=== PATIENT | female | born 1995 | race Caucasian/White ===

== ENCOUNTER 2022-12-04 16:36 | Emergency (ER) | payer OTHER ==
--- OUTSIDE RECORDS SUMMARY | 2022-12-04 16:39 | XMS REPORT | Continuity of Care Document ---
:1995 Author Organization [facility] t Address [address] [place] [address] Care Team Providers Name Role Phone Sharptammy Primary Care Physician Greg Rubi Attending Clinician Unavailable CHAYO EVANS Attending Clinician Unavailable Rekha Blandon Attending Clinician Unavailable Arvin Meier Admitting Clinician Unavailable Problems This patient has no known problems. Allergies, Adverse Reactions, Alerts This patient has no known allergies or adverse reactions. Social History Social Habit Start Date Stop Date Quantity Comments Source Alcohol intake 2016-07-07 [facility]07[facility]inker of [facility] Ce nter alcohol (finding) Sex Assigned At [birth year] [facility] 00:00:00 00:00:00 [facility] Smoking Status Start Date Stop Date Source Never smoked tobacco [facility] Medications Ordered Filled Start Stop Current Ordering Indication Dosage Frequency Signature Comments Components Source Medication Medication Date Date Medication? Clinician (SIG) Name Name MECLIZINE 2015-07 [facility] DIVALPROEX 2015-07 Yes [facility]IUM [facility] (DEPAKOTE 20:25[facility] ORAL[facility] LORAZEPAM 2015-07 Yes [facility] (ATIVAN [facility]) 20:25: Medical [address] [place] [address] LEVETIRACET 2015-07 Yes Take [facility] AM (KEPPRA [facility]) [facility] Center FLUOXETINE 2015-07 Yes Take [facility] (PROZAC [facility]) 20:25[facility] TRAZODONE 2016- Yes [facility] (TRAZODONE [facility] Procedures This patient has no known procedures. Results Test Description Test Time Test Comments Results Result Comments Source Chemistry 2019-06-20 19:54:00 Test Item Value Reference Range Interpretation Comme nts Chemistry (test code = 138 mmol/L 136-145 N NA-T) Chemistry (test code = 3.8 mmol/L 3.5-5.1 N K-T) Chemistry (test code = 104 mmol/L 98-107 N CL) Chemistry (test code = 24 mmol/L 22-29 N CO2) Chemistry (test code = 14 mmol/L 10-20 N ANGP) Chemistry (test code = 9 mg/dL 7.0-18.7 N BUN) Chemistry (test code = 0.65 mg/dL 0.6-1.1 N CREATT) Chemistry (test code = Greater than 90 Re ference Range for Estimated EGFRMDRD) GFR: Greater t garcia 90 mL/min/1.73 m2N OTE:The MDRD equation has no t been validated for u se with theelderly (ove r 70 years of age), women, patientswith se rious comorbid condition or pe rsons with extremes ofbody size, muscle mass, or nutrit ional status. Chemistry (test code = 86 mg/dL 70-105 N GLU-T) Chemistry (test code = 9.5 mg/dL 7.8-10.44 N CA) Chemistry (test code = Less than 0.2 mg/dL 0.2-1.2 L TBILI-T) Chemistry (test code = 7.0 g/dL 6.0-8.3 N TP) Chemistry (test code = 3.8 g/dL 3.5-5.0 N ALB) Chemistry (test code = 3.2 g/dL 2.4-3.5 N GLOB) Chemistry (test code = 1.2 g/dL 1.2-2.2 N AG) Chemistry (test code = 46 U/L 40-110 N NEW REFERENCE ALP) RANGES ESTABLIS HED Ef fective April 20 019, new reference range s have beenestablished based on age and sex. Chemistry (test code = 20 U/L 5-34 N AST) Chemistry (test code = 22 U/L 8-55 N ALT) [id number] 19:54:00 Test Item Value Reference Range Interpretation Comments Chemistry (test code = LIP) 32 U/L 8-78 N Chemistry - [id number] 19:47:00 Test Item Value Reference Range Interpretation Comments Chemistry - Lactate (test code = 0.7 mmol/L 0.5-2.2 N LACTSEP-T) Chemistry - [id number] 19:44:00 Test Item Value Reference Range Interpretation Comments Chemistry - Specials POSITIVE NEGATIVE A Method of sensitivity- (test code = BHCGST) Indeter minant: results should be repea rosario after 48-72 hrs Positive: resul ts may be detected as early as 1 day after the first missed me nses. [id number] 19:35:00 Test Item Value Reference Range Interpretation Comments Hematology (test code = WBCT) 6.0 thou/uL 4.8-10.8 N Hematology (test code = RBCT) 4.34 mill/uL 4.20-5.40 N Hematology (test code = HGBT) 11.7 g/dL 12.0-16.0 L Hematology (test code = HCTT) 38.1 % 36.0-47.0 N Hematology (test code = MCV) 87.7 fL 78.0-98.0 N Hematology (test code = MCH) 27.0 pg 27.0-31.0 N Hematology (test code = MCHC) 30.8 g/dL 32.0-36.0 L Hematology (test code = RDW) 14.4 % 11.5-14.5 N Hematology (test code = PLTT) 305 thou/uL 130-400 N Hematology (test code = MPV) 6.0 fL 7.4-10.4 L Hematology (test code = %NEUT) 57.2 % 42.0-75.0 N Hematology (test code = %LYMPH) 34.7 % 21.0-51.0 N Hematology (test code = %MONO) 5.7 % 0.0-10.0 N Hematology (test code = %EOS) 1.4 % 0.0-10.0 N Hematology (test code = %BASO) 0.9 % 0.0-1.0 N Hematology (test code = NEUT#) 3.5 thou/uL 1.40-6.50 N Hematology (test code = LYMPH#) 2.1 thou/uL 1.20-3.40 N Hematology (test code = MONO#) 0.4 thou/uL 0.11-0.59 N Hematology (test code = EOS#) 0.1 thou/uL 0.0-0.7 N Hematology (test code = BASO#) 0.1 thou/uL 0.0-0.2 N [id number] 21:29:00 Test Item Value Reference Range Interpretation Comments Hematology (test code = WBCT) 8.0 thou/uL 4.8-10.8 N Hematology (test code = RBCT) 3.68 mill/uL 4.20-5.40 L Hematology (test code = HGBT) 10.7 g/dL 12.0-16.0 L Hematology (test code = HCTT) 31.4 % 36.0-47.0 L Hematology (test code = MCV) 85.3 fl 81.0-99.0 N Hematology (test code = MCH) 29.0 pg 27.0-31.0 N Hematology (test code = MCHC) 34.0 g/dL 32.0-36.0 N Hematology (test code = RDW) 13.9 % 11.5-14.5 N Hematology (test code = PLTT) 279 thou/uL 130-400 N Hematology (test code = MPV) 6.0 fL 7.4-10.4 L Hematology (test code = %NEUT) 73.4 % 42.0-75.0 N Hematology (test code = %LYMPH) 19.8 % 21.0-51.0 L Hematology (test code = %MONO) 5.8 % 0.0-10.0 N Hematology (test code = %EOS) 0.2 % 0.0-10.0 N Hematology (test code = %BASO) 0.9 % 0.0-1.0 N Hematology (test code = NEUT#) 5.8 thou/uL 1.40-6.50 N Hematology (test code = LYMPH#) 1.6 thou/uL 1.20-3.40 N Hematology (test code = MONO#) 0.5 thou/uL 0.11-0.59 N Hematology (test code = EOS#) 0.0 thou/uL 0.0-0.7 N Hematology (test code = BASO#) 0.1 thou/uL 0.0-0.2 N [id number] 20:50:00 Test Item Value Reference Range Interpretation Comments Accuchek (test code = ACU) 90 mg/dL 70-110 N
[2022-12-04] MEDS ORDERED: NA CHLORIDE 0.9% 1,000 ML ONE (16:52)
[2022-12-04 17:11] LABS: Absolute Lymphocytes (CBC) 2.1 K/uL (0.7-4.9); Hematocrit 36.7 % (36.0-45.0); Lymphocytes % 31.7 % (15.3-44.8); MCV 81.8 fL (80-100); MPV 7.1 fL (7.6-11.3); RBC Red Blood Cell Count 4.49 M/uL (3.86-4.86)
[2022-12-04 17:29] LABS: Albumin 3.9 g/dL (3.4-5.0); Bilirubin Direct 0.1 mg/dL (0-0.2); Bilirubin Indirect, Calculated 0.1 (0.2-0.8); Bilirubin Total 0.2 mg/dL (0.2-1.0); Potassium 3.5 mEq/L (3.5-5.1); Troponin High Sensitivity 3.4 pg/mL (<58.9)
--- NOTE | 2022-12-04 17:36 | RAD REPORT ---
EXAM DESCRIPTION: RAD - Chest Single View - 12/04/2022 5:19 pm CLINICAL HISTORY: weakness Chest pain. COMPARISON: <Comparisons> FINDINGS: Portable technique limits examination quality. Mild interstitial prominence is present bilaterally. The heart is normal in size. No displaced fractu res. IMPRESSION: No acute intrathoracic process suspected.
--- NOTE | 2022-12-04 17:52 | RAD REPORT ---
EXAM DESCRIPTION: CT - Head Brain Wo Cont - 12/04/2022 5:45 pm CLINICAL HISTORY: weakness;Dizziness Headache, drowsiness COMPARISON: <Comparisons> TECHNIQUE: All CT scans are performed using dose optimization technique as appropriate and may inclu de automated exposure control or mA/KV adjustment according to patient size. FINDINGS: No intracranial hemorrhage, hydrocephalus or extra-axial fluid collection.No areas of brai n edema or evidence of midline shift. The paranasal sinuses and mastoids are clear. The calvarium is intact. IMPRESSION: No acute intracranial abnormality.
[2022-12-04] MEDS ORDERED: LORAZEPAM 1 MG TABLET ONE (18:05)
[2022-12-04] MEDS ORDERED: MECLIZINE HCL 12.5 MG TAB ONE (18:05)
--- NOTE | 2022-12-04 19:10 | ER ---
Nurse's Notes [facility] Name: Corrie Hartman Age: 27 yrs Sex: Female : 1995 Arrival Date: 12/04/2022 Time: 16:36 Bed 2 Private MD: Diagnosis: Weakness;Dizziness and giddiness;Encounter for issue of repeat prescription Presentation: 12/04 16:46 Chief complaint: EMS states: pt has juliann out of her meds X 1 week, has been feeling weak iw , dizzy . She takes fluoxetine, clonazepam, trazodone, she was going to see Dr. Perez but she didn't have a referral. Coronavirus screen: At this time, the client does not indicate any symptoms associated with coronavirus-19. Ebola Screen: Patient negative for fever greater than or equal to 101.5 degrees Fahrenheit, and additional compatible Ebola Virus Disease symptoms Patient denies exposure to infectious person. Patient denies travel to an Ebola-affected area in the 21 days before illness onset. No symptoms or risks identified at this time. Initial Sepsis Screen: Does the patient meet any 2 criteria? No. Patient's initial sepsis screen is negative. Does the patient have a suspected source of infection? No. Patient's initial sepsis screen is negative. Risk Assessment: Do you want to hurt yourself or someone else? Patient reports no desire to harm self or others. Onset of symptoms was December 04, 2022. 16:46 Method Of Arrival: EMS: [facility] iw 16:46 Acuity: MARKO 3 iw Triage Assessment: 19:25 General: Appears comfortable, Behavior is cooperative. Pain: Denies pain. Neuro: Level ha1 of Consciousness is awake, alert, obeys commands, Oriented to person, place, time, situation. Respiratory: Airway is patent Respiratory effort is even, unlabored, Respiratory pattern is regular, symmetrical. Musculoskeletal: Circulation, motion, and sensation intact. 19:25 Derm: Skin is pink, warm \T\ dry. 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 - Social history:: Smoking status: Patient denies any tobacco usage or history of. Screenin:23 [facility] ED Fall Risk Assessment (Adult) History of falling in the last 3 months, iw including since admission. Abuse screen: Denies threats or abuse. Denies injuries from another. Nutritional screening: No deficits noted. Tuberculosis screening: No symptoms or risk factors identified. Assessment: 18:23 Reassessment: Patient appears in no apparent distress at this time. Patient and/or iw family updated on plan of care and expected duration. Pain level reassessed. Patient is alert, oriented x 3, equal unlabored respirations, skin warm/dry/pink. Patient states symptoms have not improved. Vital Signs: 16:45 BP 129 / 96; Pulse 110; Resp 19 S; Pulse Ox 100% on R/A; Weight 158.76 kg; Height 5 ft. iw 4 in. ; Pain 0/10; 17:30 BP 119 / 76; Pulse 98; Resp 16; Pulse Ox 98% on R/A; Pain 0/10; iw 16:45 Body Mass Index 60.08 (158.76 kg, 162.56 cm) iw 16:45 Pain Scale: Adult iw 17:30 Pain Scale: Adult iw ED Course: 16:39 Patient arrived in ED. bd 16:39 Pal Duran PA is PHCP. cp 16:39 Raul Cristina DO is Attending Physician. cp 16:49 Triage completed. iw 16:54 Patient has correct armband on for positive identification. iw 16:55 Missed attempt(s): 20 gauge in right antecubital area. Bleeding controlled, band aid ss applied, catheter tip intact. 17:00 Inserted saline lock: 22 gauge in right hand, using aseptic technique. Blood collected. ss 17:17 Joselyn Lopez, RN is Primary Nurse. iw 17:21 XRAY Chest (1 view) In Process Unspecified. EDMS 17:47 CT Head Brain wo Cont In Process Unspecified. EDMS 19:12 Arm band placed on. ha1 20:01 No provider procedures requiring assistance completed. ha1 20:01 IV discontinued, intact, bleeding controlled, No redness/swelling at site. Pressure ha1 dressing applied. Administered Medications: 17:02 Drug: NS 0.9% IV 1000 ml Route: IV; Rate: 1 bolus; Site: right hand; ss 18:45 Follow up: IV Status: Completed infusion iw 18:06 Drug: Meclizine PO 25 mg Route: PO; iw 18:40 Follow up: Response: No adverse reaction iw 18:06 Drug: LORazepam PO 1 mg Route: PO; iw 18:36 Follow up: Response: No adverse reaction iw Medication: 20:01 VIS not applicable for this client. ha1 Outcome: 19:09 Discharge ordered by . rosaura 20:01 Condition: stable ha1 20:01 Discharged to home via wheelchair. ha1 20:01 Discharge instructions given to patient, Instructed on discharge instructions, follow up and referral plans. medication usage, Demonstrated understanding of instructions, follow-up care, medications, Prescriptions given X 3. 20:08 Patient left the ED. kl Signatures: Dispatcher [employer] EDMS Carolina Simental Kimberly, RN RN kl Williams, Irene, RN RN iw Smirch, Shelby, RN RN ss Page, Corey, PA PA cp Ayala, Heidy, RN RN ha1
--- NOTE | 2022-12-04 19:10 | EDPHYS ---
Physician Documentation [facility] Name: Corrie Hartman Age: 27 yrs Sex: Female : 1995 Arrival Date: 12/04/2022 Time: 16:36 Bed 2 Private MD: ED Physician Raul Cristina HPI: 12/04 16:45 This 27 yrs old Female presents to ER via EMS with complaints of General Weakness, cp Dizziness. 16:45 The patient's problem is reported as weakness, that is generalized, dizziness. Onset: cp The symptoms/episode began/occurred today. 16:45 Duration: The episode is continuous. cp 16:45 Context: occurred while the patient was attempting to get up and walk. Associated signs cp and symptoms: Pertinent negatives: chest pain, constipation, cough, fever, vomiting. 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 - Social history:: Smoking status: Patient denies any tobacco usage or history of. ROS: 16:50 Constitutional: Negative for body aches, chills, fever, poor PO intake. cp 16:50 Cardiovascular: Negative for chest pain, edema, palpitations. cp 16:50 Eyes: Negative for injury, pain, redness, and discharge. cp 16:50 ENT: Negative for drainage from ear(s), ear pain, sore throat, difficulty swallowing, difficulty handling secretions. 16:50 Respiratory: Negative for cough, shortness of breath, wheezing. 16:50 Abdomen/GI: Negative for abdominal pain, vomiting, diarrhea, constipation. 16:50 : Negative for urinary symptoms, vaginal bleeding. 16:50 Neuro: Positive for dizziness, weakness, Negative for altered mental status, headache, syncope. 16:50 All other systems are negative. cp Exam: 16:55 Constitutional: The patient appears in no acute distress, alert, awake, cp non-diaphoretic, non-toxic, well developed, well nourished, obese. 16:55 Head/Face: Normocephalic, atraumatic. cp 16:55 Eyes: Periorbital structures: appear normal, Pupils: equal, round, and reactive to light and accomodation, Extraocular movements: intact throughout, Conjunctiva: normal, no exudate, no injection, Sclera: no appreciated abnormality, Lids and lashes: appear normal, bilaterally. 16:55 ENT: External ear(s): are unremarkable, Ear canal(s): are normal, clear, TM's: cp dullness, bilaterally, Nose: is normal, Mouth: Lips: moist, Oral mucosa: pink and intact, moist, Posterior pharynx: is normal, airway is patent, no erythema, no exudate. 16:55 Neck: ROM/movement: is normal, is supple, without pain, no range of motions limitations. 16:55 Chest/axilla: Inspection: normal, Palpation: is normal, no crepitus, no tenderness. 16:55 Cardiovascular: Rate: Rhythm: regular. 16:55 Respiratory: the patient does not display signs of respiratory distress, Respirations: cp normal, no use of accessory muscles, no retractions, labored breathing, is not present, Breath sounds: are clear throughout, no decreased breath sounds, no stridor, no wheezing. 16:55 Abdomen/GI: Inspection: obese Palpation: abdomen is soft and non-tender, in all quadrants. 16:55 Back: pain, is absent, ROM is normal. 16:55 Skin: cellulitis, is not appreciated, no rash present. 16:55 Neuro: Orientation: to person, place \T\ time. Mentation: is normal, Cerebellar function: is grossly normal, Motor: moves all fours, strength is normal, Sensation: is normal. 18:00 Radiologist reports: no acute findings 18:25 ECG was reviewed by the Attending Physician. cp Vital Signs: 16:45 BP 129 / 96; Pulse 110; Resp 19 S; Pulse Ox 100% on R/A; Weight 158.76 kg; Height 5 ft. iw 4 in. ; Pain 0/10; 17:30 BP 119 / 76; Pulse 98; Resp 16; Pulse Ox 98% on R/A; Pain 0/10; iw 16:45 Body Mass Index 60.08 (158.76 kg, 162.56 cm) iw 16:45 Pain Scale: Adult iw 17:30 Pain Scale: Adult iw MDM: 16:39 Patient medically screened. cp 19:07 Data reviewed: vital signs, nurses notes, lab test result(s), EKG, radiologic studies, cp CT scan. ED course: Patient declines to provide urine sample at this time. Will refill psych meds and discharge to home for continued monitoring. 05 16:42 Order name: Basic Metabolic Panel; Complete Time: 17:54 05/10 17:54 Interpretation: Normal except: CL 109. / 16:42 Order name: CBC with Diff; Complete Time: 17:22 / 17:22 Interpretation: Normal except: MCH 26.8; RDW 16.0; MPV 7.1. / 16:42 Order name: Magnesium; Complete Time: 17:54 / 17:54 Interpretation: Reviewed. 12/04 16:42 Order name: Troponin HS; Complete Time: 17:54 / 17:54 Interpretation: Reviewed. 12/04 16:42 Order name: Hepatic Function; Complete Time: 17:54 12/04 17:54 Interpretation: Normal except: AST 14; IBILI, CALC 0.1; GLOB 4.1; A/G 1.0. 12/04 16:42 Order name: XRAY Chest (1 view); Complete Time: 17:54 12/04 17:54 Interpretation: Report reviewed. 12/04 16:49 Order name: CT Head Brain wo Cont; Complete Time: 17:54 12/04 17:55 Interpretation: Report reviewed. 12/04 16:42 Order name: EKG; Complete Time: 16:42 12/04 16:42 Order name: Cardiac monitoring; Complete Time: 18:22 12/04 16:42 Order name: EKG - Nurse/Tech; Complete Time: 18:22 12/04 16:42 Order name: IV Saline Lock; Complete Time: 17:03 12/04 16:42 Order name: Labs collected and sent; Complete Time: 17:03 12/04 16:42 Order name: O2 Per Protocol; Complete Time: 17:03 12/04 16:42 Order name: O2 Sat Monitoring; Complete Time: 17:03 cp EC:25 Rate is 91 beats/min. Rhythm is regular. KY interval is normal. QRS interval is normal. cp QT interval is normal. T waves are Inverted in lead aVR. Interpreted by me. Reviewed by me. Administered Medications: 17:02 Drug: NS 0.9% IV 1000 ml Route: IV; Rate: 1 bolus; Site: right hand; ss 18:45 Follow up: IV Status: Completed infusion iw 18:06 Drug: Meclizine PO 25 mg Route: PO; iw 18:40 Follow up: Response: No adverse reaction iw 18:06 Drug: LORazepam PO 1 mg Route: PO; iw 18:36 Follow up: Response: No adverse reaction iw Disposition Summary: 12/04/22 19:09 Discharge Ordered Location: Home cp Problem: new cp Symptoms: have improved cp Condition: Stable cp Diagnosis - Weakness cp - Dizziness and giddiness cp - Encounter for issue of repeat prescription cp Followup: cp - With: Private Physician - When: 2 - 3 days - Reason: Recheck today's complaints Discharge Instructions: - Discharge Summary Sheet cp - Dizziness cp - Medicine Refill at the Emergency Department cp - Weakness cp Forms: - Medication Reconciliation Form cp - Thank You Letter cp - Antibiotic Education cp - Prescription Opioid Use cp Prescriptions: - Vistaril 50 mg Oral capsule - take 1 capsule by ORAL route 3 times per day; 30 capsule; Refills: 0, Product cp Selection Permitted - trazodone 50 mg Oral tablet - take 1 tablet by ORAL route every day at bedtime as needed for insomnia; 30 cp tablet; Refills: 0, Product Selection Permitted - Fluoxetine 20 mg Oral Tablet - take 1 tablet by ORAL route once daily in the morning; 30 tablet; Refills: 0, cp Product Selection Permitted Signatures: Dispatcher [employer] Joselyn Gonzalez RN RN iw Smirch, Shelby, RN RN ss Page, Corey, PA PA cp
[2022-12-04 20:44] VITALS: BP 119/76; O2SAT 98
== END 2022-12-04 20:08 | disposition home or self-care (01) ==
LOC: ER 16:36
DX: R53.1 Weakness (principal); R42 Dizziness and giddiness; Z76.0 Encounter for issue of repeat prescription
CPT/HCPCS: 85025; 80048; 36415; 83735; 80076; 84484; 70450; 71045; J8597; J7030

== ENCOUNTER 2022-12-20 22:06 | Emergency (ER) | payer OTHER ==
--- OUTSIDE RECORDS SUMMARY | 2022-12-20 22:09 | XMS REPORT | Continuity of Care Document ---
:1995 Author Organization [facility] t Address [address] [place] [address] Care Team Providers Name Role Phone Sharpless Primary Care Physician Greg Rubi Attending Clinician Unavailable CHAYO EVANS Attending Clinician Unavailable Rekha Blandon Attending Clinician Unavailable Arvin Meier Admitting Clinician Unavailable Problems This patient has no known problems. Allergies, Adverse Reactions, Alerts This patient has no known allergies or adverse reactions. Social History Social Habit Start Date Stop Date Quantity Comments Source Alcohol intake 2016-07-07 2016-07-07 [facility] non-drinker of Medical Ce nter alcohol (finding) Sex Assigned At [birth year] [facility] ke 00:00:00 00:00:00 [facility] Smoking Status Start Date Stop Date Source Never smoked tobacco [facility] Medications Ordered Filled Start Stop Current Ordering Indication Dosage Frequency Signature Comments Components Source Medication Medication Date Date Medication? Clinician (SIG) Name Name DIVALPROEX 2015-07 Yes Take [facility] (DEPAK[facility] 20:25[facility] MECLIZINE 2015-07 Yes [facility] (MECLIZINE 20:25: [facility] ORAL[facility] DIVALPROEX 2015-07 Yes [facility] (DEPAKOTE 20:25: Medical ORAL) [facility] LORAZEPAM 2015-07 Yes [facility]ATIVAN [facility]) 20:25: [facility] LEVETIRACET 2015-07 Yes Take [facility] (KEPPRA 2-[facility] ORAL) 20:25: [address] FLUOXETINE 2015-07 Yes Take [facility] H[facility] (PROZAC 2-[facility] ORAL) 20:25: [address] TRAZODONE 2015-07 Yes [facility] (TRAZODONE 20:25: Medical ORAL) Center LORAZEPAM 2015-07 Yes [facility] (ATIVAN [facility]) 20:25: [address] LEVETIRACET 2015-07 Yes Take [facility] (KEPPRA 2-[facility] ORAL) 20:25: [address] FLUOXETINE 2015-07 Yes Take by [facility] (PROZAC 2-[facility] ORAL) 20:25: [address] TRAZODONE 2015-07 Yes [facility] (TRAZODONE 20:25: Medical ORAL) [address] [place] [address] MECLIZINE 2015-07 Yes [facility] (MECLIZINE 20:25: Medical ORAL) Center Procedures This patient has no known [...] ference Range for Estimated EGFRMDRD) GFR: Greater th an 90 mL/min/1.73 m2N OTE:The MDRD equation has [...] code = 22 U/L 8-55 N ALT) [id number] 19:54:00 Test Item Value Reference Range Interpretation Comments Chemistry (test code = LIP) 32 U/L 8-78 N Chemistry - [id number] 19:47:00 Test Item Value Reference Range Interpretation Comments Chemistry - Lactate (test code = 0.7 mmol/L 0.5-2.2 N LACTSEP-T) Chemistry - [id number] 19:44:00 Test Item Value Reference Range Interpretation Comments Chemistry - Specials POSITIVE NEGATIVE A Method of sensitivity- (test code = BHCGST) Indeter minant: results should be repea rosario after 48-72 hrs Positive: resul ts may be detected as early as 1 day after the first missed me nses. [id number] 19:35:00 Test Item Value Reference Range Interpretation [...] code = BASO#) 0.1 thou/uL 0.0-0.2 N [id number] 21:29:00 Test Item Value Reference Range Interpretation [...] code = BASO#) 0.1 thou/uL 0.0-0.2 N [id number] 20:50:00 Test Item Value Reference Range Interpretation Comments Accuchek (test code = ACU) 90 mg/dL 70-110 N Notes Date/Time Note Provider Source 2017-12-17 21:03:00-00:00 [facility] Name: PETEY OBANDO [facility] [address] : 1995, Age: 22, Sex: JUAN ANTONIO [place]án[place] [address] Unit #: [id number], Status: [facility] [phone] Location: D/OP Report Dict DrGlen: CHAYO EVANS MD Admission Date: Report #: [id number] Discharge Date: CC: Labor and Delivery H P Labor and Delivery H P Chief complaint: decreased movement HPI: 22 y/o at 30w2d, pat anamika of Dr. Cedeno at [facility] in [place], presents with decreased FM and fever. She describes a headache since yesterday and fever up to 102.6 at home. Denies VB, abd pain, LOF, UTI sx, back pain, N/V/d. ROS neg for HEENT, cv, pulm, gi, gu, neuro, psych, skin, musculoskeletal or constitutional sx other than mentioned above. OB History Details: 1 prior ELTCS at 36 weeks at [place]. Baby at 7 months due to a "genetic disorder." Current complicati ons: gestational diabetes (A2), other (Morbid obesity) Past Medical History: Hypothyroidism Morbid Obesity Bipolar d/o Current medications: pre-casie al vitamins, other (Keppra, metformin (not taken), synthroid, prozac, Tums, Tylenol, meclazine) Previous surgical history: low tranverse CS Allergies/Adverse Reactions: Allergies Allergy/AdvReac Type Severity Reaction Status Da te / Time Sulfa (Sulfonamide Allergy Verified 04/15/16 22: 53 Antibiotics) Social history: none - Physical Exam Vital signs reviewed and normal: yes General: NAD, resting Heart: RRR Lungs: CTAB Abdomen: gravid (NTTP) Extremeties: no edema - OB Labs Additional Labs: Laboratory Tests 12/17/17 12/17/17 20:43 21:23 WBC 8.0 RBC 3.68 L Hgb 10.7 L Hct 31.4 L MCV 85.3 MCH 29.0 MCHC 34.0 RDW 13.9 Plt Count 279 MPV 6.0 L Neutrophils % 73.4 Lymphocytes % 19.8 L Monocytes % 5.8 Eosinophils % 0.2 Basophils % 0.9 Neutrophils # 5.8 Lymphocytes # 1.6 Monocytes # 0.5 Eosinophils # 0.0 Basophils # 0.1 POC Glucose 90 - Assessment 22 y/o at 30w2d with BPP of 8/8. Unable to obtain NST due to maternal body habitus. Afebrile here and asymptomat ic other than a headache. No WBC count, no left shift. Received Tylenol in ambulance. - Plan -: D/c home with precautions. A dvised to keep all appointments and call clinic if symptoms develop. <Electronically signed by Chayo Evans MD> [id number] 2016-04-22 02:03:00-00:00 [facility] Name: PETEY OBANDO [facility] [address] : 1995, Age: 20, Sex: F JUAN ANTONIO [place] [address] Unit #: [id number], Status: DIS IN [phone] Location: [facility] 207 Report Dict DrGlen: AYAZ COLE DO Admission Date: 04/19/16 Report #: [id number] Discharge Date: 04/20/16 CC: Rekha Blandon MD, KYLE C DO McClellan, David MD Perrone, Janelle MD DISCHARGE SUMMARY REPORT DATE OF ADMISSION: 04/19/2016 DATE OF DISCHARGE: 04/20/2016 RESIDENT: Ayaz Cole D.O. ADMITTING PHYSICIAN: Rekha Blandon M.D. DISCHARGE ATTENDING: Rekha Blandon M.D. CONSULT: Mer Odom M.D. with Neurology. PROCEDURES: None. PRIMARY DIAGNOSIS: Seizure disorder. SECONDARY DIAGNOSES: 1. Presyncopal episode. 2. Intrauterine in third trimester. 3. Bipolar disorder. 4. Anxiety. 5. Hypothyroidism. HISTORY OF PRESENT ILLNESS AND HOSPITAL COURSE: This is a 20-year-old G1, P0 at 33 weeks and 5 days on presentation that ca me in for a presyncopal episode happened in the bathroom after urinating when standing up w hile in [facility]. She has had multiple episodes similar to this over the last several d ays to weeks and has a history of seizure disorder that has been being treated. She has in the proc ess of having workup with Dr. Allen with Neurology as well as [facility] [employer], and she also h as psychiatrist that sees her and her primary care physician. She has been too many physicians rec ently trying to figure out exactly what is going on and her mother frustrated with lack of answ ers they say. She recently was started on Tegretol by her psychiatrist , which was stopped by us, a nd she also has a history of Topamax use that she was on when she found out that she was . T here is a concern for injury during this medications and [facility] We advised patient to not continue take Tegretol. She was observed overnight, had no other symptoms. No seizures. No syncopal episodes. No near syncope or dizziness. She wa s able to get up and go to the bathroom several times without complaint. She did continue on her levothyroxine, vitamin, iron as well and Keppra here. Dr. Mer Odom increased h er Keppra from 1000 mg b.i.d. to 1250 in the morning and 1000 mg in the evening. This recently had b een decreased outpatient by Dr. Allen at 1000 p.o. b.i.d. from 1500 p.o. b.i.d. and prior to enma t, she was on 1000 p.o. b.i.d. as well, so she was in the middle. There was a discussion with the patient about need for continued followup with her Psychiatrist as well [facility] and given that she was at her Keppra dose changed and now was symptom free while in the [facility], she was discharged to the care for primary team also in the hospital. DISPOSITION: Stable. DISCHARGE INSTRUCTIONS: 1. Discharged to home. 2. Resume regular diet as tolerated. 3. Resume regular activity as tolerated. 4. Follow up with Dr. Tone estevez within 3 days as well as follow up with Psychiatrist within the next week and be sure to stop Tegretol, as it is toxic to fetus. This discharge summary was discussed with Dr. Rekha Blandon was in the accordance with plan. <Electronically signed by Ayaz Cole DO> D ate/Time: 04/23/16 0644 <Electronically signed by Chayo Zuñiga DO> Amarjit e/Time: 08/16/17 1145 Dictated Date/Time: 04/21/161914 Transcribed Date/Time: 04/22/16201 Jewelry Appraiser: ROSA
[2022-12-20] MEDS ORDERED: NALOXONE 0.4 MG/ML VIAL ONE (22:27)
[2022-12-20] MEDS ORDERED: NALOXONE HCL 2 MG/2 ML VIAL ONE (22:31)
[2022-12-20 22:56] LABS: Absolute Lymphocytes (CBC) 2.5 K/uL (0.7-4.9); MPV 7.4 fL (7.6-11.3); RBC Red Blood Cell Count 4.15 M/uL (3.86-4.86)
[2022-12-20 22:57] LABS: Protime INR 0.99
[2022-12-20 23:46] LABS: ALT/SGPT 29 U/L (13-56); AST/SGOT 16 U/L (15-37); Albumin 3.6 g/dL (3.4-5.0); Alkaline Phosphatase 62 U/L (45-117); BUN Blood Urea Nitrogen 13 mg/dL (7-18); Bicarbonate 28 mEq/L (21-32); Bilirubin Direct < 0.1 mg/dL (0-0.2); Bilirubin Indirect, Calculated ND mg/dL (0.2-0.8); Bilirubin Total 0.2 mg/dL (0.2-1.0); Glomerular Filtration Rate 97 ml/min (=/>90); Glucose Level 100 mg/dL (74-106); Potassium 3.5 mEq/L (3.5-5.1); Protein, Total 7.5 g/dL (6.4-8.2); Sodium Level 135 mEq/L (136-145)
[2022-12-21 01:15] LABS: Barbiturates NEGATIVE (NEGATIVE); Benzodiazepines NEGATIVE (NEGATIVE); Cocaine NEGATIVE (NEGATIVE); METHAMPHETAM NEGATIVE (NEGATIVE); Methadone NEGATIVE (NEGATIVE); Opiates NEGATIVE (NEGATIVE); Phencyclidine NEGATIVE (NEGATIVE); THC Cannibis POSITIVE (NEGATIVE); Urine Bacteria None Seen /HPF (<20); Urine Bilirubin NEGATIVE (Negative); Urine Blood Negative (Negative); Urine Clarity Clear (Clear); Urine Color Light-Yellow (Yellow); Urine Glucose NEGATIVE (Negative); Urine Mucus 2+ /HPF (None Seen); Urine Protein TRACE (Negative); Urine RBC <5 /HPF (None Seen); Urine Urobilinogen Normal (Normal); Urine pH 5.5 (5.0-7.0)
--- NOTE | 2022-12-21 01:15 | ER ---
Nurse's Notes [facility] Name: Corrie Hartman Age: 27 yrs Sex: Female : 1995 Arrival Date: 12/20/2022 Time: 22:06 Bed 6 Private MD: Diagnosis: Nontraumatic subdural hemorrhage, unspecified Presentation: 12/20 22:09 Chief complaint: EMS states: 27 year old female was found unresponsive laying on her [facility] bed. When we arrive she would respond to name after performing sternum rub. 22:09 Coronavirus screen: Vaccine status:. Ebola Screen: No symptoms or risks identified at [facility] this time. Initial Sepsis Screen: Does the patient meet any 2 criteria? No. Patient's initial sepsis screen is negative. Does the patient have a suspected source of infection? No. Patient's initial sepsis screen is negative. Risk Assessment: Do you want to hurt yourself or someone else? Patient reports no desire to harm self or others. Onset of symptoms was December 20, 2022. 22:09 Method Of Arrival: EMS: [place] [id number] 22:09 Acuity: MARKO 3 [facility] 22:43 Chief complaint:. [facility] Triage Assessment: 22:09 General: Appears in no apparent distress. Behavior is drowsy, responding to name only. ha Pain: Unable to use pain scale. FLACC scale score is 0 out of 10. Neuro: Level of Consciousness is lethargic, Oriented to person. Cardiovascular: Capillary refill < 3 seconds Patient's skin is warm and dry. Rhythm is sinus rhythm. Respiratory: Airway is patent Respiratory effort is even, unlabored, Respiratory pattern is regular, symmetrical. GI: Abdomen is non-distended, obese. : No signs and/or symptoms were reported regarding the genitourinary system. Derm: Skin is pink, warm \T\ dry. Musculoskeletal: Circulation, motion, and sensation intact. Range of motion: intact in all extremities. Historical: - Allergies: 22:09 No Known Allergies; ha1 - PMHx: 22:09 Anxiety; depressive disorder; ha1 - PSHx: 22:09 None; ha1 - Immunization history:: Adult Immunizations unknown. - Social history:: Smoking status: unknown. Screenin/27 02:47 [facility] ED Fall Risk Assessment (Adult) History of falling in the last 3 months, ll3 including since admission No falls in past 3 months (0 pts) Confusion or Disorientation No (0 pts) Intoxicated or Sedated No (0 pts) Impaired Gait No (0 pts) Mobility Assist Device Used No (0 pt) Altered Elimination No (0 pt) Score/Fall Risk Level 0 - 2 = Low Risk Oriented to surroundings, Maintained a safe environment, Educated pt \T\ family on fall prevention, incl call for assistance when getting out of bed. Abuse screen: Denies threats or abuse. Denies injuries from another. Nutritional screening: No deficits noted. Tuberculosis screening: No symptoms or risk factors identified. Assessment: 12/20 22:09 General: see triage assessment . ha1 12/21 00:00 Reassessment: Patient and/or family updated on plan of care and expected duration. Pain ha1 level reassessed. Patient is alert, oriented x 3, equal unlabored respirations, skin warm/dry/pink. 01:00 Reassessment: Patient and/or family updated on plan of care and expected duration. Pain ha1 level reassessed. Patient is alert, oriented x 3, equal unlabored respirations, skin warm/dry/pink. Patient denies pain at this time. 02:00 Reassessment: Patient and/or family updated on plan of care and expected duration. Pain ha1 level reassessed. Patient is alert, oriented x 3, equal unlabored respirations, skin warm/dry/pink. 02:50 Reassessment: Patient and/or family updated on plan of care and expected duration. Pain ha1 level reassessed. Patient is alert, oriented x 3, equal unlabored respirations, skin warm/dry/pink. 02:50 Reassessment: Report was given to receiving nurse AMY Rosenbaum by AMY Tenorio. 1 Vital Signs: 12/20 22:00 BP 136 / 91; Pulse 97; Resp 14 S; Temp 98.2(O); Pulse Ox 100% on 3 lpm NC; Weight ha1 149.69 kg; Height 5 ft. 6 in. ; 23:30 BP 125 / 84; Pulse 96; Resp 18; Pulse Ox 99% on R/A; ll3 12/21 00:30 BP 135 / 84; Pulse 95; Resp 18; Pulse Ox 98% on R/A; ll3 01:15 BP 106 / 89; Pulse 82; Resp 18 S; Pulse Ox 96% on R/A; ha1 02:11 BP 111 / 76; Pulse 82; Resp 16; Pulse Ox 99% on R/A; ll3 12/20 22:00 Body Mass Index 53.26 (149.69 kg, 167.64 cm) ha1 [place] Coma Score: 12/20 22:25 Eye Response: to voice(3). Motor Response: obeys commands(6). Verbal Response: cp oriented(5). Total: 14. ED Course: 22:09 Patient arrived in ED. as7 22:09 Arm band placed on right wrist. ha1 22:09 Patient has correct armband on for positive identification. Placed in gown. Bed in low ha1 position. Call light in reach. Side rails up X 1. 22:10 Pal Duran PA is PHCP. cp 22:10 Raul Cristina DO is Attending Physician. cp 22:26 Acetaminophen Sent. ha1 22:26 Basic Metabolic Panel Sent. ha1 22:26 CBC with Diff Sent. ha1 22:26 ETOH Level Sent. ha1 22:26 Hepatic Function Sent. ha1 22:26 PT-INR Sent. ha1 22:26 Test, Urine Sent. ha1 22:26 Ptt, Activated Sent. ha1 22:26 Salicylate Sent. ha1 23:06 CT Head Brain wo Cont In Process Unspecified. EDMS 23:29 Susan Dangelo, RN is Primary Nurse. ha1 23:39 Triage completed. ha1 12/21 02:40 CT C Spine In Process Unspecified. EDMS 02:50 No provider procedures requiring assistance completed. ha1 02:50 Patient transferred, IV remains in place. ha1 Administered Medications: 12/20 22:26 Drug: Naloxone IVP 2 mg Route: IVP; Site: left antecubital; ha1 Medication: 12/21 02:48 VIS not applicable for this client. ll3 Outcome: 01:15 ER care complete, transfer ordered by . cp 02:50 Transferred by ground EMS to [facility], Transfer form completed. Note: ha1 [facility]. By [facility]. 02:50 Condition: stable 02:50 Discharge instructions given to patient, Instructed on the need for transfer, Demonstrated understanding of instructions. 02:59 Patient left the ED. ha1 Signatures: Dispatcher [employer] Pal Wall PA PA cp Loubet, Lynsea, RN RN ll3 Susan Dangelo RN RN ha1 Cris, Caitlyn as7
--- NOTE | 2022-12-21 01:16 | EDPHYS ---
Physician Documentation [facility] Name: Corrie Hartman Age: 27 yrs Sex: Female : 1995 Arrival Date: 12/20/2022 Time: 22:06 Bed 6 Private MD: ED Physician Raul Cristina HPI: 12/20 22:15 This 27 yrs old Female presents to ER via EMS with complaints of Altered Mental Status. cp 22:15 Patient is a 27-year-old female brought to the emergency room by EMS. EMS reports they cp were called to patient's home by her who reportedly found patient unresponsive laying face down on her bed. Patient was reportedly last seen to be normal approximately 30 minutes prior to EMS arrival. Upon arrival patient is answering questions appropriately but slow to respond. Patient reports she did smoke marijuana earlier today and denies any trauma. 22:15 Patient's baseline: Neuro: alert and fully oriented, Motor: no deficits, Ambulation: cp walks without assistance, Speech: normal. Historical: - Allergies: 22:09 No Known Allergies; ha1 - PMHx: 22:09 Anxiety; depressive disorder; ha1 - PSHx: 22:09 None; ha1 - Immunization history:: Adult Immunizations unknown. - Social history:: Smoking status: unknown. ROS: 22:20 Neuro: Positive for altered mental status. cp 22:50 Constitutional: Negative for fever. cp 22:50 Cardiovascular: Negative for chest pain. cp 22:50 Unable to obtain ROS due to altered mental status. Exam: 22:25 Constitutional: The patient appears in no acute distress, non-diaphoretic, non-toxic, cp well developed, well nourished, obese. 22:25 Head/Face: Normocephalic, atraumatic. cp 22:25 Eyes: Periorbital structures: appear normal, Pupils: equal, round, and reactive to light and accomodation, Extraocular movements: intact throughout, Conjunctiva: normal, no exudate, no injection, Sclera: no appreciated abnormality, Lids and lashes: appear normal, bilaterally. 22:25 ENT: External ear(s): are unremarkable, Nose: is normal, Mouth: Lips: moist, Oral mucosa: pink and intact, moist, Posterior pharynx: is normal, airway is patent, no erythema, no exudate. 22:25 Neck: C-spine: vertebral tenderness, is not appreciated, crepitus, is not appreciated. 22:25 Chest/axilla: Inspection: normal, Palpation: is normal, no crepitus, no tenderness. 22:25 Cardiovascular: Rate: normal, Rhythm: regular, Edema: is not appreciated, JVD: is not appreciated. 22:25 Respiratory: the patient does not display signs of respiratory distress, Respirations: normal, no use of accessory muscles, no retractions, labored breathing, is not present, Breath sounds: are clear throughout, no decreased breath sounds, no stridor, no wheezing. 22:25 Abdomen/GI: Inspection: obese Bowel sounds: active, all quadrants, Palpation: abdomen is soft and non-tender, in all quadrants. 22:25 Neuro: Orientation: to person, place, situation, Mentation: able to follow commands, slow to respond, Cerebellar function: Romberg testing is negative, Motor: moves all fours, strength is normal, Sensation: no obvious gross deficits. 23:17 ECG was reviewed by the Attending Physician. cp Vital Signs: 22:00 BP 136 / 91; Pulse 97; Resp 14 S; Temp 98.2(O); Pulse Ox 100% on 3 lpm NC; Weight ha1 149.69 kg; Height 5 ft. 6 in. ; 23:30 BP 125 / 84; Pulse 96; Resp 18; Pulse Ox 99% on R/A; ll3 12/21 00:30 BP 135 / 84; Pulse 95; Resp 18; Pulse Ox 98% on R/A; ll3 01:15 BP 106 / 89; Pulse 82; Resp 18 S; Pulse Ox 96% on R/A; ha1 02:11 BP 111 / 76; Pulse 82; Resp 16; Pulse Ox 99% on R/A; ll3 12/20 22:00 Body Mass Index 53.26 (149.69 kg, 167.64 cm) ha1 [place] Coma Score: 12/20 22:25 Eye Response: to voice(3). Motor Response: obeys commands(6). Verbal Response: cp oriented(5). Total: 14. MDM: 22:11 Patient medically screened. cp 12/21 01:30 Data reviewed: vital signs, nurses notes, lab test result(s), radiologic studies, CT cp scan. 01:40 Management of patient was discussed with the following: DR Dalton Zapien, neurosurgery, cp will be the accepting physician \T\Josr Wolf in the medical center. 12/20 22:12 Order name: Acetaminophen; Complete Time: 00:06 cp 12/20 22:12 Order name: Basic Metabolic Panel; Complete Time: 00:06 cp 12/21 00:07 Interpretation: Normal except: NA 135. cp 12/20 22:12 Order name: CBC with Diff; Complete Time: 23:13 cp 12/20 23:13 Interpretation: Normal except: HGB 11.2; HCT 34.0; RDW 16.2; MPV 7.4. cp 12/20 22:12 Order name: ETOH Level; Complete Time: 00:06 cp 12/20 22:12 Order name: Hepatic Function; Complete Time: 00:06 cp 12/21 00:07 Interpretation: Normal except: GLOB 3.9; A/G 0.9. 12/20 22:12 Order name: PT-INR; Complete Time: 23:13 cp 12/20 22:12 Order name: Test, Urine; Complete Time: 01:22 cp 12/20 22:12 Order name: Ptt, Activated; Complete Time: 23:13 cp 12/20 22:12 Order name: Salicylate; Complete Time: 00:06 cp 12/20 22:12 Order name: Urinalysis w/ reflexes; Complete Time: 01:18 cp 12/20 22:12 Order name: Urine Drug Screen; Complete Time: 01:18 cp 12/20 22:12 Order name: CT Head Brain wo Cont cp 12/21 00:45 Order name: CT C Spine 12/20 22:12 Order name: EKG; Complete Time: 22:13 cp 12/20 22:12 Order name: EKG - Nurse/Tech; Complete Time: 23:15 cp 12/20 22:12 Order name: IV Saline Lock; Complete Time: : cp 12/20 22:12 Order name: Labs collected and sent; Complete Time: :26 cp 12/20 22:12 Order name: Suicide Screening (Roulette); Complete Time: 22:26 cp 12/20 23:43 Order name: Cath; Complete Time: 00:34 cp EC/26 23:17 Rate is 96 beats/min. Rhythm is regular. DE interval is normal. QRS interval is normal. cp QT interval is normal. T waves are Inverted in lead aVR. Interpreted by me. Reviewed by me. Administered Medications: 22:26 Drug: Naloxone IVP 2 mg Route: IVP; Site: left antecubital; ha1 Disposition: 12/21 00:28 Co-signature as Attending Physician, Raul Cristina DO I was immediately available on-site ms3 in the Emergency Department for consultation in the care of the patient. Disposition Summary: 12/21/22 01:15 Transfer Ordered Transfer Location: [facility] cp Reason: Higher level of care cp Condition: Stable cp Problem: new cp Symptoms: have improved cp Accepting Physician: DR Dalton Zapien(12/21/22 02:59) ha1 Diagnosis - Nontraumatic subdural hemorrhage, unspecified cp Forms: - Medication Reconciliation Form cp - SBAR form cp Signatures: Dispatcher [employer] EDMS Jhon Castle FNP-C COMPRESSION MOLDING MACHINE TENDER-Cla1 Pal Duran PA PA cp Sims, Marcus, DO DO ms3 Susan Dangelo RN RN ha1 Corrections: (The following items were deleted from the chart) 00:08 00:07 This 27 yrs old Female presents to ER via EMS with complaints of Altered Mental cp Status. cp 02:14 01:15 Doctor cp cp 02:59 02:14 DR Dalton Zapien cp ha1 12/22 02:10 12/20 22:20 Unable to obtain ROS due to altered mental status, cp cp
[2022-12-21 03:08] VITALS: BP 111/76; O2SAT 99
--- NOTE | 2022-12-21 22:16 | RAD REPORT ---
EXAM DESCRIPTION: CT - C Spine Wo Con - 12/21/2022 6:39 am CLINICAL HISTORY: 27 years, Female, PAIN COMPARISON: None. TECHNIQUE: Multiple axial CT images through the cervical spine were obtained at 2 mm slice thickness at 2 mm interval reconstruction. In addition 2-D multiplanar reformats and the sagittal coronal plan e were performed and reviewed. This exam was performed according to our departmental dose-optimization protocol, which includes auto mated exposure control, adjustment of the mA and/or kV according to patient size and/or use of iterat michaela reconstruction technique. FINDINGS: The alignment of the vertebral bodies are normal. There is no evidence of fracture or rodriguez bluxation. There are no significant degenerative changes. The spinal canal demonstrate no evidence fo r significant stenosis. Neural foramina demonstrate to be unremarkable. The uncovertebral joints demo nstrate to be normal. There is no prevertebral soft tissue swelling. Sagittal coronal reformatted i mages demonstrate no subluxation or bony abnormalities. IMPRESSION: Unremarkable CT scan of the cervical spine. No evidence for fracture/or subluxation. Electronically signed by: Terrence Wagner MD 12/21/2022 3:37 AM CDT Due to temporary technical issues with the PACS/Fluency reporting system, reports are being signed by the in house radiologists without review as a courtesy to insure prompt reporting. The interpreting radiologist is fully responsible for the content of the report.
--- NOTE | 2022-12-21 22:27 | RAD REPORT ---
EXAM DESCRIPTION: CT - Head Brain Wo Cont - 12/21/2022 6:35 am CLINICAL HISTORY: MENTAL STATUS CHANGE TECHNIQUE: Contiguous axial CT images obtained through the brain without IV contrast. Coronal and sa gittal reformatted images were provided. This exam was performed according to our departmental dose-optimization program, which includes autom ated exposure control, adjustment of the mA and/or kV according to patient size and/or use of iterati ve reconstruction technique. COMPARISON: December 04 FINDINGS: Brain: No significant white matter changes. No focal mass effect. Chacon-white matter differ entiation is within normal limits. Small hyperdensity bordering the left frontal lobe seen on axial image #21 highly suspicious for smal l subdural hematoma measuring approximately 4 mm in thickness. Less prominent hyperdensity bordering the right frontal lobe likely artifactual and related to mild m otion. Consider further evaluation with MRI. No underlying edema or mass effect. Ventricles: No ventriculomegaly or midline shift. Extra-axial spaces: No extra-axial collection or hemorrhage. Paranasal sinuses and mastoid air cells: Well-aerated Bones: Unremarkable Soft tissues: Unremarkable IMPRESSION: Small hyperdensity bordering the left frontal lobe highly suspicious for small subdural hematoma measuring approximately 4 mm in thickness. Less prominent hyperdensity bordering the right f rontal lobe likely artifactual and related to mild motion. Consider further evaluation with MRI. No u nderlying edema or mass effect. Electronically signed by: Rodri Yusuf MD 12/20/2022 11:56 PM CDT Due to temporary technical issues with the PACS/Fluency reporting system, reports are being signed by the in house radiologists without review as a courtesy to insure prompt reporting. The interpreting radiologist is fully responsible for the content of the report.
--- NOTE | 2022-12-22 07:29 | EKG ---
Test Date: 2022-12-20 Test Time: 23:12:42 Chief Hospital Administrator: LL MEASUREMENT RESULTS: Intervals: Rate: 96 MA: 168 QRSD: 98 QT: 376 QTc: 475 [place]: P: 56 MA: 168 QRS: 38 T: 45 INTERPRETIVE STATEMENTS: Normal sinus rhythm Normal ECG Compared to ECG 12/04/2022 18:18:33 Myocardial infarct finding no longer present Electronically Signed On 12-22-22 07:25:32 CDT by Josh Jack
== END 2022-12-21 02:59 | disposition short-term general hospital (02) ==
LOC: ER 22:06
DX: I62.00 Nontraumatic subdural hemorrhage, unspecified (principal)
CPT/HCPCS: 93005; 85025; 81001; 80048; 36415; 81025; 85610; 80076; 85730; 80307; 70450; 72125; 96374; 99291; 99292; J2310 ×2; G0480 ×3

== ENCOUNTER 2023-01-11 10:00 | Emergency (ER) | payer OTHER ==
--- OUTSIDE RECORDS SUMMARY | 2023-01-11 10:04 | XMS REPORT | Continuity of Care Document ---
:1995 Author Organization [facility] t Address [address] [place] [address] Care Team Providers Name Role Phone Sharptammy [...] Comments Source Alcohol intake 2016-07-07 2016-07-07 [facility] non-drinker of Medical Ce nter alcohol (finding) Sex Assigned At [birth year] [facility] 00:00:00 00:00:00 [facility] Smoking Status Start Date Stop Date Source Never smoked tobacco [facility] Medications Ordered Filled Start Stop Current Ordering Indication Dosage Frequency Signature Comments Components Source Medication Medication Date Date Medication? Clinician (SIG) Name Name LORAZEPAM 2015-07 [facility]) 20:25: [address] LEVETIRACET 2015-07 Yes [facility] (KEPPRA 2-[facility]) 20:25: [address] FLUOXETINE 2015-07 Yes Take [facility] H[facility] (PROZAC 2-[facility] OR[facility]) 20:25: [address] TRAZODONE 2015-07 Yes [facility] (TRAZODONE 20:25: Medical ORAL) [address] [place] [address] MECLIZINE 2016- Yes [facility] (MECLIZINE 20:25: Medical ORAL) [address] [place] [address] DIVALPROEX 2015- Yes Take [facility] SODIUM 2-11 [facility]. [facility] (DEPAKOTE 20:25: Medical ORAL) [address] [place] [address] LORAZEPAM 2015-07 Yes [facility] (ATIVAN [facility]) 20:25: [address] MECLIZINE 2015- Yes [facility] (MECLIZINE 20:25: Medical ORAL) [address] [place] [address] DIVALPROEX 2015- Yes Take [facility] SODIUM 2-11 [facility]. [facility] (DEPAKOTE 20:25: Medical ORAL) [address] [place] [address] LORAZEPAM 2015- Yes [facility] (ATIVAN 2-[facility]. [facility] OR[facility]) 20:25: [address] LEVETIRACET 2015- Yes Take by [facility] AM (KEPPRA 2-11 mouth. [facility] ORAL) 20:25: [address] FLUOXETINE 2015- Yes Take [facility] (PROZAC 2-11 mouth. [facility] ORAL) 20:25: [address] TRAZODONE 2015- Yes [facility] (TRAZODONE 20:25: Medical ORAL) [address] [place] [address] LEVETIRACET 2015- Yes Take [facility] (KEPPRA 2-11 mouth. [facility] ORAL) 20:25: [address] FLUOXETINE 2015- Yes Take [facility] (PROZAC 2-11 mouth. [facility] ORAL) 20:25: [address] TRAZODONE 2015- Yes [facility] (TRAZODONE 20:25: Medical ORAL) [address] [place] [address] MECLIZINE 2015- Yes Take by [facility]CL 2[facility] (MECLIZINE 20:25: Medical ORAL) [address] [place] [address] DIVALPROEX 2015- Yes Take [facility] SODIUM 2-11 mouth. [facility] (DEPAKOTE 20:25: Medical ORAL) [address] [place] [address] Procedures This patient has no known procedures. Encounters Start End Encounter Admission Attending Care Care Encounter Source Date/Time Date/Time Type Type Clinicians Facility Department ID 2022-12-24 Outpatient [facility] [id number] [place] 14:12:39 [id number] Health Results Test Description Test Time Test Comments [...] code = 22 U/L 8-55 N ALT) [id number] 19:54:00 Test Item Value Reference Range Interpretation Comments Chemistry (test code = LIP) 32 U/L 8-78 N Chemistry - [id number] 19:47:00 Test Item Value Reference Range Interpretation Comments Chemistry - Lactate (test code = 0.7 mmol/L 0.5-2.2 N LACTSEP-T) Chemistry - [id number] 19:44:00 Test Item Value Reference Range Interpretation Comments Chemistry - Specials POSITIVE NEGATIVE A Method of sensitivity- (test code = BHCGST) Indeter minant: results should be repea rosario after 48-72 hrs Positive: resul ts may be detected as early as 1 day after the first missed me nses. [id number] 19:35:00 Test Item Value Reference Range Interpretation [...] code = BASO#) 0.1 thou/uL 0.0-0.2 N [id number] 21:29:00 Test Item Value Reference Range Interpretation [...] code = BASO#) 0.1 thou/uL 0.0-0.2 N [id number] 20:50:00 Test Item Value Reference Range Interpretation Comments Accuchek (test code = ACU) 90 mg/dL 70-110 N Notes Date/Time Note Provider Source 2017-12-17 21:03:00-00:00 [facility] Name: PETEY OBANDO CHAYO SANTILLAN [facility] [address] : 1995, Age: 22, Sex: JUAN ANTONIO Fernández [id number] Unit #: [id number], Status: REG [facility] [phone] Location: D/OP Report Dict Dr.: CHAYO EVANS MD Admission Date: Report #: [id number] Discharge Date: CC: Labor and Delivery H P Labor and Delivery H P Chief complaint: decreased movement HPI: 22 y/o at 30w2d, pat ient of Dr. Cedeno at [facility] in [place], presents with decreased FM and fever. She describes a headache since yesterday and fever up to 102.6 at home. Denies VB, abd pain, LOF, UTI sx, back pain, N/V/d. ROS neg for HEENT, cv, pulm, gi, gu, neuro, psych, skin, musculoskeletal or constitutional sx other than mentioned above. OB History Details: 1 prior ELTCS at 36 weeks at [place]. Baby at 7 months due to a [...] by Chayo Evans MD> [id number] 2016-04-22 02:03:00-00:00 [facility] Name: TOPHERPETEY KYLE [facility] [address] : 1995, Age: 20, Sex: JUAN ANTONIO Fernández [id number] Unit #: [id number], Status: DIS IN [phone] Location: [address] [place] [address] Report Dict DrGlen: AYAZ COLE DO Admission Date: 04/19/16 Report #: [id number] Discharge Date: 04/20/16 CC: Rekha Blandon MD, KYLE C DO McClellan, David MD Perrone, Janelle MD DISCHARGE SUMMARY REPORT DATE OF ADMISSION: 04/19/2016 DATE OF DISCHARGE: 04/20/2016 RESIDENT: Ayaz Cole D.O. ADMITTING PHYSICIAN: Rekha Blandon, M.D. DISCHARGE ATTENDING: Rekha Blandon M.D. CONSULT: [...] bathroom after urinating when standing up w hilsebastián in [facility]. She has had multiple episodes similar to this over the last several d ays to weeks and has a history of seizure disorder that has been being treated. She has in the proc ess of having workup with Dr. Allen with Neurology as well as [employer], and she also h as psychiatrist that [...] this needs to be followed up outp atient of course. We advised patient to not [...] Psychiatrist as well as her Neurologist outp atient and given that she was at her Keppra dose changed and now was symptom free [facility], she was discharged to the care for [...] 08/16/17 1145 Dictated Date/Time: 04/21/161914 Transcribed Date/Time: 04/22/16 0202 House Wirer Helper: ROSA
[2023-01-11 10:31] LABS: Specific Gravity 1.027 (1.005-1.030)
[2023-01-11 10:39] LABS: Hematocrit 34.8 % (36.0-45.0); Lymphocytes % 34.9 % (15.3-44.8); MCV 81.7 fL (80-100); MPV 7.2 fL (7.6-11.3); RBC Red Blood Cell Count 4.26 M/uL (3.86-4.86)
[2023-01-11 10:40] LABS: Specific Gravity 1.027 (1.005-1.030); Urine Bacteria None Seen /HPF (<20); Urine Bilirubin NEGATIVE (Negative); Urine Blood Negative (Negative); Urine Clarity Extremely Turbid (Clear); Urine Color Light-Yellow (Yellow); Urine Glucose NEGATIVE (Negative); Urine Mucus Slight /HPF (None Seen); Urine Protein TRACE (Negative); Urine RBC <5 /HPF (None Seen); Urine Urobilinogen Normal (Normal); Urine pH 5.5 (5.0-7.0)
[2023-01-11 10:49] LABS: BUN Blood Urea Nitrogen 11 mg/dL (7-18); Bicarbonate 26 mEq/L (21-32); Glomerular Filtration Rate 126 ml/min (=/>90); Glucose Level 112 mg/dL (74-106); Sodium Level 137 mEq/L (136-145)
[2023-01-11 10:50] LABS: HCG, Quantitative < 1 mIU/mL (1-3)
--- NOTE | 2023-01-11 11:53 | RAD REPORT ---
EXAM DESCRIPTION: US - Transvaginal OB - 01/11/2023 11:37 am CLINICAL HISTORY: Abd pain;Abd cramping, COMPARISON: No comparisons FINDINGS: A normal gestational sac is not seen in the uterus. Endometrium is thickened with fluid pr esent. Endometrium measures up to 9 mm. Again, a normal-appearing gestational sac or IUP is not seen. The maternal adnexa and ovaries are within normal limits. Normal Doppler blood flow was demonstrated to both ovaries. IMPRESSION: Thickening of the endometrial stripe is seen with mild fluid. A normal appearing gestati onal sac or IUP is not seen. In the setting of a positive HCG level, this would be of unknown location. Serial HCG level measurements and follow-up pelvic sonogram in 7-10 days would be recommended.
--- NOTE | 2023-01-11 12:05 | ER ---
Nurse's Notes [facility] Name: Corrie Hartman Age: 27 yrs Sex: Female : 1995 Arrival Date: 01/11/2023 Time: 10:00 Bed 6 Private MD: Diagnosis: Lower abdominal pain, unspecified Presentation: 01/11 10:15 Chief complaint: Patient states: LLQ ABD pain for a couple of days, stated + vg1 test yesterday with 'white d/c' denies N/V/D. Coronavirus screen: Vaccine status: Patient reports being unvaccinated. Client denies travel out of the [place] in the last 14 days. Ebola Screen: Patient negative for fever greater than or equal to 101.5 degrees Fahrenheit, and additional compatible Ebola Virus Disease symptoms Patient denies exposure to infectious person. Patient denies travel to an Ebola-affected area in the 21 days before illness onset. Initial Sepsis Screen: Does the patient meet any 2 criteria? HR > 90 bpm. Does the patient have a suspected source of infection? No. Patient's initial sepsis screen is negative. Risk Assessment: Do you want to hurt yourself or someone else? Patient reports no desire to harm self or others. Onset of symptoms was January 09, 2023. 10:15 Method Of Arrival: Ambulatory vg1 10:15 Acuity: MARKO 3 vg1 Triage Assessment: 10:17 General: Appears uncomfortable, obese, unkempt, Behavior is cooperative. Pain: vg1 Complains of pain in left lower quadrant Pain currently is 6 out of 10 on a pain scale. Pain began 2-3 days ago. Neuro: Level of Consciousness is awake, alert, obeys commands, Oriented to person, place, time, situation. GI: Abdomen is round obese, Abdomen is tender to palpation in left upper quadrant and left lower quadrant Patient currently denies diarrhea, nausea, vomiting. : No signs and/or symptoms were reported regarding the genitourinary system. 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 - Social history:: Smoking status: Reported history of juuling and/or vaping. - Family history:: not pertinent. - Hospitalizations: : No recent hospitalization is reported. Screenin:[facility] ED Fall Risk Assessment (Adult) History of falling in the last 3 months, vg1 including since admission No falls in past 3 months (0 pts). Abuse screen: Denies threats or abuse. Denies injuries from another. Nutritional screening: No deficits noted. Tuberculosis screening: No symptoms or risk factors identified. Assessment: 10:21 Reassessment: SEE TRIAGE. vg1 10:25 GI: Abdomen is obese, Abd is soft and non tender. ml4 10:26 Respiratory: Respiratory effort is even, unlabored. GI:. ml4 11:16 Reassessment: pt transported to US via wheelchair. vg1 11:57 Reassessment: Patient appears in no apparent distress at this time. No changes from vg1 previously documented assessment. Patient and/or family updated on plan of care and expected duration. Pain level reassessed. Patient is alert, oriented x 3, equal unlabored respirations, skin warm/dry/pink. Vital Signs: 10:15 BP 169 / 99; Pulse 92; Resp 16; Pulse Ox 100% ; Weight 158.76 kg; Height 5 ft. 4 in. ; vg1 Pain 6/10; 11:57 BP 124 / 92; Pulse 79; Resp 18; Pulse Ox 99% on R/A; vg1 10:15 Body Mass Index 60.08 (158.76 kg, 162.56 cm) vg1 10:15 Pain Scale: Adult vg1 ED Course: 10:01 Patient arrived in ED. ts1 10:03 Zacarias Hendricks MD is Attending Physician. rn 10:04 AMY HanleyIII, Gary, AMY is Primary Nurse. ml4 10:17 Triage completed. vg1 10:17 Arm band placed on. vg1 10:19 Inserted saline lock: 20 gauge in left forearm, using aseptic technique. ml4 10:21 Patient has correct armband on for positive identification. Placed in gown. Bed in low vg1 position. Call light in reach. Side rails up X 1. Adult w/ patient. 10:25 No provider procedures requiring assistance completed. ml4 10:39 No apparent distress. Awaiting: US. ml4 11:39 US Transvaginal Ob In Process Unspecified. EDMS 12:34 IV discontinued, intact, bleeding controlled, No redness/swelling at site. Pressure vg1 dressing applied. Administered Medications: No medications were administered Medication: 10:21 VIS not applicable for this client. vg1 Outcome: 12:04 Discharge ordered by . rn 12:34 Discharged to home ambulatory, with family. vg1 12:34 Condition: good 12:34 Discharge instructions given to patient, family, Instructed on discharge instructions, follow up and referral plans. Demonstrated understanding of instructions, follow-up care. 12:35 Patient left the ED. vg1 Signatures: Dispatcher [employer] EDMS Zacarias Hendricks MD MD rn Garcia, Victoria RN RN vg1 Lana Bustos, JIMBO PAS ts1 Talon, RNIII, Gary, RN RN ml4
--- NOTE | 2023-01-11 12:05 | EDPHYS ---
Physician Documentation [facility] Name: Corrie Hartman Age: 27 yrs Sex: Female : 1995 Arrival Date: 01/11/2023 Time: 10:00 Bed 6 Private MD: ED Physician Zacarias Hendricks HPI: 01/11 12:00 This 27 yrs old Female presents to ER via Ambulatory with complaints of Abdominal Pain. rn 12:00 The patient presents with abdominal pain in the left lower quadrant. Onset: The rn symptoms/episode began/occurred yesterday. The symptoms do not radiate. Associated signs and symptoms: Pertinent negatives: nausea and vomiting, blood in stools, chest pain, constipation, diarrhea, dysuria, fever, hematuria, vomiting, vomiting blood. The symptoms are described as crampy. Modifying factors: The symptoms are alleviated by nothing, the symptoms are aggravated by nothing. Severity of pain: At its worst the pain was mild in the emergency department the pain is unchanged. The patient has not experienced similar symptoms in the past. The patient has not recently seen a physician. Pt reports LLQ abd pain, began yesterday, took test yesterday and was faintly positive. LMP 1 month ago. No fever. No vomiting. No urinary symptoms. No diarrhea or intestinal problems. . 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 - Social history:: Smoking status: Reported history of juuling and/or vaping. - Family history:: not pertinent. - Hospitalizations: : No recent hospitalization is reported. ROS: 12:00 Constitutional: Negative for fever, chills, and weight loss, Cardiovascular: Negative rn for chest pain, palpitations, and edema, Respiratory: Negative for shortness of breath, cough, wheezing, and pleuritic chest pain, Abdomen/GI: + abd pain Back: Negative for injury and pain, : Negative for injury, bleeding, discharge, and swelling, MS/Extremity: Negative for injury and deformity, Skin: Negative for injury, rash, and discoloration, Neuro: Negative for headache, weakness, numbness, tingling, and seizure. Exam: 12:00 Constitutional: This is a well developed, well nourished patient who is awake, alert, rn and in no acute distress. Cardiovascular: Regular rate and rhythm. No pulse deficits. Respiratory: No increased work of breathing, no retractions or nasal flaring. Abdomen/GI: soft, mild LLQ and suprapubic tenderness, no rebound, no peritoneal signs, no distension Vital Signs: 10:15 BP 169 / 99; Pulse 92; Resp 16; Pulse Ox 100% ; Weight 158.76 kg; Height 5 ft. 4 in. ; vg1 Pain 6/10; 11:57 BP 124 / 92; Pulse 79; Resp 18; Pulse Ox 99% on R/A; vg1 10:15 Body Mass Index 60.08 (158.76 kg, 162.56 cm) vg1 10:15 Pain Scale: Adult vg1 MDM: 10:03 Patient medically screened. rn 12:00 Differential diagnosis: Ectopic , Endometriosis, non-specific abd pain, rn Ovarian Torsion, Tubal Ovarian Abcess, urinary tract infection. 12:03 Data reviewed: vital signs, nurses notes, lab test result(s), radiologic studies, rn ultrasound, and as a result, I will discharge patient. Counseling: I had a detailed discussion with the patient and/or guardian regarding: the historical points, exam findings, and any diagnostic results supporting the discharge/admit diagnosis, lab results, radiology results, the need for outpatient follow up, to return to the emergency department if symptoms worsen or persist or if there are any questions or concerns that arise at home. Special discussion: Based on the patient's Hx, exam, and Dx evaluation, there is no indication for emergent surgery or inpatient Tx. It is understood by the patient/guardian that if the Sx's persist or worsen they need to return immediately for re-evaluation. I discussed with the patient/guardian in detail that at this point there is no indication for admission to the hospital. It is understood, however, that if the symptoms persist or worsen the patient needs to return immediately for re-evaluation. ED course: NO acute findings in u/s, good ovarian flow, appearance of possible either early vs miscarriage. UPT neg and HCG < 1, updated patient and return precautions given/understood. . 01/11 10: Order name: Abo/rh Typing; Complete Time: : rn 01/11 10: Order name: Basic Metabolic Panel; Complete Time: : rn 01/11 10: Order name: CBC with Diff; Complete Time: : rn 01/11 10: Order name: Test, Urine; Complete Time: : rn 01/11 10: Order name: Quantitative Hcg; Complete Time: : rn 01/11 10: Order name: Urinalysis w/ reflexes; Complete Time: : rn 01/11 10: Order name: US Transvaginal Ob; Complete Time: 11: rn 01/11 10: Order name: IV Saline Lock; Complete Time: 10: rn 01/11 10: Order name: Labs collected and sent; Complete Time: : rn 01/11 10: Order name: NPO; Complete Time: 10:21 rn Administered Medications: No medications were administered Disposition Summary: 01/11/23 12:04 Discharge Ordered Location: Home rn Problem: new rn Symptoms: have improved rn Condition: Stable rn Diagnosis - Lower abdominal pain, unspecified rn Followup: rn - With: Private Physician - When: As needed - Reason: Recheck today's complaints, Re-evaluation by your physician Discharge Instructions: - Discharge Summary Sheet rn - Abdominal Pain, Adult rn - Pain Without a Known Cause rn Forms: - Medication Reconciliation Form rn - Thank You Letter rn - Antibiotic technology risk intern - Prescription Opioid Use rn Signatures: Dispatcher [employer] Zacarias Mauricio MD MD rn Garcia, Victoria RN RN vg1 Corrections: (The following items were deleted from the chart) 12:04 12:00 Differential diagnosis: Ectopic , Endometriosis, non-specific abd pain, rn rn
[2023-01-11 12:56] VITALS: BP 124/92; O2SAT 99
== END 2023-01-11 12:35 | disposition home or self-care (01) ==
LOC: ER 10:00
DX: R10.32 Left lower quadrant pain (principal); F32.A Depression, unspecified; F41.9 Anxiety disorder, unspecified
CPT/HCPCS: 36415; 76817; 80048; 81001; 81025; 84702; 85025; 86900; 86901; 99283

== ENCOUNTER 2023-02-23 10:44 | Emergency (ER) | payer OTHER ==
[2023-02-23] MEDS ORDERED: dexAMETHasone 10 MG/ML VIAL ONE (11:14)
--- NOTE | 2023-02-23 12:00 | EDPHYS ---
Physician Documentation [facility] Name: Corrie Hartman Age: 27 yrs Sex: Female : 1995 Arrival Date: 02/23/2023 Time: 10:44 Bed 11 Private MD: ED Physician Raul Cristina HPI: 02/23 11:34 This 27 yrs old Female presents to ER via Ambulatory with complaints of Sore Throat. kb 11:34 The patient presents with sore throat. The patient describes throat pain as constant. kb Onset: The symptoms/episode began/occurred yesterday. Severity of symptoms: At their worst the symptoms were moderate, in the emergency department the symptoms are unchanged. Modifying factors: The symptoms are alleviated by nothing, the symptoms are aggravated by swallowing, Patient's oral intake status: good. Associated signs and symptoms: Pertinent positives: Sore throat Pertinent negatives fever, flu-like symptoms. The patient has not experienced similar symptoms in the past. The patient has not recently seen a physician. Historical: - Allergies: 10:54 No Known Allergies; hb - Home Meds: 10:54 Clonazepam Oral [Active]; Fluoxetine Oral [Active]; Keppra Oral [Active]; Trazodone hb Oral [Active]; - PMHx: 10:54 Anxiety; Bipolar disorder; depressive disorder; Seizure; hb - PSHx: 10:54 section; hb - Immunization history:: Adult Immunizations up to date. - Social history:: Smoking status: Reported history of juuling and/or vaping. ROS: 11:34 Constitutional: Negative for fever, chills, and weight loss. kb 11:34 ENT: Positive for sore throat. 11:34 All other systems are negative. Exam: 11:34 Constitutional: This is a well developed, well nourished patient who is awake, alert, kb and in no acute distress. Head/Face: Normocephalic, atraumatic. Cardiovascular: Regular rate and rhythm with a normal S1 and S2. No gallops, murmurs, or rubs. No pulse deficits. Respiratory: Respirations even and unlabored. No increased work of breathing. Talking in full sentences Skin: Warm, dry with normal turgor. Normal color. MS/ Extremity: Pulses equal, no cyanosis. Neurovascular intact. Full, normal range of motion. Neuro: Awake and alert, GCS 15, oriented to person, place, time, and situation. Moves all extremities. Normal gait. 11:34 ENT: Posterior pharynx: Airway: normal, patent, Tonsils: bilaterally enlarged, with erythema, Uvula: normal, midline, swelling, that is moderate, erythema, that is mild, exudate, is not appreciated. Vital Signs: 10:54 BP 142 / 93; Pulse 98; Resp 18; Temp 98.9(O); Pulse Ox 100% on R/A; Weight 154.22 kg; hb Height 5 ft. 4 in. ; Pain 7/10; 10:54 Body Mass Index 58.36 (154.22 kg, 162.56 cm) hb 10:54 Pain Scale: Adult hb MDM: 10:48 Patient medically screened. kb 11:59 Differential diagnosis: strep, tonsillitis, pharyngitis. Data reviewed: vital signs, kb nurses notes. Counseling: I had a detailed discussion with the patient and/or guardian regarding: the historical points, exam findings, and any diagnostic results supporting the discharge/admit diagnosis, lab results, the need for outpatient follow up, a family practitioner, to return to the emergency department if symptoms worsen or persist or if there are any questions or concerns that arise at home. 02/23 10:51 Order name: Strep; Complete Time: 11:59 kb Administered Medications: 11:11 Drug: Dexamethasone IM 10 mg Route: IM; Site: right deltoid; hb 12:22 Follow up: Response: No adverse reaction hb 12:22 Drug: Amoxicillin-Clavulanate PO 875 mg Route: PO; hb 12:22 Follow up: Response: No adverse reaction hb Disposition: 13:39 Co-signature as Attending Physician, Raul DESHPANDE was immediately available on-site ms3 in the Emergency Department for consultation in the care of the patient. Disposition Summary: 02/23/23 12:00 Discharge Ordered Location: Home kb Condition: Stable kb Diagnosis - Streptococcal pharyngitis kb Followup: kb - With: Emergency Department - When: As needed - Reason: Worsening of condition Followup: kb - With: Private Physician - When: 2 - 3 days - Reason: Recheck today's complaints, Continuance of care, Re-evaluation by your physician Discharge Instructions: - Discharge Summary Sheet kb - Strep Throat, Adult, [id number] kb Forms: - Medication Reconciliation Form kb - Thank You Letter kb - Antibiotic Education kb - Prescription Opioid Use kb - Patient Portal Instructions kb Prescriptions: - Augmentin 875-125 mg Oral Tablet - take 1 tablet by ORAL route every 12 hours for 10 days; 20 tablet; Refills: 0, kb Product Selection Permitted Signatures: Dispatcher [employer] Sonya Nance, KARISHMAC Corrie Urbina, RN RN Raul Stallworth, DO ms3
--- NOTE | 2023-02-23 12:00 | ER ---
Nurse's Notes [facility] Name: Corrie Hartman Age: 27 yrs Sex: Female : 1995 Arrival Date: 02/23/2023 Time: 10:44 Bed 11 Private MD: Diagnosis: Streptococcal pharyngitis Presentation: 02/23 10:54 Chief complaint: Sore throat x 2 days. Coronavirus screen: At this time, the client hb does not indicate any symptoms associated with coronavirus-19. Ebola Screen: No symptoms or risks identified at this time. Initial Sepsis Screen: Does the patient meet any 2 criteria? No. Patient's initial sepsis screen is negative. Does the patient have a suspected source of infection? No. Patient's initial sepsis screen is negative. Risk Assessment: Do you want to hurt yourself or someone else? Patient reports no desire to harm self or others. Onset of symptoms was February 22, 2023. 10:54 Method Of Arrival: Ambulatory hb 10:54 Acuity: MARKO 4 hb Historical: - Allergies: 10:54 No Known Allergies; hb - Home Meds: 10:54 Clonazepam Oral [Active]; Fluoxetine Oral [Active]; Keppra Oral [Active]; Trazodone hb Oral [Active]; - PMHx: 10:54 Anxiety; Bipolar disorder; depressive disorder; Seizure; hb - PSHx: 10:54 section; hb - Immunization history:: Adult Immunizations up to date. - Social history:: Smoking status: Reported history of juuling and/or vaping. Screenin:25 [facility] ED Fall Risk Assessment (Adult) Score/Fall Risk Level 0 - 2 = Low Risk hb Oriented to surroundings, Maintained a safe environment. Abuse screen: Denies threats or abuse. Denies injuries from another. Nutritional screening: No deficits noted. Tuberculosis screening: No symptoms or risk factors identified. Assessment: 11:00 General: Appears in no apparent distress. Behavior is calm, cooperative. Pain: Pain hb currently is 7 out of 10 on a pain scale. Neuro: Level of Consciousness is awake, alert, obeys commands, Oriented to person, place, time, situation. Cardiovascular: Patient's skin is warm and dry. Respiratory: Respiratory effort is even, unlabored, Respiratory pattern is regular, symmetrical. Vital Signs: 10:54 BP 142 / 93; Pulse 98; Resp 18; Temp 98.9(O); Pulse Ox 100% on R/A; Weight 154.22 kg; hb Height 5 ft. 4 in. ; Pain 7/10; 10:54 Body Mass Index 58.36 (154.22 kg, 162.56 cm) hb 10:54 Pain Scale: Adult hb ED Course: 10:46 Patient arrived in ED. ts1 10:48 [facility]C [facility] kb 10:48 Raul Cristina DO is Attending Physician. kb 10:53 Corrie Perkins, RN is Primary Nurse. hb 10:54 Triage completed. hb 10:56 Arm band placed on. hb 11:11 Strep Sent. hb 12:25 Patient has correct armband on for positive identification. Provided Education on: . hb 12:25 No provider procedures requiring assistance completed. Patient did not have IV access hb during this emergency room visit. Administered Medications: 11:11 Drug: Dexamethasone IM 10 mg Route: IM; Site: right deltoid; hb 12:22 Follow up: Response: No adverse reaction hb 12:22 Drug: Amoxicillin-Clavulanate PO 875 mg Route: PO; hb 12:22 Follow up: Response: No adverse reaction hb Medication: 12:26 VIS not applicable for this client. hb Outcome: 12:00 Discharge ordered by . kb 12:25 Discharged to home ambulatory. hb 12:25 Condition: stable 12:25 Discharge instructions given to patient, Instructed on discharge instructions, follow up and referral plans. medication usage, Demonstrated understanding of instructions, follow-up care, medications, Prescriptions given X 1. 12:26 Patient left the ED. hb Signatures: Sonya Davies FNP-C FNP-CkCorrie Ohara, RN RN hb Lana Bustos PAS PAS ts1
[2023-02-23] MEDS ORDERED: AMOX/K CLAV 875 MG TAB ONE (12:28)
[2023-02-23 12:30] VITALS: BP 142/93; TEMP 98.9; O2SAT 100
== END 2023-02-23 12:26 | disposition home or self-care (01) ==
LOC: ER 10:44
DX: J02.0 Streptococcal pharyngitis (principal)
CPT/HCPCS: 87081; J1100; 96372; 99284

== ENCOUNTER 2023-03-13 09:09 | Emergency (ER) | payer OTHER ==
--- OUTSIDE RECORDS SUMMARY | 2023-03-13 09:15 | XMS REPORT | Continuity of Care Document ---
:1995 Author Organization [facility] t Address [address] [place] [address] Care Team Providers Name Role Phone Sharpless [...] Comments Source Alcohol intake 2016-07-07 2016-07-07 [facility] non-drinker of Medical Ce nter alcohol (finding) Sex Ass[birth year] [facility] 00:00:00 00:00:[address] [facility] Smoking Status Start Date Stop Date Source Never smoked tobacco [facility] Medications Ordered Filled Start Stop Current Ordering Indication Dosage Frequency Signature Comments Components Source Medication Medication Date Date Medication? Clinician (SIG) Name Name LORAZEPAM 2015-07 [facility]) 20:25: [address] LEVETIRACET 2015-07 Yes [facility] (KEPPRA 2-[facility] ORAL) 20:25: [address] FLUOXETINE 2015-07 Yes Take [facility] (PROZAC 2-[facility] ORAL) 20:25: [address] TRAZODONE 2015-07 Yes [facility] (TRAZODONE 20:25: Medical ORAL) [address] MECLIZINE 2016- Yes [facility] (MECLIZINE 20:25: Medical ORAL) [address] [place] [address] DIVALPROEX 2016- Yes Take [facility] SODIUM 2-11 [facility] (DEPAKOTE 20:25: Medical ORAL) [address] [place] [address] LORAZEPAM 2015- Yes [facility] (ATIVAN 2[facility] OR[facility]) 20:25: [address] LEVETIRACET 2015- Yes Take [facility] (KEPPRA 2-11 [facility] ORAL) 20:25: [address] FLUOXETINE 2015- Yes Take [facility] (PROZAC 2-11 [facility]. [facility] ORAL) 20:25: [address] TRAZODONE 2016- Yes [facility] (TRAZODONE 20:25: Medical ORAL) [address] [place] [address] MECLIZINE 2015- Yes [facility] (MECLIZINE 20:25: Medical ORAL) [address] [place] [address] DIVALPROEX 2015- Yes Take [facility] SODIUM 2-11 [facility]. [facility] (DEPAKOTE 20:25: Medical ORAL) [address] [place] [address] LORAZEPAM 2015- Yes [facility] (ATIVAN 2-[facility] ORAL) 20:25: [address] LEVETIRACET 2015- Yes Take [facility] (KEPPRA 2-11 [facility]. [facility] ORAL) 20:25: [address] FLUOXETINE 2015- Yes Take [facility] (PROZAC 2-11 [facility]. [facility] ORAL) 20:25: [address] TRAZODONE 2015- Yes [facility] (TRAZODONE 20:25: Medical ORAL) [address] [place] [address] MECLIZINE 2015- Yes [facility]CL [facility] (MECLIZINE 20:25: Medical ORAL) [address] [place] [address] DIVALPROEX 2015- Yes Take [facility] SODIUM 2-11 [facility]. [facility] (DEPAKOTE 20:25: Medical ORAL) [address] [place] [address] LORAZEPAM 2016- Yes [facility] (ATIVAN 2-[facility] ORAL) 20:25: [address] MECLIZINE 2015-07 Yes [facility] (MECLIZINE 20:25: Medical ORAL) [address] [place] DIVALPROEX 2015-[address] [facility] SODIUM 2-11 [facility]. [facility] (DEPAKOTE 20:25: Medical ORAL) [address] [place] LORAZEPAM 2015-07 Yes [facility] (ATIVAN 2-[facility] ORAL) 20:25: [address] LEVETIRACET 2015-07 Yes [facility] (KEPPRA 2-11 mouth. [facility] ORAL) 20:25: Medical [address] [place] [address] FLUOXETINE 2015-07 Yes Take [facility] (PROZAC 2-11 mouth. [facility] ORAL) 20:25: [address] TRAZODONE 2015-07 Yes [facility] (TRAZODONE 20:25: Medical ORAL) [address] [place] [address] LEVETIRACET 2015-07 Yes Take [facility] (KEPPRA 2-11 mouth. [facility] ORAL) 20:25: [address] FLUOXETINE 2015-07 Yes Take [facility] (PROZAC 2-11 mouth. [facility] ORAL) 20:25: [address] TRAZODONE 2015-07 Yes [facility] (TRAZODONE 20:25: Medical ORAL) [address] [place] [address] MECLIZINE 2015-07 Yes [facility] (MECLIZINE 20:25: Medical ORAL) [address] [place] [address] DIVALPROEX 2015-[address] [facility] SODIUM 2-11 mouth. [facility] (DEPAKOTE 20:25: Medical ORAL) [address] [place] [address] Procedures This patient has no known procedures. Encounters Start End Encounter Admission Attending Care Care Encounter Source Date/Time Date/Time Type Type Clinicians Facility Department ID 2022-12-24 Outpatient [facility] [id number] PR 14:12:39 [id number] Health Results Test Description Test Time Test [...] code = 22 U/L 8-55 N ALT) [id number] 19:54:00 Test Item Value Reference Range Interpretation Comments Chemistry (test code = LIP) 32 U/L 8-78 N Chemistry - [id number] 19:47:00 Test Item Value Reference Range Interpretation Comments Chemistry - Lactate (test code = 0.7 mmol/L 0.5-2.2 N LACTSEP-T) Chemistry - [id number] 19:44:00 Test Item Value Reference Range Interpretation Comments Chemistry - Specials POSITIVE NEGATIVE A Method of sensitivity- (test code = BHCGST) Jessicaalice figueroanickolas: results should be repea rosario after 48-72 hrs Positive: resul ts may be detected as early as 1 day after the first missed me nses. [id number] 19:35:00 Test Item Value Reference Range Interpretation [...] code = BASO#) 0.1 thou/uL 0.0-0.2 N [id number] 21:29:00 Test Item Value Reference Range Interpretation [...] code = BASO#) 0.1 thou/uL 0.0-0.2 N [id number] 20:50:00 Test Item Value Reference Range Interpretation Comments Accuchek (test code = ACU) 90 mg/dL 70-110 N Notes Date/Time Note Provider Source 2017-12-17 21:03:00-00:00 [facility] er Name: PETEY OBANDO CAITLYN CHAYO EVANS [facility] [address] : 1995, Age: 22, Sex: JUAN ANTONIO Fernández [id number] Unit #: [id number], Status: [place] [facility] [place] [phone] Location: L D/OP Report Dict DrGlen: CHAYO EVANS MD Admission Date: Report #: [id number] Discharge Date: CC: Labor and Delivery H P Labor and Delivery H P Chief complaint: decreased movement HPI: 22 y/o at 30w2d, pat ient of Dr. Cedeno at [facility] in [place], presents with decreased FM and fever. She describes a headache since yesterday and fever up to 102.6 at home. Denies VB, abd pain, LOF, UTI sx, back pain, N/V/d. ROS neg for HEENT, cv, pulm, gi, gu, neuro, psych, skin, musculoskeletal or constitutional sx other than mentioned above. OB History Details: 1 prior ELTCS at 36 weeks at [place]. Baby at 7 months due to a [...] by Chayo Evans MD> [id number] 2016-04-22 02:03:00-00:00 [facility] Name: TOPHERAYAZ PEREZ [facility] [address] : 1995, Age: 20, Sex: JUAN ANTONIO Fernández [id number] Unit #: [id number], Status: DIS IN [phone] Location: [address] [place] [address] AYAZ VILLEGAS DO Admission Date: 04/19/16 Report #: [id number] Discharge Date: 04/20/16 CC: Rekha Blandon MD, KYLE C DO McClellan, David MD Perrone, Janelle MD DISCHARGE SUMMARY REPORT DATE OF ADMISSION: 04/19/2016 DATE OF DISCHARGE: 04/20/2016 RESIDENT: Ayaz Villegas D.O. ADMITTING PHYSICIAN: Rekha Blandon M.D. DISCHARGE [...] the bathroom after urinating when standing up itzel joshi in [facility]. She has had multiple episodes similar to this over the last several d ays to weeks and has a history of seizure disorder that has been being treated. She has in the proc ess of having workup with Dr. Allen with Neurology as well as [facility], and she also h as psychiatrist that [...] now was symptom free while in the [facility], she was discharged to the care for [...] accordance with plan. <Electronically signed by Ayaz Villegas DO> D ate/Time: 04/23/16 0644 <Electronically signed by Chayo Zuñiga DO> Amarjit e/Time: 08/16/17 1145 Dictated Date/Time: 04/21/165 Transcribed Date/Time: 04/22/16 0202 Cash Applications Associate: ROSA
--- NOTE | 2023-03-13 09:40 | ER ---
Nurse's Notes [facility] Name: Corrie Hartman Age: 27 yrs Sex: Female : 1995 Arrival Date: 03/13/2023 Time: 09:09 Bed 11 Private MD: Diagnosis: Dental caries, unspecified Presentation: 03/13 09:21 Chief complaint: Patient states: LEFT TOOTH PAIN SINCE Y/D. Coronavirus screen: At this bp time, the client does not indicate any symptoms associated with coronavirus-19. Ebola Screen: No symptoms or risks identified at this time. Initial Sepsis Screen: Does the patient meet any 2 criteria? No. Patient's initial sepsis screen is negative. Does the patient have a suspected source of infection? No. Patient's initial sepsis screen is negative. Risk Assessment: Do you want to hurt yourself or someone else? Patient reports no desire to harm self or others. Onset of symptoms is unknown. 09:21 Method Of Arrival: Ambulatory bp 09:21 Acuity: MARKO 5 bp Historical: - Home Meds: 09:21 Clonazepam Oral [Active]; Trazodone Oral [Active]; Fluoxetine Oral [Active]; Keppra bp Oral [Active]; - PMHx: 09:21 Anxiety; Bipolar disorder; depressive disorder; Seizure; bp - PSHx: 09:21 section; bp - Immunization history:: Adult Immunizations up to date. - Social history:: Smoking status: unknown. Screenin:36 [facility] ED Fall Risk Assessment (Adult) History of falling in the last 3 months, vg1 including since admission No falls in past 3 months (0 pts). Abuse screen: Denies threats or abuse. Denies injuries from another. Nutritional screening: No deficits noted. Tuberculosis screening: No symptoms or risk factors identified. Assessment: 09:36 General: Appears in no apparent distress. uncomfortable. Pain: Complains of pain in vg1 mouth Pain currently is 10 out of 10 on a pain scale. Pain began 1 day ago. Respiratory: Airway is patent Respiratory effort is even, unlabored. EENT: Oral mucosa is moist. Vital Signs: 09:21 BP 128 / 84; Pulse 84; Resp 16; Temp 98; Pulse Ox 96% ; bp 09:39 Weight 153.77 kg; Height 5 ft. 4 in. ; Pain 10/10; vg1 09:39 Body Mass Index 58.19 (153.77 kg, 162.56 cm) vg1 09:39 Pain Scale: Adult vg1 ED Course: 09:12 Patient arrived in ED. ts1 09:21 Triage completed. bp 09:26 Rosi Daniels PA-C is PHCP. sb4 09:26 Pal Smith MD is Attending Physician. sb4 09:36 Marina Barber, RN is Primary Nurse. vg1 09:36 Patient has correct armband on for positive identification. vg1 09:36 No provider procedures requiring assistance completed. Patient did not have IV access vg1 during this emergency room visit. 09:39 Arm band placed on. vg1 Administered Medications: 09:48 Drug: Hydrocodone-Acetaminophen PO (7.5 mg-325 mg) 1 tabs Route: PO; vg1 09:48 Follow up: Response: Medication administered at discharge. vg1 09:48 Drug: Acetaminophen PO 650 mg Route: PO; vg1 09:48 Follow up: Response: Medication administered at discharge. vg1 09:48 Drug: Clindamycin PO 300 mg Route: PO; vg1 09:48 Follow up: Response: Medication administered at discharge. vg1 Medication: 09:36 VIS not applicable for this client. vg1 Outcome: 09:39 Discharge ordered by . sb4 09:49 Discharged to home ambulatory, with friend. vg1 09:49 Condition: good 09:49 Discharge instructions given to patient, Instructed on discharge instructions, follow up and referral plans. medication usage, Demonstrated understanding of instructions, follow-up care, medications, Prescriptions given X 2. 09:49 Patient left the ED. vg1 Signatures: Grey Sheridan RN RN bp Marina Barber, RN RN vg1 Rosi Daniels PA-C PA-C sb4 Lana Bustos PAS PAS ts1
--- NOTE | 2023-03-13 09:40 | EDPHYS ---
Physician Documentation [facility] Name: Corrie Hartman Age: 27 yrs Sex: Female : 1995 Arrival Date: 03/13/2023 Time: 09:09 Bed 11 Private MD: ED Physician Pal Smith HPI: 03/13 10:00 This 27 yrs old Female presents to ER via Ambulatory with complaints of Mouth Problem. sb4 10:00 The patient presents with pain. The problem is located in the upper left lateral sb4 incisor. Onset: The symptoms/episode began/occurred yesterday, and became worse this morning. Duration: The symptoms are continuous. Modifying factors: The symptoms are alleviated by nothing, the symptoms are aggravated by chewing, food. Severity of symptoms: At their worst the symptoms were a " 10" out of "10". The patient has experienced similar episodes in the past, a few times. The patient has not recently seen a physician. patient reports severe pain in her tooth that began yesterday and became worse this morning. she states that she took an old amoxicillin and 800 mg of ibuprofen without relief. she could not get into to see her dentist. denies fever. Historical: - Home Meds: 09:21 Clonazepam Oral [Active]; Trazodone Oral [Active]; Fluoxetine Oral [Active]; Keppra bp Oral [Active]; - PMHx: 09:21 Anxiety; Bipolar disorder; depressive disorder; Seizure; bp - PSHx: 09:21 section; bp - Immunization history:: Adult Immunizations up to date. - Social history:: Smoking status: unknown. ROS: 10:00 Constitutional: Negative for fever, chills, and weight loss. sb4 10:00 ENT: Positive for Teeth pain 10:00 All other systems are negative. Exam: 10:00 Constitutional: This is a well developed, well nourished patient who is awake, alert, sb4 and in no acute distress. Head/Face: Normocephalic, atraumatic. 10:00 ENT: Dental exam: dental caries, diffusely, pain, that is moderate, specifically in the upper left lateral incisor. Vital Signs: 09:21 BP 128 / 84; Pulse 84; Resp 16; Temp 98; Pulse Ox 96% ; bp 09:39 Weight 153.77 kg; Height 5 ft. 4 in. ; Pain 10/10; vg1 09:39 Body Mass Index 58.19 (153.77 kg, 162.56 cm) vg1 09:39 Pain Scale: Adult vg1 MDM: 09:26 Patient medically screened. sb4 10:00 Differential diagnosis: dental caries, gingivitis, dental abscess, pericoronitis. Data sb4 reviewed: vital signs, nurses notes, and as a result, I will discharge patient. Counseling: I had a detailed discussion with the patient and/or guardian regarding the historical points, exam findings, and any diagnostic results supporting the discharge/admit diagnosis, the need for outpatient follow up, a dentist. Administered Medications: 09:48 Drug: Hydrocodone-Acetaminophen PO (7.5 mg-325 mg) 1 tabs Route: PO; vg1 09:48 Follow up: Response: Medication administered at discharge. vg1 09:48 Drug: Acetaminophen PO 650 mg Route: PO; vg1 09:48 Follow up: Response: Medication administered at discharge. vg1 09:48 Drug: Clindamycin PO 300 mg Route: PO; vg1 09:48 Follow up: Response: Medication administered at discharge. vg1 Disposition Summary: 03/13/23 09:39 Discharge Ordered Location: Home sb4 Problem: new sb4 Symptoms: are unchanged sb4 Condition: Stable sb4 Diagnosis - Dental caries, unspecified sb4 Followup: sb4 - With: Private Physician - When: Today - Reason: Recheck today's complaints, Continuance of care, Re-evaluation by your physician Discharge Instructions: - Discharge Summary Sheet sb4 - Dental Caries, Adult sb4 Forms: - Medication Reconciliation Form sb4 - Thank You Letter sb4 - Antibiotic Education sb4 - Prescription Opioid Use sb4 - Patient Portal Instructions sb4 - Leadership Thank You Letter sb4 Prescriptions: - Clindamycin HCl 300 mg Oral Capsule - take 1 capsule by ORAL route every 6 hours for 10 days; 40 capsule; Refills: 0, sb4 Product Selection Permitted - Medrol (Carlos Alberto) 4 mg Oral Tablets, Dose Pack - take 1 tablet by ORAL route as directed - follow package instructions; 1 sb4 packet; Refills: 0, Product Selection Permitted Signatures: Grey Sheridan RN Marina Khan RN RN vg1 Brown, Rosi, PA-C PA-C sb4
[2023-03-13] MEDS ORDERED: ACETAMINOPHEN 325 MG TABLET ONE (09:54)
[2023-03-13 09:55] VITALS: BP 128/84; TEMP 98; O2SAT 96
[2023-03-13] MEDS ORDERED: HYDROCODONE/APAP 7.5/325 MG TAB ONE (09:55)
== END 2023-03-13 09:49 | disposition home or self-care (01) ==
LOC: ER 09:09
DX: K02.9 Dental caries, unspecified (principal); F31.9 Bipolar disorder, unspecified
CPT/HCPCS: 99283

== ENCOUNTER → 2023-03-20 | Emergency (ER) | payer OTHER ==
--- OUTSIDE RECORDS SUMMARY | 2023-03-20 19:50 | XMS REPORT | Continuity of Care Document ---
:1995 Author Organization [facility] t Address [address] [place] [address] Care Team Providers Name Role Phone Sharpless [...] Comments Source Alcohol intake 2016-07-07 2016-07-07 [facility] non-drinker of Medical Ce nter alcohol (finding) Sex Assigned At [birth year] [facility] 00:00:00 00:00:00 [facility] Smoking Status Start Date Stop Date Source Never smoked tobacco [facility] Medications Ordered Filled Start Stop Current Ordering Indication Dosage Frequency Signature Comments Components Source Medication Medication Date Date Medication? Clinician (SIG) Name Name LORAZEPAM 2015-07 [facility]) 20:25: [address] LEVETIRACET 2015-07 Yes [facility] (KEPPRA 2-11 [facility]. [facility] ORAL) 20:25: [address] FLUOXETINE 2015-07 Yes Take [facility] (PROZAC 2-11 [facility]. [facility] ORAL) 20:25: [address] TRAZODONE 2015-07 Yes [facility] (TRAZODONE 20:25: Medical ORAL) [address] [place] [address] MECLIZINE 2016- Yes [facility] (MECLIZINE 20:25: Medical ORAL) [address] [place] [address] DIVALPROEX 2016- Yes Take [facility] SODIUM 2-11 mouth. [facility]ukes (DEPAKOTE 20:25: Medical ORAL) [address] [place] [address] LORAZEPAM 2015- Yes [facility] (ATIVAN 2-11 [facility]. [facility] ORAL) 20:25: [address] LEVETIRACET 2015- Yes Take [facility] AM (KEPPRA 2-11 mouth. Lukes ORAL) 20:25: [address] FLUOXETINE 2015- Yes Take [facility] (PROZAC 2-11 mouth. [facility]ukes ORAL) 20:25: [address] TRAZODONE 2016- Yes [facility] 2[facility]. [facility] (TRAZODONE 20:25: Medical ORAL) [address] [place] [address] MECLIZINE 2015- Yes [facility]CL 2[facility]. [facility] (MECLIZINE 20:25: Medical ORAL) [address] [place] [address] DIVALPROEX 2015- Yes Take [facility] SODIUM 2-11 mouth. Lukes (DEPAKOTE 20:25: Medical ORAL) [address] [place] [address] LORAZEPAM 2015- Yes [facility] (ATIVAN 2-11 mouth. [facility] ORAL) 20:25: [address] LEVETIRACET 2015- Yes Take [facility] (KEPPRA 2-11 mouth. [facility]ukes ORAL) 20:25: [address] FLUOXETINE 2015- Yes Take [facility] (PROZAC 2-11 mouth. [facility] ORAL) 20:25: [address] TRAZODONE 2016- Yes [facility] (TRAZODONE 20:25: Medical ORAL) [address] [place] [address] MECLIZINE 2016- Yes [facility]CL 2[facility]. [facility] (MECLIZINE 20:25: Medical ORAL) [address] [place] [address] DIVALPROEX 2015- Yes Take [facility] SODIUM 2-11 mouth. Lukes (DEPAKOTE 20:25: Medical ORAL) [address] [place] [address] LORAZEPAM 2016- Yes [facility] (ATIVAN 2-11 [facility]. [facility] ORAL) 20:25: [address] LEVETIRACET 2015- Yes Take [facility] (KEPPRA 2-11 mouth. [facility]ukes ORAL) 20:25: Medical [address] [place] [address] DIVALPROEX 2016- Yes Take [facility] SODIUM 2-11 mouth. Lukes (DEPAKOTE 20:25: Medical ORAL) [address] [place] [address] FLUOXETINE 2015- Yes Take [facility] (PROZAC 2-11 mouth. [facility]ukes ORAL) 20:25: Medical [address] [place] [address] TRAZODONE 2016- Yes [facility] 2-[facility]. [facility] (TRAZODONE 20:25: Medical ORAL) [address] [place] [address] MECLIZINE 2015- Yes Take [facility]CL 2-11 mouth. [facility] (MECLIZINE 20:25: Medical ORAL) [address] [place] [address] LORAZEPAM 2015- Yes [facility] (ATIVAN 2-11 mouth. [facility]ukes ORAL) 20:25: [address] MECLIZINE 2015- Yes [facility]CL 2-11 mouth. [facility] (MECLIZINE 20:25: Medical ORAL) [address] [place] [address] LEVETIRACET 2015- Yes Take [facility] (KEPPRA 2-11 mouth. Lukes ORAL) 20:25: [address] DIVALPROEX 2015- Yes Take [facility] SODIUM 2-11 mouth. Lukes (DEPAKOTE 20:25: Medical ORAL) [address] [place] [address] LORAZEPAM 2015- Yes [facility] (ATIVAN 2-11 mouth. [facility]ukes ORAL) 20:25: [address] LEVETIRACET 2015- Yes Take [facility] (KEPPRA 2-11 mouth. Lukes ORAL) 20:25: [address] FLUOXETINE 2015- Yes Take [facility] (PROZAC 2-11 mouth. Lukes ORAL) 20:25: [address] TRAZODONE 2015- Yes Take by [facility]CL 2-[facility]. [facility] (TRAZODONE 20:25: Medical ORAL) [address] [place] [address] FLUOXETINE 2015- Yes Take [facility] (PROZAC 2-11 mouth. Lukes ORAL) 20:25: [address] TRAZODONE 2015- Yes Take by [facility]CL 2-[facility] mouth. [facility] (TRAZODONE 20:25: Medical ORAL) [address] [place] [address] MECLIZINE 2015- Yes [facility]. [facility] (MECLIZINE 20:25: Medical ORAL) [address] DIVALPROEX 2015- Yes Take [facility] SODIUM 2-11 mouth. Lukes (DEPAKOTE 20:25: Medical ORAL) [facility] Procedures This patient has no known procedures. Encounters Start End Encounter Admission Attending Care Care Encounter Source Date/Time Date/Time Type Type Clinicians Facility Department ID 2022-12-24 Outpatient [facility] [id number] [place] 14:12:39 [id number] Health Results Test Description Test Time Test [...] ALP) RANGES ESTABLIS HED Ef fective April 20, new reference range s have beenestablished based on age and sex. Chemistry (test code = 20 U/L 5-34 N AST) Chemistry (test code = 22 U/L 8-55 N ALT) [id number] 19:54:00 Test Item Value Reference Range Interpretation Comments Chemistry (test code = LIP) 32 U/L 8-78 N Chemistry - [id number] 19:47:00 Test Item Value Reference Range Interpretation Comments Chemistry - Lactate (test code = 0.7 mmol/L 0.5-2.2 N LACTSEP-T) Chemistry - [id number] 19:44:00 Test Item Value Reference Range Interpretation Comments Chemistry - Specials POSITIVE NEGATIVE A Method of sensitivity- (test code = BHCGST) Indeter minant: results should be repea rosario after 48-72 hrs Positive: resul ts may be detected as early as 1 day after the first missed me nses. [id number] 19:35:00 Test Item Value Reference Range Interpretation [...] code = BASO#) 0.1 thou/uL 0.0-0.2 N [id number] 21:29:00 Test Item Value Reference Range Interpretation [...] code = BASO#) 0.1 thou/uL 0.0-0.2 N [id number] 20:50:00 Test Item Value Reference Range Interpretation Comments Accuchek (test code = ACU) 90 mg/dL 70-110 N Notes Date/Time Note Provider Source 2017-12-17 21:03:00-00:00 [facility] Name: PETEY OBANDO KATIE [facility] [email or web address] : 1995, Age: 22, Sex: JUAN ANTONIO Fernández [id number] Unit #: [id number], Status: [facility] [phone] Location: D/OP Report Dict Dr.: CHAYO EVANS MD Admission Date: Report #: [id number] Discharge Date: CC: Labor and Delivery H P Labor and Delivery H P Chief complaint: decreased movement HPI: 22 y/o at 30w2d, pat ient of Dr. Cedeno at [facility] in [place], presents with decreased FM and fever. She describes a headache since yesterday and fever up to 102.6 at home. Denies VB, abd pain, LOF, UTI sx, back pain, N/V/d. ROS neg for HEENT, cv, pulm, gi, gu, neuro, psych, skin, musculoskeletal or constitutional sx other than mentioned above. OB History Details: 1 prior ELTCS at 36 weeks at [place]. Baby at 7 months due to a [...] by Chayo Evans MD> 2145 2016-04-22 02:03:00-00:00 [facility] Name: PETEY OBANDO KYLE [facility] [address] : 1995, Age: 20, Sex: JUAN ANTONIO Fernández [id number] Unit #: [id number], Status: DIS IN [phone] Location: [facility] 207- Report Dict DrGlen: AYAZ COLE DO Admission Date: 04/19/16 Report #: [id number] Discharge Date: 04/20/16 CC: Rekha Blandon MD, [...] urinating when standing up w hile in [facility]. She has had multiple episodes similar to this over the last several d ays to weeks and has a history of seizure disorder that has been being treated. She has in the proc ess of having workup with Dr. 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
== END ==
LOC: ER 19:46
DX: Z02.9 Encounter for administrative examinations, unspecified (principal)

== ENCOUNTER 2023-03-21 19:39 | Emergency (ER) | payer OTHER ==
--- OUTSIDE RECORDS SUMMARY | 2023-03-21 19:42 | XMS REPORT | Continuity of Care Document ---
:1995 Author Organization [facility] t Address [address] [place] [address] Care Team Providers Name Role Phone Sharpless [...] Comments Source Alcohol intake 2016-07-07 2016-07-07 [facility] non-drinker of Medical Ce nter alcohol (finding) Sex Assigned At [birth year] [facility] 00:00:00 00:00:00 [facility] Smoking Status Start Date Stop Date Source Never smoked tobacco [facility] Medications Ordered Filled Start Stop Current Ordering Indication Dosage Frequency Signature Comments Components Source Medication Medication Date Date Medication? Clinician (SIG) Name Name LORAZEPAM 2015-07 Yes [facility] (ATIVAN 2-11 [facility]. [facility] ORAL) 20:25: [address] LEVETIRACET 2015-07 Yes Take [facility] (KEPPRA 2-11 mouth. Lukes ORAL) 20:25: [address] FLUOXETINE 2015-07 Yes Take [facility] (PROZAC 2-11 mouth. Lukes ORAL) 20:25: [address] TRAZODONE 2015-07 Yes Take by [facility] HCL 2-11 mouth. [facility]ukes (TRAZODONE 20:25: Medical ORAL) [address] [place] [address] MECLIZINE 2016- Yes Take by [facility] HCL 2-11 mouth. [facility]ukes (MECLIZINE 20:25: Medical ORAL) [address] [place] [address] DIVALPROEX 2016- Yes Take by [facility] SODIUM 2-11 mouth. Lukes (DEPAKOTE 20:25: Medical ORAL) [address] [place] [address] LORAZEPAM 2015- Yes [facility] by [facility] (ATIVAN 2-11 mouth. Lukes ORAL) 20:25: [address] LEVETIRACET 2015- Yes Take [facility] (KEPPRA 2-11 mouth. Lukes ORAL) 20:25: [address] FLUOXETINE 2015- Yes Take [facility] (PROZAC 2-11 mouth. Lukes ORAL) 20:25: [address] TRAZODONE 2016- Yes Take by [facility] HCL 2-11 [facility]. [facility]ukes (TRAZODONE 20:25: Medical ORAL) [address] [place] [address] MECLIZINE 2015- Yes Take by [facility] HCL 2-11 mouth. [facility]ukes (MECLIZINE 20:25: Medical ORAL) [address] [place] [address] DIVALPROEX 2015- Yes Take by [facility] SODIUM 2-11 mouth. Lukes (DEPAKOTE 20:25: Medical ORAL) [address] [place] [address] LORAZEPAM 2015- Yes Take by [facility] (ATIVAN 2-11 mouth. Lukes ORAL) 20:25: [address] LEVETIRACET 2015- Yes Take by [facility] (KEPPRA 2-11 mouth. Lukes ORAL) 20:25: [address] FLUOXETINE 2015- Yes Take [facility] (PROZAC 2-11 mouth. Lukes ORAL) 20:25: [address] TRAZODONE 2016- Yes Take by [facility] HCL 2-11 [facility]. [facility] (TRAZODONE 20:25: Medical ORAL) [address] [place] [address] MECLIZINE 2016- Yes Take by [facility] HCL 2-11 mouth. [facility]ukes (MECLIZINE 20:25: Medical ORAL) [address] [place] [address] DIVALPROEX 2015- Yes Take [facility] SODIUM 2-11 mouth. Lukes (DEPAKOTE 20:25: Medical ORAL) [address] [place] [address] LORAZEPAM 2016- Yes Take by [facility] (ATIVAN 2-11 mouth. Lukes ORAL) 20:25: [address] LEVETIRACET 2015- Yes Take by [facility] (KEPPRA 2-11 mouth. Lukes ORAL) 20:25: [address] DIVALPROEX 2016- Yes Take by [facility] SODIUM 2-11 mouth. Lukes (DEPAKOTE 20:25: Medical ORAL) [address] FLUOXETINE 2015- Yes Take [facility] (PROZAC 2-11 mouth. Lukes ORAL) 20:25: [address] TRAZODONE 2016- Yes Take by [facility] HCL 2-11 mouth. [facility]ukes (TRAZODONE 20:25: Medical ORAL) [address] [place] [address] MECLIZINE 2015- Yes Take by [facility] HCL 2-11 mouth. Lukes (MECLIZINE 20:25: Medical ORAL) [address] [place] [address] DIVALPROEX 2015- Yes Take by [facility] SODIUM 2-11 mouth. Lukes (DEPAKOTE 20:25: Medical ORAL) [address] [place] [address] LORAZEPAM 2015- Yes Take by [facility] (ATIVAN 2-11 mouth. Lukes ORAL) 20:25: [address] LEVETIRACET 2015- Yes Take by [facility] AM (KEPPRA 2-11 mouth. Lukes ORAL) 20:25: [address] FLUOXETINE 2015- Yes Take [facility] (PROZAC 2-11 mouth. Lukes ORAL) 20:25: [address] TRAZODONE 2015- Yes Take by [facility] HCL 2-11 mouth. Lukes (TRAZODONE 20:25: Medical ORAL) [address] [place] [address] MECLIZINE 2015- Yes Take by [facility] HCL 2-11 mouth. Lukes (MECLIZINE 20:25: Medical ORAL) [address] [place] [address] LORAZEPAM 2016- Yes Take by [facility] (ATIVAN 2-11 mouth. Lukes ORAL) 20:25: [address] LEVETIRACET 2015- Yes Take by [facility] (KEPPRA 2-11 mouth. Lukes ORAL) 20:25: [address] MECLIZINE 2015- Yes Take by [facility] HCL 2-11 mouth. Lukes (MECLIZINE 20:25: Medical ORAL) [address] [place] [address] DIVALPROEX 2015- Yes Take by [facility] SODIUM 2-11 mouth. Lukes (DEPAKOTE 20:25: Medical ORAL) [address] [place] [address] LORAZEPAM 2015-07 Yes Take by [facility] (ATIVAN 2-11 mouth. Lukes ORAL) 20:25: Medical [address] LEVETIRACET 2015-07 [address] [facility] (KEPPRA 2-11 mouth. Lukes ORAL) 20:25: Medical [address] [place] [address] FLUOXETINE 2015-07 Yes Take [facility] (PROZAC 2-11 mouth. Lukes ORAL) 20:25: Medical [address] [place] [address] FLUOXETINE 2015-07 Yes Take [facility] (PROZAC 2-11 mouth. Lukes ORAL) 20:25: Medical [address] [place] [address] TRAZODONE 2015-07 Yes Take by [facility] HCL 2-11 mouth. Lukes (TRAZODONE 20:25: Medical ORAL) [address] [place] [address] TRAZODONE 2015-07 Yes Take by [facility] HCL 2-11 mouth. Lukes (TRAZODONE 20:25: Medical ORAL) [address] [place] [address] MECLIZINE 2015-07 Yes Take by [facility] HCL 2-11 mouth. Lukes (MECLIZINE 20:25: Medical ORAL) [address] [place] [address] DIVALPROEX 2015-07 Yes Take by [facility] SODIUM 2-11 mouth. Lukes (DEPAKOTE 20:25: Medical ORAL) [address] [place] [address] Procedures This patient has no known procedures. Encounters Start End Encounter Admission Attending Care Care Encounter Source Date/Time Date/Time Type Type Clinicians Facility Department ID 2022-12-24 Outpatient [facility] [id number] [place] 14:12:39 [id number] Health Results Test Description Test Time Test [...] code = 22 U/L 8-55 N ALT) [id number] 19:54:00 Test Item Value Reference Range Interpretation Comments Chemistry (test code = LIP) 32 U/L 8-78 N Chemistry - [id number] 19:47:00 Test Item Value Reference Range Interpretation Comments Chemistry - Lactate (test code = 0.7 mmol/L 0.5-2.2 N LACTSEP-T) Chemistry - [id number] 19:44:00 Test Item Value Reference Range Interpretation Comments Chemistry - Specials POSITIVE NEGATIVE A Method of sensitivity- (test code = BHCGST) Indeter minant: results should be repea rosario after 48-72 hrs Positive: resul ts may be detected as early as 1 day after the first missed me nses. [id number] 19:35:00 Test Item Value Reference Range Interpretation [...] code = BASO#) 0.1 thou/uL 0.0-0.2 N [id number] 21:29:00 Test Item Value Reference Range Interpretation [...] code = BASO#) 0.1 thou/uL 0.0-0.2 N [id number] 20:50:00 Test Item Value Reference Range Interpretation Comments Accuchek (test code = ACU) 90 mg/dL 70-110 N Notes Date/Time Note Provider Source 2017-12-17 21:03:00-00:00 [facility] Name: PETEY OBANDO CHAYO [facility] [address] : 1995, Age: 22, Sex: JUAN ANTONIO Fernández [id number] Unit #: [id number], Status: [facility] [phone] Location: L D/OP Report Dict DrGlen: CHAYO EVANS MD Admission Date: Report #: [id number] Discharge Date: CC: Labor and Delivery H P Labor and Delivery H P Chief complaint: decreased movement HPI: 22 y/o at 30w2d, pat ient of Dr. Cedeno at [facility] in [place], presents with decreased FM and fever. She describes a headache since yesterday and fever up to 102.6 at home. Denies VB, abd pain, LOF, UTI sx, back pain, N/V/d. ROS neg for HEENT, cv, pulm, gi, gu, neuro, psych, skin, musculoskeletal or constitutional sx other than mentioned above. OB History Details: 1 prior ELTCS at 36 weeks at [place]. Baby at 7 months due to a [...] by Chayo Evans MD> 2145 2016-04-22 02:03:00-00:00 [facility] Name: PETEY OBANDO NELLY AYAZ [facility] [employer] : 1995, Age: 20, Sex: F JUAN ANTONIO [place] [id number] Unit #: [id number], Status: DIS IN [phone] Location: [address] [place] [address] AYAZ COLE DO Admission Date: 04/19/16 Report #: [id number] Discharge Date: 04/20/16 CC: Rekha Blandon MD, [...] urinating when standing up w hile in [facility]. She has had multiple episodes similar to this over the last several d ays to weeks and has a history of seizure disorder that has been being treated. She has in the proc ess of having workup with Dr. 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 We advised patient to not [...] now was symptom free while in the [facility], she was discharged to the care [...] 1145 Dictated Date/Time: 04/21/161914 Transcribed Date/Time: 04/22/16201 Radiation Control Health Physicist: ROSA
--- NOTE | 2023-03-21 20:33 | RAD REPORT ---
EXAM DESCRIPTION: CT - Head Brain Wo Cont - 03/21/2023 8:23 pm CLINICAL HISTORY: Headache COMPARISON: November 2022 TECHNIQUE: Computed axial tomography of the head was obtained. IV contrast was not requested. All CT scans are performed using dose optimization technique as appropriate and may include automated exposure control or mA/KV adjustment according to patient size. FINDINGS: An intracranial bleed is not seen The ventricles are normal in caliber No significant hypodense areas within the brain visualized No extra-axial fluid collection is noted. Fluid within the sinuses/ mastoids is not seen IMPRESSION: No acute intracranial abnormality is seen If patient's symptoms persist MRI of the brain would be recommended
[2023-03-21 21:08] LABS: Absolute Lymphocytes (CBC) 2.3 K/uL (0.7-4.9); Hematocrit 35.1 % (36.0-45.0); Lymphocytes % 33.5 % (15.3-44.8); MCV 83.4 fL (80-100); MPV 7.2 fL (7.6-11.3); Platelets 293 thou/uL (152-406)
[2023-03-21 21:13] LABS: Protime INR 0.96
[2023-03-21 21:30] LABS: ALT/SGPT 33 U/L (13-56); AST/SGOT 10 U/L (15-37); Albumin 3.6 g/dL (3.4-5.0); Alkaline Phosphatase 55 U/L (45-117); BUN Blood Urea Nitrogen 16 mg/dL (7-18); Bicarbonate 28 mEq/L (21-32); Bilirubin Total 0.2 mg/dL (0.2-1.0); Glomerular Filtration Rate 111 ml/min (=/>90); Glucose Level 99 mg/dL (74-106); Magnesium 1.9 mg/dL (1.6-2.4); Potassium 3.6 mEq/L (3.5-5.1); Protein, Total 7.3 g/dL (6.4-8.2); Sodium Level 136 mEq/L (136-145); Troponin High Sensitivity 3.9 pg/mL (<58.9)
[2023-03-21 21:32] LABS: Specific Gravity 1.027 (1.005-1.030)
[2023-03-21 21:42] LABS: Bilirubin Direct < 0.1 mg/dL (0-0.2); Bilirubin Indirect, Calculated ND mg/dL (0.2-0.8)
[2023-03-21 21:43] LABS: Specific Gravity 1.027 (1.005-1.030); Urine Bacteria None Seen /HPF (<20); Urine Bilirubin NEGATIVE (Negative); Urine Blood 3+ (OVER) (Negative); Urine Clarity Extremely Turbid (Clear); Urine Color Light-Yellow (Yellow); Urine Glucose NEGATIVE (Negative); Urine Mucus Slight /HPF (None Seen); Urine Protein TRACE (Negative); Urine RBC >50 /HPF (None Seen); Urine Urobilinogen Normal (Normal)
[2023-03-21 21:44] LABS: Barbiturates NEGATIVE (NEGATIVE); Benzodiazepines NEGATIVE (NEGATIVE); Cocaine NEGATIVE (NEGATIVE); METHAMPHETAM NEGATIVE (NEGATIVE); Methadone NEGATIVE (NEGATIVE); Opiates NEGATIVE (NEGATIVE); Phencyclidine NEGATIVE (NEGATIVE); THC Cannibis NEGATIVE (NEGATIVE)
[2023-03-21] MEDS ORDERED: NA CHLORIDE 0.9% 1,000 ML ONE (22:00)
--- NOTE | 2023-03-21 22:42 | ER ---
Nurse's Notes [facility] Name: Corrie Hartman Age: 27 yrs Sex: Female : 1995 Arrival Date: 03/21/2023 Time: 19:39 Bed 14 Private MD: Diagnosis: Weakness;Syncope Near Presentation: 03/21 19:59 Chief complaint: Patient states: gen weakness and dizziness x 3 days also blurred kl vision off and on reports in heat all day. Coronavirus screen: Vaccine status: Patient reports being unvaccinated. Ebola Screen: Patient negative for fever greater than or equal to 101.5 degrees Fahrenheit, and additional compatible Ebola Virus Disease symptoms. Initial Sepsis Screen: Does the patient meet any 2 criteria? No. Patient's initial sepsis screen is negative. Does the patient have a suspected source of infection? No. Patient's initial sepsis screen is negative. Risk Assessment: Do you want to hurt yourself or someone else? Patient reports no desire to harm self or others. 19:59 Method Of Arrival: Wheelchair 19:59 Acuity: MARKO 3 kl 20:02 Note pt reports out of keppra x 1 week. kl Triage Assessment: 20:02 General: Appears uncomfortable, Behavior is calm, cooperative. Pain:. kl 20:02 Neuro: No deficits noted. Level of Consciousness is awake, alert, obeys commands, kl Oriented to person, place, time, situation, Speech is normal, Facial symmetry appears normal, Pupils are PERRLA. Historical: - Allergies: 20:01 No Known Allergies; kl - Home Meds: 22:15 Trazodone Oral [Active]; Clonazepam Oral [Active]; ha1 - PMHx: 20:01 Anxiety; Bipolar disorder; depressive disorder; Seizure; subdural bleed; kl - PSHx: 20:01 section; kl - Immunization history:: Adult Immunizations not immunized. - Social history:: Smoking status: Reported history of juuling and/or vaping. Screenin:03 [facility] ED Fall Risk Assessment (Adult) History of falling in the last 3 months, ha1 including since admission No falls in past 3 months (0 pts) Confusion or Disorientation No (0 pts) Intoxicated or Sedated No (0 pts) Impaired Gait No (0 pts) Mobility Assist Device Used No (0 pt) Altered Elimination No (0 pt) Score/Fall Risk Level 0 - 2 = Low Risk Oriented to surroundings, Maintained a safe environment, Educated pt \T\ family on fall prevention, incl call for assistance when getting out of bed, Hourly rounding (assess needs \T\ fall precautionary measures) done. Abuse screen: Denies threats or abuse. Denies injuries from another. Nutritional screening: No deficits noted. Tuberculosis screening: No symptoms or risk factors identified. Assessment: 20:03 General: Appears comfortable, Behavior is calm, cooperative. Pain: Denies pain. Neuro: ha1 Level of Consciousness is awake, alert, obeys commands, Oriented to person, place, time, situation, Reports blurred vision dizziness. Cardiovascular: Patient's skin is warm and dry. Cardiovascular: Denies chest pain, Heart tones S1 S2 present Rhythm is sinus rhythm. Respiratory: Airway is patent Respiratory effort is even, unlabored, Respiratory pattern is regular, symmetrical. GI: No signs and/or symptoms were reported involving the gastrointestinal system. Derm: Skin is pink, warm \T\ dry. Musculoskeletal: Circulation, motion, and sensation intact. Range of motion: intact in all extremities. 21:00 Reassessment: Patient and/or family updated on plan of care and expected duration. Pain ha1 level reassessed. Patient is alert, oriented x 3, equal unlabored respirations, skin warm/dry/pink. 22:00 Reassessment: Patient and/or family updated on plan of care and expected duration. Pain ha1 level reassessed. Patient is alert, oriented x 3, equal unlabored respirations, skin warm/dry/pink. 22:52 Reassessment: Patient appears in no apparent distress at this time. Patient states kl feeling better. Patient states symptoms have improved. Vital Signs: 03/20 21:20 BP 122 / 80 Sitting; Pulse 83; Resp 17 S; Pulse Ox 100% on R/A; ha1 03/21 19:59 BP 145 / 94; Pulse 93; Resp 18; Temp 98.1(TE); Pulse Ox 98% on R/A; Weight 154.22 kg; kl Height 5 ft. 4 in. ; Pain 8/10; 21:17 BP 132 / 88 Supine; Pulse 86; Resp 18 S; Pulse Ox 100% on R/A; ha1 21:20 BP 122 / 80 Standing; Pulse 82; Resp 17 S; Pulse Ox 99% ; ha1 22:00 BP 111 / 65; Pulse 75; Resp 17 S; Pulse Ox 100% on R/A; ha1 22:52 BP 112 / 74; Pulse 73; Resp 18; Pulse Ox 100% on R/A; kl 19:59 Body Mass Index 58.36 (154.22 kg, 162.56 cm) kl 03/21 19:59 Pain Scale: Adult ED Course: 19:40 Patient arrived in ED. [id number] 19:55 Sonya Davies FNP-C is PHCP. kb 19:55 Zacarias Hendricks MD is Attending Physician. kb 20:01 Triage completed. kl 20:03 Patient has correct armband on for positive identification. Placed in gown. Bed in low ha1 position. Call light in reach. Side rails up X 1. 20:03 Arm band placed on right wrist. ha1 20:25 CT Head Brain wo Cont In Process Unspecified. EDMS 21:16 Susan Dangelo, RN is Primary Nurse. ha1 21:16 Basic Metabolic Panel Sent. ha1 21:16 Hepatic Function Sent. ha1 21:16 Magnesium Sent. ha1 21:17 Test, Urine Sent. ha1 21:17 Troponin High Sensitivity Sent. ha1 21:17 UDS Sent. ha1 21:17 Urinalysis w/ reflexes Sent. ha1 22:52 No provider procedures requiring assistance completed. IV discontinued, intact, ha1 bleeding controlled, No redness/swelling at site. Pressure dressing applied. 22:53 Provided Education on: follow ups. ha1 Administered Medications: 21:48 Drug: NS 0.9% IV 1000 ml Route: IV; Rate: 1000 ml; Site: left antecubital; ha1 22:53 Follow up: Response: No adverse reaction ha1 Medication: 22:15 VIS not applicable for this client. ha1 Outcome: 22:41 Discharge ordered by . kb 22:53 Discharged to home ambulatory. ha1 22:53 Condition: stable 22:53 Discharge instructions given to patient, Instructed on discharge instructions, follow up and referral plans. Demonstrated understanding of instructions, follow-up care. 22:53 Discharged to home ambulatory. kl 22:53 Condition: improved 22:53 Discharge instructions given to Instructed on discharge instructions, follow up and referral plans. Demonstrated understanding of instructions, follow-up care. 22:53 Patient left the ED. Signatures: Dispatcher [employer] Sonya Nance FNP-C FNP-Nora Castellanos RN RN kl Jeffries, Jennifer jj6 Susan Dangelo RN RN ha1 Corrections: (The following items were deleted from the chart) 22:16 20:01 Home Meds: Trazodone Oral; [facility] 22:16 20:01 Home Meds: Clonazepam Oral; [facility] 22:16 20:01 Home Meds: Fluoxetine Oral; [facility]
--- NOTE | 2023-03-21 22:42 | EDPHYS ---
Physician Documentation [facility] Name: Corrie Hartman Age: 27 yrs Sex: Female : 1995 Arrival Date: 03/21/2023 Time: 19:39 Bed 14 Private MD: ED Physician Zacarias Hendricks HPI: 03/21 22:49 This 27 yrs old Female presents to ER via Wheelchair with complaints of General kb Weakness, Blurred Vision, Dizziness. 22:49 The patient has experienced near-syncope. Onset: The symptoms/episode began/occurred kb today. Duration: This was a single episode. Context: occurred at home. Associated injury: The patient did not suffer any apparent associated injury. Associated signs and symptoms: Pertinent positives: dizziness, weakness. Current symptoms: Currently, the patient is not experiencing any symptoms, the patient feels back to baseline, no decreased level of consciousness, no confusion, no dysphasia, no headache, no paralysis, no visual changes. The patient has not experienced similar symptoms in the past. The patient has not recently seen a physician. Pt reports weakness and dizziness for 3 days, as well as near syncopal episode in the kitchen today. States she has been in the heat constantly and hasn't been drinking fluids. . Historical: - Allergies: 20:01 No Known Allergies; kl - Home Meds: 22:15 Trazodone Oral [Active]; Clonazepam Oral [Active]; ha1 - PMHx: 20:01 Anxiety; Bipolar disorder; depressive disorder; Seizure; subdural bleed; kl - PSHx: 20:01 section; kl - Immunization history:: Adult Immunizations not immunized. - Social history:: Smoking status: Reported history of juuling and/or vaping. ROS: 22:50 Constitutional: Negative for fever, chills, and weight loss. kb 22:50 Neuro: Positive for dizziness, near syncope, weakness. 22:50 All other systems are negative. Exam: 22:50 Constitutional: This is a well developed, well nourished patient who is awake, alert, kb and in no acute distress. Head/Face: Normocephalic, atraumatic. Eyes: Pupils equal round and reactive to light, extra-ocular motions intact. Lids and lashes normal. Conjunctiva and sclera are non-icteric and not injected. Cornea within normal limits. Periorbital areas with no swelling, redness, or edema. ENT: Moist Mucous membranes Cardiovascular: Regular rate and rhythm with a normal S1 and S2. No gallops, murmurs, or rubs. No pulse deficits. Respiratory: Respirations even and unlabored. No increased work of breathing. Talking in full sentences Abdomen/GI: Soft, non-tender. No distention Skin: Warm, dry with normal turgor. Normal color. MS/ Extremity: Pulses equal, no cyanosis. Neurovascular intact. Full, normal range of motion. Neuro: Awake and alert, GCS 15, oriented to person, place, time, and situation. Moves all extremities. Normal gait. Vital Signs: 03/20 21:20 BP 122 / 80 Sitting; Pulse 83; Resp 17 S; Pulse Ox 100% on R/A; ha1 03/21 19:59 BP 145 / 94; Pulse 93; Resp 18; Temp 98.1(TE); Pulse Ox 98% on R/A; Weight 154.22 kg; kl Height 5 ft. 4 in. ; Pain 8/10; 21:17 BP 132 / 88 Supine; Pulse 86; Resp 18 S; Pulse Ox 100% on R/A; ha1 21:20 BP 122 / 80 Standing; Pulse 82; Resp 17 S; Pulse Ox 99% ; ha1 22:00 BP 111 / 65; Pulse 75; Resp 17 S; Pulse Ox 100% on R/A; ha1 22:52 BP 112 / 74; Pulse 73; Resp 18; Pulse Ox 100% on R/A; kl 19:59 Body Mass Index 58.36 (154.22 kg, 162.56 cm) 03/21 19:59 Pain Scale: Adult kl MDM: 19:55 Patient medically screened. kb 22:50 Differential Diagnosis: cardiac arrhythmia, idiopathic syncope, vasovagal episode, near kb syncope, dehydration, electrolyte imbalance, ICH. Data reviewed: vital signs, nurses notes. Counseling: I had a detailed discussion with the patient and/or guardian regarding the historical points, exam findings, and any diagnostic results supporting the discharge/admit diagnosis, lab results, radiology results, the need for outpatient follow up, a family practitioner, to return to the emergency department if symptoms worsen or persist or if there are any questions or concerns that arise at home. ED course: Pt has a history of atraumatic subdural hemorrhage. CT scan of brain completed and negative for acute finding. 03/21 20:00 Order name: Basic Metabolic Panel; Complete Time: 21:44 kb 03/21 20:00 Order name: CBC with Diff; Complete Time: 21:15 kb 03/21 20:00 Order name: Hepatic Function; Complete Time: 21:44 kb 03/21 20:00 Order name: Magnesium; Complete Time: 21:44 kb 03/21 20:00 Order name: Test, Urine; Complete Time: 21:50 kb 03/21 20:00 Order name: Protime (+inr); Complete Time: 21:15 kb 03/21 20:00 Order name: Ptt, Activated; Complete Time: 21:15 kb 03/21 20:00 Order name: Troponin High Sensitivity; Complete Time: 21:44 kb 03/21 20:00 Order name: UDS; Complete Time: 21:44 kb 03/21 20:00 Order name: Urinalysis w/ reflexes; Complete Time: 21:50 kb 03/21 21:50 Order name: Urine Culture EDMS 03/21 20:00 Order name: CT Head Brain wo Cont; Complete Time: 20:39 kb 03/21 20:00 Order name: EKG; Complete Time: 20:01 kb 03/21 20:00 Order name: Cardiac monitoring; Complete Time: 21:16 kb 03/21 20:00 Order name: EKG - Nurse/Tech; Complete Time: 21:16 kb 03/21 20:00 Order name: IV Saline Lock; Complete Time: 21:16 kb 03/21 20:00 Order name: Labs collected and sent; Complete Time: 21:16 kb 03/21 20:00 Order name: NPO; Complete Time: 21:16 kb 03/21 20:00 Order name: O2 Per Protocol; Complete Time: 21:16 kb 03/21 20:00 Order name: O2 Sat Monitoring; Complete Time: 21:16 kb 03/21 20:00 Order name: Orthostatics; Complete Time: 21:17 kb Administered Medications: 21:48 Drug: NS 0.9% IV 1000 ml Route: IV; Rate: 1000 ml; Site: left antecubital; ha1 22:53 Follow up: Response: No adverse reaction ha1 Disposition Summary: 03/21/23 22:41 Discharge Ordered Location: Home kb Condition: Stable kb Diagnosis - Weakness kb - Syncope Near kb Followup: kb - With: Emergency Department - When: As needed - Reason: Worsening of condition Followup: kb - With: Private Physician - When: 2 - 3 days - Reason: Recheck today's complaints, Continuance of care, Re-evaluation by your physician Discharge Instructions: - Discharge Summary Sheet kb - Near-Syncope, [id number] kb - Weakness, [id number] kb Forms: - Medication Reconciliation Form kb - Thank You Letter kb - Antibiotic Education kb - Prescription Opioid Use kb - Patient Portal Instructions kb - Leadership Thank You Letter Signatures: Dispatcher [employer] EDSonya Golden, ELYSSA-C ELYSSA-Nora Castellanos RN RN Susan Ansari RN RN [facility] Corrections: (The following items were deleted from the chart) 22:16 20:01 Home Meds: Trazodone Oral; [facility] 22:16 20:01 Home Meds: Clonazepam Oral; [facility] 22:16 20:01 Home Meds: Fluoxetine Oral; [facility]
[2023-03-21 23:37] VITALS: TEMP 98.1
[2023-03-21 23:42] VITALS: O2SAT 100
[2023-03-21 23:43] VITALS: BP 112/74
--- NOTE | 2023-03-23 15:08 | EKG ---
Test Date: 2023-03-21 Test Time: 21:07:41 Operations Team Leader: ASHWINI MEASUREMENT RESULTS: Intervals: Rate: 81 IN: 152 QRSD: 96 QT: 378 QTc: 439 [place]: P: 34 IN: 152 QRS: 122 T: 15 INTERPRETIVE STATEMENTS: Normal sinus rhythm Right axis deviation Abnormal ECG Compared to ECG 12/20/2022 23:12:42 Right-axis deviation now present Electronically Signed On 03-23-23 15:06:05 CDT by Alphonse Alvarado
== END 2023-03-21 22:53 | disposition home or self-care (01) ==
LOC: ER 19:39
DX: R53.1 Weakness (principal); R55 Syncope and collapse; F31.9 Bipolar disorder, unspecified
CPT/HCPCS: 93005; 87088; 85025; 81001; 87086; 80048; 36415; 83735; 81025; 85610; 80076; 85730; 84484; 80307; 70450; 99284; J7030; 87077; 87186

== ENCOUNTER 2023-04-10 09:02 | Emergency (ER) | payer OTHER ==
--- OUTSIDE RECORDS SUMMARY | 2023-04-10 09:05 | XMS REPORT | Continuity of Care Document ---
:1995 Author Organization [facility] t Address [address] [place] [address] Care Team Providers Name Role Phone Sharpless [...] Comments Source Alcohol intake 2016-07-07 2016-07-07 Current [facility] es 00:00:00 00:00:00 non-drinker of Medical Ce nter alcohol (finding) Sex Ass[birth year] At [birth year] [facility] 00:00:00 00:00:00 [facility] Smoking Status Start Date Stop Date Source Never smoked tobacco [facility] Medications Ordered Filled Start Stop Current Ordering Indication Dosage Frequency Signature Comments Components Source Medication Medication Date Date Medication? Clinician (SIG) Name Name LEVETIRACET 2015-07 Yes [facility] ([facility]) [facility] FLUOXETINE 2015-07 Yes [facility] (PROZAC [facility]) [facility] TRAZODONE 2015-07 Yes [facility] (TRAZODONE 20:25: Medical ORAL) [address] [place] [address] MECLIZINE 2015-07 Yes [facility] (MECLIZINE 20:25: Medical ORAL) [address] [place] [address] DIVALPROEX 2016- Yes Take [facility] SODIUM [facility] (DEPAKOTE 20:25: Medical ORAL) [address] LORAZEPAM 2016- Yes [facility] (ATIVAN [facility]) 20:25: [address] LEVETIRACET 2015- Yes Take [facility] (KEPPRA 2-[facility]) 20:25: [address] FLUOXETINE 2015- Yes Take [facility] (PROZAC 2[facility]) 20:25: [address] TRAZODONE 2016- Yes [facility] (TRAZODONE 20:25: Medical ORAL) [address] [place] [address] MECLIZINE 2016- Yes [facility] (MECLIZINE 20:25: Medical ORAL) [address] [place] [address] DIVALPROEX 2015- Yes Take [facility]UM 2[facility] (DEPAKOTE 20:25: Medical ORAL) [address] [place] [address] LORAZEPAM 2015- Yes [facility] (ATIVAN [facility]) 20:25: [address] LEVETIRACET 2015- Yes Take [facility] (KEPPRA 2-[facility]) 20:25: [address] FLUOXETINE 2015- Yes Take [facility] (PROZAC 2-[facility]) 20:25: [address] TRAZODONE 2015- Yes [facility] (TRAZODONE 20:25: Medical ORAL) [address] [place] [address] MECLIZINE 2015- Yes [facility] (MECLIZINE 20:25: Medical ORAL) [address] [place] [address] DIVALPROEX 2015- Yes Take [facility]UM 2-[facility] (DEPAKOTE 20:25: Medical ORAL) [address] [place] [address] LORAZEPAM 2016- Yes [facility] (ATIVAN [facility]) 20:25: [address] LEVETIRACET 2015- Yes Take [facility] (KEPPRA 2-[facility]) 20:25: [address] FLUOXETINE 2015-1 Yes Take [facility] (PROZAC 2[facility]) 20:25: [address] TRAZODONE 2016- Yes [facility] (TRAZODONE 20:25: Medical ORAL) [address] [place] [address] MECLIZINE 2015- Yes [facility] (MECLIZINE 20:25: Medical ORAL) [address] [place] [address] DIVALPROEX 2015- Yes Take [facility]UM 2-[facility] (DEPAKOTE 20:25: Medical ORAL) [address] LORAZEPAM 2015- Yes [facility] (ATIVAN 2-[facility]) 20:25: [address] LEVETIRACET 2015- Yes Take [facility] (KEPPRA 2-[facility] OR[facility]) 20:25: [address] FLUOXETINE 2015-[address] [facility] (PROZAC 2-[facility]) 20:25: [address] TRAZODONE 2015- Yes [facility] (TRAZODONE 20:25: Medical ORAL) [address] [place] [address] MECLIZINE 2015-07 Yes [facility] (MECLIZINE 20:25: Medical ORAL) [address] [place] [address] DIVALPROEX 2015- Yes Take [facility]UM 2-[facility] (DEPAKOTE 20:25: Medical ORAL) [address] [place] [address] DIVALPROEX 2015- Yes Take [facility]IUM 2-[facility] (DEPAKOTE 20:25: Medical ORAL) [address] LORAZEPAM 2015- Yes [facility] (ATIVAN 2-[facility]) 20:25: [address] LEVETIRACET 2015- Yes Take [facility] (KEPPRA 2-[facility] OR[facility]) 20:25: [address] FLUOXETINE 2015- Yes Take [facility] (PROZAC 2-[facility]) 20:25: [address] TRAZODONE 2015- Yes [facility] (TRAZODONE 20:25: Medical ORAL) [address] [place] [address] MECLIZINE 2015- Yes [facility] (MECLIZINE 20:25: Medical ORAL) [address] [place] [address] LORAZEPAM 2015- Yes [facility] (ATIVAN 2-[facility]) 20:25: [address] LEVETIRACET 2015- Yes Take [facility] (KEPPRA 2-[facility] ORAL) 20:25: [address] FLUOXETINE 2015- Yes Take [facility] (PROZAC 2-[facility]) 20:25: [address] TRAZODONE 2015- Yes [facility] (TRAZODONE 20:25: Medical ORAL) [address] [place] [address] MECLIZINE 2015- Yes [facility] (MECLIZINE 20:25: Medical ORAL) [address] [place] [address] MECLIZINE 2015- Yes [facility] (MECLIZINE 20:25: Medical ORAL) [address] [place] [address] DIVALPROEX 2015- Yes Take [facility]IUM 2-[facility] (DEPAKOTE 20:25: Medical ORAL) [address] [place] [address] LORAZEPAM 2015-07 Yes [facility] (ATIVAN 2-[facility]) 20:25: [address] LEVETIRACET 2015- Yes Take [facility] (KEPPRA 2-[facility] ORAL) 20:25: [address] FLUOXETINE 2015- Yes Take [facility] (PROZAC 2-[facility]) 20:25: [address] TRAZODONE 2015- Yes [facility] (TRAZODONE 20:25: Medical ORAL) [address] [place] [address] DIVALPROEX 2015- Yes Take [facility] SODIUM 2-[facility] (DEPAKOTE 20:25: Medical ORAL) [address] [place] [address] LORAZEPAM 2015- Yes [facility] (ATIVAN 2-[facility]) 20:25: [address] Procedures This patient has no known procedures. Encounters Start End Encounter Admission Attending Care Care Encounter Source Date/Time Date/Time Type Type Clinicians Facility Department ID 2022-12-[address] [facility] [id number] [place] 14:12:39 [id number] Health Results Test Description Test Time Test [...] code = 22 U/L 8-55 N ALT) [id number] 19:54:00 Test Item Value Reference Range Interpretation Comments Chemistry (test code = LIP) 32 U/L 8-78 N Chemistry - [id number] 19:47:00 Test Item Value Reference Range Interpretation Comments Chemistry - Lactate (test code = 0.7 mmol/L 0.5-2.2 N LACTSEP-T) Chemistry - [id number] 19:44:00 Test Item Value Reference Range Interpretation Comments Chemistry - Specials POSITIVE NEGATIVE A Method of sensitivity- (test code = BHCGST) Indeter minant: results should be repea rosario after 48-72 hrs Positive: resul ts may be detected as early as 1 day after the first missed me nses. [id number] 19:35:00 Test Item Value Reference Range Interpretation [...] code = BASO#) 0.1 thou/uL 0.0-0.2 N [id number] 21:29:00 Test Item Value Reference Range Interpretation [...] code = BASO#) 0.1 thou/uL 0.0-0.2 N [id number] 20:50:00 Test Item Value Reference Range Interpretation Comments Acclaura (test code = ACU) 90 mg/dL 70-110 N Notes Date/Time Note Provider Source 2017-12-17 21:03:00-00:00 [facility] Name: JOSSUE OBANDOHER CAITLYN EVANS [facility] [employer] : 1995, Age: 22, Sex: JUAN ANTONIO Fernández [id number] Unit #: [id number], [place] [facility] [phone] Location: D/OP Report Dict DrGlen: CHAYO EVANS MD Admission Date: Report #: [id number] Discharge Date: CC: Labor and Delivery H P Labor and Delivery H P Chief complaint: decreased movement HPI: 22 y/o at 30w2d, pat ient of Dr. Cedeno at [facility] in [place], presents with decreased FM and fever. She describes a headache since yesterday and fever up to 102.6 at home. Denies VB, abd pain, LOF, UTI sx, back pain, N/V/d. ROS neg for HEENT, cv, pulm, gi, gu, neuro, psych, skin, musculoskeletal or constitutional sx other than mentioned above. OB History Details: 1 prior ELTCS at 36 weeks at [place]. Baby at 7 months due to a [...] by Chayo Evans MD> [id number] 2016-04-22 02:03:00-00:00 [facility] Name: PETEY OBANDO KYLE [facility] [employer] : 1995, Age: 20, Sex: JUAN ANTONIO Fernández [id number] Unit #: [id number], Status: DIS IN [phone] Location: [address] [place] [address] Report Dict DrGlen: AYAZ COLE DO Admission Date: 04/19/16 Report #: [id number] Discharge Date: 04/20/16 CC: Rekha Blandon MD, KYLE C DO McClellan, David MD Perrone, Janelle MD DISCHARGE SUMMARY REPORT DATE OF ADMISSION: 04/19/2016 DATE OF DISCHARGE: 04/20/2016 RESIDENT: Ayaz Cole D.O. ADMITTING PHYSICIAN: Rekha Blandon M.D. DISCHARGE ATTENDING: Rekha Blandon M.D. CONSULT: Mer Saligram, M.D. with Neurology. PROCEDURES: None. PRIMARY DIAGNOSIS: [...] bathroom after urinating when standing up w madelyn in [facility]. She has had multiple episodes similar to this over the last several d ays to weeks and has a history of seizure disorder that has been being treated. She has in the proc ess of having workup with Dr. Allen with Neurology as well as Station Agent, and she also h as psychiatrist that [...] now was symptom free while in the [facility], she was discharged to the care [...] [id number] Dictated Date/Time: 04/21/161914 Transcribed Date/Time: 04/22/16 020 Water Manager: ROSA
--- NOTE | 2023-04-10 09:47 | EDPHYS ---
Physician Documentation [facility] Name: Corrie Hartman Age: 27 yrs Sex: Female : 1995 Arrival Date: 04/10/2023 Time: 09:02 Bed DIS4 Private MD: ED Physician Pal Smith HPI: 04/10 09:51 This 27 yrs old Female presents to ER via Ambulatory with complaints of Back Pain. sb4 09:51 The patient presents with pain that is acute, with no known mechanism of injury. The sb4 symptoms are located in the low back. Onset: The symptoms/episode began/occurred 1 week(s) ago. The pain does not radiate. Associated signs and symptoms: The patient has no apparent associated signs or symptoms. The problem was sustained without known cause. Modifying factors: The patient symptoms are alleviated by remaining still, the patient symptoms are aggravated by bending. Severity of symptoms: At their worst the symptoms were mild. The patient has not experienced similar symptoms in the past. The patient has not recently seen a physician. MEDIA THEORIST AND AUTHOR OF: 10:00 LMP N/A - control method ll1 Historical: - Allergies: 09:37 No Known Allergies; ko1 - Immunization history:: Adult Immunizations up to date. - Social history:: Smoking status: . ROS: 09:51 Constitutional: Negative for fever, chills, and weight loss. sb4 09:51 Back: Positive for pain with movement. 09:51 All other systems are negative. Exam: 09:51 Constitutional: This is a well developed, well nourished patient who is awake, alert, sb4 and in no acute distress. Head/Face: Normocephalic, atraumatic. Eyes: Extra-ocular motions intact. Periorbital areas with no swelling, redness, or edema. ENT: Mucous membranes moist. Back: No spinal tenderness. No costovertebral tenderness. Full range of motion. Skin: Warm, dry with normal turgor. Normal color with no rashes, no lesions, and no evidence of cellulitis. MS/ Extremity: Pulses equal, no cyanosis. Neurovascular intact. Full, normal range of motion. Neuro: Awake and alert, GCS 15, oriented to person, place, time, and situation. Motor strength 5/5 in all extremities. Sensory grossly intact. Normal gait. Vital Signs: 09:37 BP 122 / 74; Pulse 96; Resp 18; Temp 98.2; Pulse Ox 98% ; ko1 MDM: 09:22 Patient medically screened. sb4 09:51 Differential diagnosis: chronic back pain, Joint Injury Ligament Injury Obesity. sb4 09:55 Data reviewed: vital signs, nurses notes, I have discussed the patient's sb4 presentation/case with the attending Emergency Department Physician; and as a result, I will discharge patient. Test considered but Not performed: X-ray: not indicated, no acute injury. chronic problem. Counseling: I had a detailed discussion with the patient and/or guardian regarding the historical points, exam findings, and any diagnostic results supporting the discharge/admit diagnosis, the need for outpatient follow up, for definitive care. Administered Medications: No medications were administered Disposition Summary: 04/10/23 09:46 Discharge Ordered Location: Home sb4 Problem: an ongoing problem sb4 Symptoms: are unchanged sb4 Condition: Stable sb4 Diagnosis - Low back pain sb4 Followup: sb4 - With: Micky Muniz, - When: As needed - Reason: Recheck today's complaints, Re-evaluation by your physician Discharge Instructions: - Discharge Summary Sheet sb4 - Acute Back Pain, Adult sb4 - Pain Without a Known Cause sb4 Forms: - Medication Reconciliation Form sb4 - Thank You Letter sb4 - Antibiotic Education sb4 - Prescription Opioid Use sb4 - Patient Portal Instructions sb4 - Leadership Thank You Letter sb4 Prescriptions: - Cyclobenzaprine 10 mg Oral Tablet - take 1 tablet by ORAL route every 8 hours As needed; 30 tablet; Refills: 0, sb4 Product Selection Permitted - Diclofenac Sodium 75 mg Oral Tablet Sustained Release - take 1 tablet by ORAL route 2 times per day; 30 tablet; Refills: 0, Product sb4 Selection Permitted Signatures: Jackie aHrding RN RN ll1 Franchesca Layton RN RN ko1 Rosi Daniels PA-C PA-C sb4 Corrections: (The following items were deleted from the chart) 09:37 09:37 PMHx: Anxiety; ko1 ko1 09:37 09:37 PMHx: depressive disorder; ko1 ko1 09:37 09:37 PMHx: Seizure; ko1 ko1 09:37 09:37 PMHx: Bipolar disorder; ko1 ko1 09:37 09:37 PMHx: Subdural Bleed; ko1 ko1 09:37 09:37 PSHx: section; ko1 ko1
--- NOTE | 2023-04-10 09:47 | ER ---
Nurse's Notes [facility] Name: Corrie Hartman Age: 27 yrs Sex: Female : 1995 Arrival Date: 04/10/2023 Time: 09:02 Bed DIS4 Private MD: Diagnosis: Low back pain Presentation: 04/10 09:27 Chief complaint: Patient states: lower back pain x 1-2 weeks. ko1 09:36 Ebola Screen: Patient denies travel to an Ebola-affected area in the 21 days before ll1 illness onset. Risk Assessment: Do you want to hurt yourself or someone else? Patient reports no desire to harm self or others. 09:36 Method Of Arrival: Ambulatory ll1 09:37 Coronavirus screen: At this time, the client does not indicate any symptoms associated ko1 with coronavirus-19. Initial Sepsis Screen: Does the patient meet any 2 criteria? No. Patient's initial sepsis screen is negative. Does the patient have a suspected source of infection? No. Patient's initial sepsis screen is negative. Onset of symptoms is unknown. 09:37 Acuity: MARKO 4 ko1 Triage Assessment: 09:54 General: Appears in no apparent distress. Behavior is calm, cooperative. ll1 Musculoskeletal: Circulation, motion, and sensation intact. Capillary refill < 3 seconds. 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 - Social history:: Smoking status: . Screenin:35 [facility] ED Fall Risk Assessment (Adult) Score/Fall Risk Level 0 - 2 = Low Risk ll1 Oriented to surroundings, Maintained a safe environment, Educated pt \T\ family on fall prevention, incl call for assistance when getting out of bed, Hourly rounding (assess needs \T\ fall precautionary measures) done. Abuse screen: Denies threats or abuse. Nutritional screening: No deficits noted. Tuberculosis screening: No symptoms or risk factors identified. Assessment: 09:51 General: Appears in no apparent distress. Behavior is calm, cooperative, appropriate ll1 for age. Pain: Complains of pain in low back Quality of pain is described as aching. Neuro: Gait is steady. Musculoskeletal: Circulation, motion, and sensation intact. Capillary refill < 3 seconds, Reports pain in low back. Vital Signs: 09:37 BP 122 / 74; Pulse 96; Resp 18; Temp 98.2; Pulse Ox 98% ; ko1 ED Course: 09:16 Patient arrived in ED. rg4 09:17 Rosi Daniels PA-C is PHCP. sb4 09:17 Pal Smith MD is Attending Physician. sb4 09:35 Jackie Harding RN is Primary Nurse. ll1 09:35 Arm band placed on Patient placed in an exam room, on a stretcher. ll1 09:36 Patient has correct armband on for positive identification. Bed in low position. Call ll1 light in reach. Cardiac monitoring not applicable on this patient. 09:37 Triage completed. ko1 09:46 Micky Muniz DO is Referral Physician. sb4 09:54 No provider procedures requiring assistance completed. Patient did not have IV access ll1 during this emergency room visit. 10:00 Provided Education on: n/a. ll1 Administered Medications: No medications were administered Medication: 10:00 VIS not applicable for this client. ll1 Outcome: 09:46 Discharge ordered by . sb4 09:54 Patient left the ED. ll1 09:54 Discharged to home ambulatory. ll1 09:54 Condition: stable 09:54 Discharge instructions given to patient, Instructed on discharge instructions, follow up and referral plans. no driving heavy equipment, medication usage, Demonstrated understanding of instructions, follow-up care, medications, Prescriptions given X 2. Signatures: Monica Barber rg4 Jackie Harding RN RN ll1 Franchesca Layton RN RN ko1 Rosi Daniels PA-C PA-C sb4 Corrections: (The following items were deleted from the chart) 09:37 09:37 PMHx: Anxiety; ko1 ko1 09:37 09:37 PMHx: depressive disorder; ko1 ko1 09:37 09:37 PMHx: Seizure; ko1 ko1 :37 09:37 PMHx: Bipolar disorder; ko1 ko1 09:37 09:37 PMHx: Subdural Bleed; ko1 ko1 09:37 09:37 PSHx: section; ko1 ko1
[2023-04-10 10:02] VITALS: BP 122/74; TEMP 98.2; O2SAT 98
== END 2023-04-10 09:54 | disposition home or self-care (01) ==
LOC: ER 09:02
DX: M54.50 Low back pain, unspecified (principal)
CPT/HCPCS: 99283

== ENCOUNTER 2023-04-14 18:12 | Emergency (ER) | payer OTHER ==
--- OUTSIDE RECORDS SUMMARY | 2023-04-14 18:32 | XMS REPORT | Continuity of Care Document ---
:1995 Author Organization [facility] t Address [address] [place] [address] Care Team Providers Name Role Phone Sharpless [...] Comments Source Alcohol intake 2016-07-07 2016-07-07 Current [facility] es 00:00:00 00:00:00 non-drinker of Medical nter alcohol (finding) Sex Assigned At [address] 1995 [facility] 00:00:00 00:00:00 [facility] Smoking Status Start Date Stop Date Source Never smoked tobacco [facility] Medications Ordered Filled Start Stop Current Ordering Indication Dosage Frequency Signature Comments Components Source Medication Medication Date Date Medication? Clinician (SIG) Name Name LORAZEPAM 2015-07 [facility]) 20:25: [address] LEVETIRACET 2015-07 Yes [facility] (KEPPRA [facility] ORAL) 20:25: [address] FLUOXETINE 2015-07 Yes [facility] (PROZAC 2[facility] OR[facility]) 20:25: [address] TRAZODONE 2015-07 Yes [facility] (TRAZODONE 20:25: Medical ORAL) [address] [place] [address] MECLIZINE 2016- Yes [facility] (MECLIZINE 20:25: Medical ORAL) [address] [place] [address] DIVALPROEX 2016- Yes Take [facility] SODIUM 2-[facility] (DEPAKOTE 20:25: Medical ORAL) [address] [place] [address] LORAZEPAM 2015- Yes [facility] ([facility]) 20:25: [address] LEVETIRACET 2015- Yes Take [facility] (KEPPRA 2-[facility] ORAL) 20:25: [address] FLUOXETINE 2015- Yes Take [facility] (PROZAC 2-[facility] ORAL) 20:25: [address] TRAZODONE 2016- Yes [facility] (TRAZODONE 20:25: Medical ORAL) [address] [place] [address] MECLIZINE 2015-07 Yes [facility] (MECLIZINE 20:25: Medical ORAL) [address] [place] [address] DIVALPROEX 2015- Yes Take [facility]UM 2-[facility] (DEPAKOTE 20:25: Medical ORAL) [address] [place] [address] LORAZEPAM 2015- Yes [facility] ([facility]IVAN [facility] OR[facility]) 20:25: [address] LEVETIRACET 2015- Yes Take [facility] (KEPPRA 2-[facility] ORAL) 20:25: [address] FLUOXETINE 2015- Yes Take [facility] (PROZAC 2-[facility] ORAL) 20:25: [address] TRAZODONE 2015- Yes [facility] (TRAZODONE 20:25: Medical ORAL) [address] [place] [address] MECLIZINE 2015- Yes [facility] (MECLIZINE 20:25: Medical ORAL) [address] [place] [address] DIVALPROEX 2015- Yes Take [facility]IUM 2-[facility] (DEPAKOTE 20:25: Medical ORAL) [address] [place] [address] LORAZEPAM 2015- Yes [facility] (ATIVAN [facility] OR[facility]) 20:25: [address] LEVETIRACET 2015-1 Yes Take [facility] (KEPPRA 2-[facility] ORAL) 20:25: [address] FLUOXETINE 2015- Yes Take [facility] (PROZAC 2-[facility] ORAL) 20:25: [address] TRAZODONE 2015- Yes [facility] (TRAZODONE 20:25: Medical ORAL) [address] [place] [address] MECLIZINE 2016- Yes [facility] (MECLIZINE 20:25: Medical ORAL) [address] [place] [address] DIVALPROEX 2015- Yes Take [facility]IUM 2-11 [facility] (DEPAKOTE 20:25: Medical ORAL) [address] [place] [address] LORAZEPAM 2016- Yes [facility] (ATIVAN 2[facility] OR[facility]) 20:25: [address] LEVETIRACET 2015- Yes Take [facility] (KEPPRA 2-11 [facility]. [facility] ORAL) 20:25: [address] FLUOXETINE 2015- Yes Take [facility] (PROZAC 2-[facility]. [facility] ORAL) 20:25: [address] TRAZODONE 2015- Yes Take [facility] (TRAZODONE 20:25: Medical ORAL) [address] [place] [address] MECLIZINE 2015- Yes [facility] (MECLIZINE 20:25: Medical ORAL) [address] [place] [address] DIVALPROEX 2015- Yes Take [facility] SODIUM 2-11 [facility]. [facility] (DEPAKOTE 20:25: Medical ORAL) [address] [place] [address] DIVALPROEX 2015- Yes Take [facility] SODIUM 2-11 [facility]. [facility] (DEPAKOTE 20:25: Medical ORAL) [address] [place] [address] LORAZEPAM 2015- Yes [facility] (ATIVAN [facility] OR[facility]) 20:25: [address] LEVETIRACET 2015- Yes Take [facility] (KEPPRA 2-11 [facility]. [facility] ORAL) 20:25: [address] FLUOXETINE 2015- Yes Take [facility] (PROZAC 2-11 [facility]. [facility] ORAL) 20:25: [address] TRAZODONE 2015- Yes [facility] (TRAZODONE 20:25: Medical ORAL) [address] MECLIZINE 2016- Yes [facility] by [facility] (MECLIZINE 20:25: Medical ORAL) [address] DIVALPROEX 2015- Yes Take [facility] SODIUM 2-11 [facility]. [facility] (DEPAKOTE 20:25: Medical ORAL) [address] LORAZEPAM 2015- Yes [facility] by [facility] (ATIVAN 2-[facility] ORAL) 20:25: Medical [address] [place] [address] LEVETIRACET 2015- Yes Take [facility] (KEPPRA 2-11 [facility]. [facility] ORAL) 20:25: [address] FLUOXETINE 2015- Yes Take [facility] (PROZAC 2-11 [facility]. [facility] ORAL) 20:25: [address] LORAZEPAM 2015- Yes [facility] by [facility] (ATIVAN 2-[facility] ORAL) 20:25: [address] TRAZODONE 2015- Yes [facility] (TRAZODONE 20:25: Medical ORAL) [address] [place] [address] MECLIZINE 2015-07 Yes Take [facility] (MECLIZINE 20:25: Medical ORAL) [address] [place] [address] LEVETIRACET 2015- Yes Take [facility] (KEPPRA 2-11 mouth. [facility] ORAL) 20:25: [address] FLUOXETINE 2015- Yes Take [facility] (PROZAC 2-11 [facility]. [facility] ORAL) 20:25: [address] TRAZODONE 2015- Yes Take [facility] (TRAZODONE 20:25: Medical ORAL) [address] [place] [address] MECLIZINE 2015-07 Yes [facility] (MECLIZINE 20:25: Medical ORAL) [address] [place] [address] MECLIZINE 2015- Yes [facility] (MECLIZINE 20:25: Medical ORAL) [address] [place] [address] DIVALPROEX 2015- Yes Take [facility] SODIUM 2-11 [facility]. [facility] (DEPAKOTE 20:25: Medical ORAL) [address] [place] [address] LORAZEPAM 2015- Yes [facility] (ATIVAN 2-[facility] ORAL) 20:25: [address] LEVETIRACET 2015-07 [address] [facility] (KEPPRA 2-11 mouth. [facility]ukes ORAL) 20:25: [address] FLUOXETINE 2015-07 Yes Take [facility] (PROZAC 2-11 [facility]. [facility]ukes ORAL) 20:25: [address] TRAZODONE 2015-07 Yes [facility] (TRAZODONE 20:25: Medical ORAL) [address] [place] [address] DIVALPROEX 2015-07 Yes [facility] SODIUM 2-11 [facility]. [facility] (DEPAKOTE 20:25: Medical ORAL) [address] [place] [address] Procedures This patient has no known procedures. Encounters Start End Encounter Admission Attending Care Care Encounter Source Date/Time Date/Time Type Type Clinicians Facility Department ID 2022-12-24 Outpatient [facility] [id number] [place] 14:12:39 [id number] Health Results Test Description Test Time Test [...] code = 22 U/L 8-55 N ALT) [id number] 19:54:00 Test Item Value Reference Range Interpretation Comments Chemistry (test code = LIP) 32 U/L 8-78 N Chemistry - [id number] 19:47:00 Test Item Value Reference Range Interpretation Comments Chemistry - Lactate (test code = 0.7 mmol/L 0.5-2.2 N LACTSEP-T) Chemistry - [id number] 19:44:00 Test Item Value Reference Range Interpretation Comments Chemistry - Specials POSITIVE NEGATIVE A Method of sensitivity- (test code = BHCGST) Indeter minant: results should be repea rosario after 48-72 hrs Positive: resul ts may be detected as early as 1 day after the first missed me nses. [id number] 19:35:00 Test Item Value Reference Range Interpretation [...] code = BASO#) 0.1 thou/uL 0.0-0.2 N [id number] 21:29:00 Test Item Value Reference Range Interpretation [...] code = BASO#) 0.1 thou/uL 0.0-0.2 N [id number] 20:50:00 Test Item Value Reference Range Interpretation Comments Accuchek (test code = ACU) 90 mg/dL 70-110 N Notes Date/Time Note Provider Source 2017-12-17 21:03:00-00:00 [facility] Name: PETEY OBANDO KATIE STLSJH [address] : 1995, Age: 22, [place]: [place] [address] Unit #: [id number], Status: REG [facility] [phone] Location: L D/OP Report Dict : CHAYO EVANS MD Admission Date: Report #: [id number] Discharge Date: CC: Labor and Delivery H P Labor and Delivery H P Chief complaint: decreased movement HPI: 22 y/o at 30w2d, pat ient of Dr. Cedeno at [facility] in [place], presents with decreased FM and fever. She describes a headache since yesterday and fever up to 102.6 at home. Denies VB, abd pain, LOF, UTI sx, back pain, N/V/d. ROS neg for HEENT, cv, pulm, gi, gu, neuro, psych, skin, musculoskeletal or constitutional sx other than mentioned above. OB History Details: 1 prior ELTCS at 36 weeks at [place]. Baby at 7 months due to a [...] by Chayo Evans MD> [id number] 2016-04-22 02:03:00-00:00 [facility] Name: PETEY OBANDO KYLE [facility] [id number] : 1995, Age: 20, Sex: JU[place] ANTONIO Fernández [address] Unit #: [id number], Status: DIS [place] [phone] [id number] [address] AYAZ COLE DO Admission Date: 04/19/16 Report #: [id number] Discharge Date: 04/20/16 CC: Rekha Blandon MD, [...] urinating when standing up w hile in [facility]. She has had multiple episodes similar to this over the last several d ays to weeks and has a history of seizure disorder that has been being treated. She has in the proc ess of having workup with Dr. Allen with Neurology as well as Radiological Equipment Specialist, and she also h as psychiatrist that [...] now was symptom free while in the [facility], she was discharged to the [...] [id number] Dictated Date/Time: 04/21/161914 Transcribed Date/Time: 04/22/16201 City Administrator: ROSA
[2023-04-14] MEDS ORDERED: NA CHLORIDE 0.9% 1,000 ML ONE (20:19)
[2023-04-14 20:35] LABS: Specific Gravity 1.025 (1.005-1.030); Urine Bacteria <20 /HPF (<20); Urine Bilirubin NEGATIVE (Negative); Urine Blood Negative (Negative); Urine Clarity Extremely Turbid (Clear); Urine Color Light-Yellow (Yellow); Urine Glucose NEGATIVE (Negative); Urine Mucus 2+ /HPF (None Seen); Urine Protein NEGATIVE (Negative); Urine RBC <5 /HPF (None Seen); Urine Urobilinogen Normal (Normal); Urine pH 5.5 (5.0-7.0)
[2023-04-14 20:36] LABS: Absolute Lymphocytes (CBC) 2.5 K/uL (0.7-4.9); Hematocrit 33.2 % (36.0-45.0); Lymphocytes % 36.2 % (15.3-44.8); MCV 82.5 fL (80-100); MPV 7.1 fL (7.6-11.3); Platelets 278 thou/uL (152-406); RBC Red Blood Cell Count 4.02 M/uL (3.86-4.86)
[2023-04-14] MEDS ORDERED: MECLIZINE HCL 12.5 MG TAB ONE (20:55)
[2023-04-14 22:12] LABS: Albumin 3.5 g/dL (3.4-5.0); Bilirubin Total 0.2 mg/dL (0.2-1.0); Potassium 3.6 mEq/L (3.5-5.1); Protein, Total 7.3 g/dL (6.4-8.2)
--- NOTE | 2023-04-14 22:29 | EDPHYS ---
Physician Documentation [facility] Name: Corrie Hartman Age: 27 yrs Sex: Female : 1995 Arrival Date: 04/14/2023 Time: 18:12 Bed 10 Private MD: ED Physician Jonathon Pham HPI: 04/15 00:11 This 27 yrs old Female presents to ER via Wheelchair with complaints of Dizziness. kb 00:11 The patient presents to the emergency department with nausea, vomiting. Onset: The kb symptoms/episode began/occurred 3 day(s) ago. Possible causes: unknown. The symptoms are aggravated by nothing. The symptoms are alleviated by nothing. Associated signs and symptoms: Pertinent positives: nausea, vomiting. Associated signs and symptoms:. Severity of symptoms: At their worst the symptoms were moderate in the emergency department the symptoms are unchanged. The patient has not experienced similar symptoms in the past. The patient has not recently seen a physician. Pt reports nausea and vomiting for 3 days with dizziness and weakness. 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 - Social history:: Smoking status: Reported history of juuling and/or vaping. ROS: 04/15 00:09 Constitutional: Negative for fever, chills, and weight loss, kb Abdomen/GI: Positive for nausea and vomiting, Negative for abdominal pain, diarrhea, constipation, Neuro: Positive for dizziness, weakness, All other systems are negative, Exam: 00:09 Constitutional: This is a well developed, well nourished patient who is awake, alert, kb and in no acute distress. Head/Face: Normocephalic, atraumatic. ENT: Moist Mucous membranes Cardiovascular: Regular rate Respiratory: Respirations even and unlabored. No increased work of breathing. Talking in full sentences Abdomen/GI: Soft, non-tender. No distention Skin: Warm, dry with normal turgor. Normal color. MS/ Extremity: Pulses equal, no cyanosis. Neurovascular intact. Full, normal range of motion. Neuro: Awake and alert, GCS 15, oriented to person, place, time, and situation. Moves all extremities. Normal gait. Vital Signs: 04/14 18:24 BP 124 / 73; Pulse 95; Resp 16; Temp 98.4(TE); Pulse Ox 99% on R/A; Weight 157.85 kg; me1 Height 5 ft. 4 in. ; Pain 0/10; 19:55 BP 123 / 86 Sitting; Pulse 81; eh3 19:57 BP 135 / 83 Standing; Pulse 84; eh3 19:59 BP 137 / 79; Pulse 80; Resp 18; Pulse Ox 97% on R/A; eh3 21:00 BP 117 / 78; Pulse 72; Resp 18; Pulse Ox 97% on R/A; eh3 22:27 Pulse 84; Pulse Ox 100% on R/A; as6 18:24 Body Mass Index 59.73 (157.85 kg, 162.56 cm) me1 18:24 Pain Scale: Adult me1 MDM: 18:15 Patient medically screened. kb 04/15 00:10 Differential diagnosis: Nonspecific abd pain, viral gastroenteritis, dehydration. Data kb reviewed: vital signs, nurses notes. Counseling: I had a detailed discussion with the patient and/or guardian regarding the historical points, exam findings, and any diagnostic results supporting the discharge/admit diagnosis, lab results, radiology results, the need for outpatient follow up, a family practitioner, to return to the emergency department if symptoms worsen or persist or if there are any questions or concerns that arise at home. 04/14 18:35 Order name: CBC with Diff; Complete Time: 20:39 kb 04/14 18:35 Order name: CMP; Complete Time: 22:23 kb 04/14 18:35 Order name: Lipase; Complete Time: 22:23 kb 04/14 18:35 Order name: Urinalysis w/ reflexes; Complete Time: 20:36 kb 04/14 18:35 Order name: IV Saline Lock; Complete Time: 20:33 kb 04/14 18:35 Order name: Labs collected and sent; Complete Time: 20:33 kb 04/14 18:35 Order name: Orthostatics; Complete Time: 20:33 kb Administered Medications: 04/14 19:50 Drug: NS 0.9% IV 1000 ml IV at 1 bolus Per protocol; 1000 mL bolus Route: IV; Rate: 1 eh3 bolus; Site: left antecubital; 22:34 Follow up: Response: No adverse reaction; IV Status: Completed infusion; IV Intake: as6 1000ml 20:46 Drug: Meclizine PO 25 mg PO once Route: PO; eh3 22:34 Follow up: Response: No adverse reaction as6 Disposition Summary: 04/14/23 22:28 Discharge Ordered Notes: Location: Home kb Condition: Stable kb Diagnosis - Nausea with vomiting, unspecified kb - Dizziness and giddiness kb Followup: kb - With: Emergency Department - When: As needed - Reason: Worsening of condition Followup: kb - With: Private Physician - When: 2 - 3 days - Reason: Recheck today's complaints, Continuance of care, Re-evaluation by your physician Discharge Instructions: - Discharge Summary Sheet kb - Nausea and Vomiting, Adult, [id number] kb - Dizziness, Rzog-tf-[id number] kb Forms: - Medication Reconciliation Form kb - Thank You Letter kb - Antibiotic Education kb - Prescription Opioid Use kb - Patient Portal Instructions kb - Leadership Thank You Letter kb Prescriptions: - Zofran 4 mg Oral Tablet - take 1 tablet by ORAL route every 6 hours As needed; 12 tablet; Refills: 0, kb Product Selection Permitted Signatures: Dispatcher [employer] Sonya Nance, POSTAL WORKER-C POSTAL WORKER-Mena Tiwari, AMY RN eh3 Rena Jameson RN RN me1 Montez Gloria RN as6
--- NOTE | 2023-04-14 22:29 | ER ---
Nurse's Notes [facility] Name: Corrie Hartman Age: 27 yrs Sex: Female : 1995 Arrival Date: 04/14/2023 Time: 18:12 Bed 10 Private MD: Diagnosis: Nausea with vomiting, unspecified;Dizziness and giddiness Presentation: 04/14 18:24 Chief complaint: Patient states: she was vomiting two days ago but yesterday started me1 having dizziness and blurred vision that continued to get worse. Coronavirus screen: Vaccine status: Patient reports being unvaccinated. Ebola Screen: No symptoms or risks identified at this time. Initial Sepsis Screen: Does the patient meet any 2 criteria? No. Patient's initial sepsis screen is negative. Does the patient have a suspected source of infection? No. Patient's initial sepsis screen is negative. Risk Assessment: Do you want to hurt yourself or someone else? Patient reports no desire to harm self or others. Onset of symptoms was April 12, 2023. 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 - Social history:: Smoking status: Reported history of juuling and/or vaping. Screenin:30 [facility] ED Fall Risk Assessment (Adult) Score/Fall Risk Level 0 - 2 = Low Risk. Abuse eh3 screen: Denies threats or abuse. Denies injuries from another. Nutritional screening: No deficits noted. Tuberculosis screening: No symptoms or risk factors identified. Assessment: 19:30 General: Appears in no apparent distress. uncomfortable, Behavior is calm, cooperative, eh3 appropriate for age. Pain: Denies pain. Neuro: Level of Consciousness is awake, alert, obeys commands, Oriented to person, place, time, situation, Reports dizziness. Cardiovascular: Capillary refill < 3 seconds Patient's skin is warm and dry. Respiratory: Airway is patent Respiratory effort is even, unlabored, Respiratory pattern is regular, symmetrical. GI: Abdomen is round non-distended. Derm: Skin is pink, warm \T\ dry. Musculoskeletal: Circulation, motion, and sensation intact. 20:30 Reassessment: Patient appears in no apparent distress at this time. Patient and/or eh3 family updated on plan of care and expected duration. Pain level reassessed. Patient is alert, oriented x 3, equal unlabored respirations, skin warm/dry/pink. Vital Signs: 18:24 BP 124 / 73; Pulse 95; Resp 16; Temp 98.4(TE); Pulse Ox 99% on R/A; Weight 157.85 kg; me1 Height 5 ft. 4 in. ; Pain 0/10; 19:55 BP 123 / 86 Sitting; Pulse 81; eh3 19:57 BP 135 / 83 Standing; Pulse 84; eh3 19:59 BP 137 / 79; Pulse 80; Resp 18; Pulse Ox 97% on R/A; eh3 21:00 BP 117 / 78; Pulse 72; Resp 18; Pulse Ox 97% on R/A; eh3 22:27 Pulse 84; Pulse Ox 100% on R/A; as6 18:24 Body Mass Index 59.73 (157.85 kg, 162.56 cm) me1 18:24 Pain Scale: Adult va1 ED Course: 18:14 Patient arrived in ED. mr 18:15 Sonya Davies FNP-C [facility]. kb 18:15 Jonathon Pham MD is Attending Physician. kb 18:28 Triage completed. me1 18:28 Arm band placed on Patient placed in waiting room. me1 19:30 Patient has correct armband on for positive identification. Bed in low position. Call eh3 light in reach. Side rails up X2. Provided Education on: Use of call ospina. Pulse ox on. NIBP on. 19:30 Inserted saline lock: 22 gauge in left antecubital area, using aseptic technique. Blood eh3 collected. 19:31 Mena Swartz, AYM is Primary Nurse. eh3 22:33 No provider procedures requiring assistance completed. IV discontinued, intact, as6 bleeding controlled, No redness/swelling at site. Pressure dressing applied. Administered Medications: 19:50 Drug: NS 0.9% IV 1000 ml IV at 1 bolus Per protocol; 1000 mL bolus Route: IV; Rate: 1 eh3 bolus; Site: left antecubital; 22:34 Follow up: Response: No adverse reaction; IV Status: Completed infusion; IV Intake: as6 1000ml 20:46 Drug: Meclizine PO 25 mg PO once Route: PO; eh3 22:34 Follow up: Response: No adverse reaction as6 Medication: 22:28 VIS not applicable for this client. as6 Intake: 22:34 IV: 1000ml; Total: 1000ml. as6 Outcome: 22:28 Discharged to home ambulatory, as6 22:28 Condition: stable 22:28 Discharge ordered by . traci 22:33 Discharge instructions given to patient, Instructed on discharge instructions, follow as6 up and referral plans. medication usage, Demonstrated understanding of instructions, follow-up care, medications, Prescriptions given X 1, 22:34 Patient left the ED. as6 Signatures: Sonya Davies, IT NETWORK ADMINISTRATOR-C IT NETWORK ADMINISTRATOR-Ckb Ginny Mcdowell, Reg Reg Montez Turner RN RN as6 Mena Swartz, RN RN 3 Rena Jameson RN RN va1
[2023-04-15 00:33] VITALS: TEMP 98.4
[2023-04-15 00:37] VITALS: BP 117/78
[2023-04-15 00:38] VITALS: O2SAT 100
== END 2023-04-14 22:34 | disposition home or self-care (01) ==
LOC: ER 18:12
DX: R11.2 Nausea with vomiting, unspecified (principal); R42 Dizziness and giddiness
CPT/HCPCS: 85025; 81001; 36415; 83690; 80053; J8597; J7030

== ENCOUNTER → 2023-09-17 | Emergency (ER) | payer OTHER ==
[~2023-09-17] MED LIST: NA CHLORIDE 0.9% 1,000 ML ONE; ONDANSETRON 4 MG/2 ML VIAL ONE
[2023-09-17 10:21] LABS: Absolute Lymphocytes (CBC) 1.4 K/uL (0.7-4.9); Hematocrit 37.6 % (36.0-45.0); Lymphocytes % 20.5 % (15.3-44.8); MCV 82.2 fL (80-100); MPV 6.8 fL (7.6-11.3); Platelets 370 thou/uL (152-406); RBC Red Blood Cell Count 4.57 M/uL (3.86-4.86)
[2023-09-17 10:38] LABS: Albumin 3.5 g/dL (3.4-5.0); Bilirubin Total 0.3 mg/dL (0.2-1.0); Potassium 4.1 mEq/L (3.5-5.1)
[2023-09-17 10:44] LABS: SARS-CoV-2 Antigen Rapid Res Negative (Negative)
[2023-09-17 12:38] LABS: Urine Bacteria 20-50 /HPF (<20); Urine Mucus Slight /HPF (None Seen); Urine RBC <5 /HPF (None Seen)
[2023-09-17 12:40] LABS: Specific Gravity 1.027 (1.005-1.030)
[2023-09-17 12:43] LABS: Specific Gravity 1.027 (1.005-1.030); Urine Bilirubin NEGATIVE (Negative); Urine Blood Trace (Negative); Urine Clarity Turbid (Clear); Urine Color Light-Yellow (Yellow); Urine Glucose NEGATIVE (Negative)
[2023-09-17 12:44] LABS: Urine Ascorbic Acid Negative (Negative); Urine Protein Negative (Negative); Urine Urobilinogen Normal (Normal)
--- NOTE | 2023-09-17 12:57 | ER ---
Nurse's Notes [facility] Name: Corrie Hartman Age: 27 yrs Sex: Female : 1995 Arrival Date: 09/17/2023 Time: 09:34 Bed 3 Private MD: Diagnosis: Diarrhea, unspecified;Vomiting, unspecified;UTI/ Urinary tract infection, site not specified Presentation: 09/17 09:39 Chief complaint: Patient states: severe adb pain since last night, vomiting and iw diarrhea today, yesterday my kid had diarrhea. Coronavirus screen: Client presents with at least one sign or symptom that may indicate coronavirus-19. Ebola Screen: Patient negative for fever greater than or equal to 101.5 degrees Fahrenheit, and additional compatible Ebola Virus Disease symptoms Patient denies exposure to infectious person. Patient denies travel to an Ebola-affected area in the 21 days before illness onset. No symptoms or risks identified at this time. Initial Sepsis Screen: Does the patient meet any 2 criteria? No. Patient's initial sepsis screen is negative. Does the patient have a suspected source of infection? No. Patient's initial sepsis screen is negative. Risk Assessment: Do you want to hurt yourself or someone else? Patient reports no desire to harm self or others. Onset of symptoms was September 16, 2023. 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 - Social history:: Smoking status: Reported history of juuling and/or vaping. - Family history:: not pertinent. - Hospitalizations: : No recent hospitalization is reported. Screenin:20 [facility] ED Fall Risk Assessment (Adult) Score/Fall Risk Level 0 - 2 = Low Risk nj1 Oriented to surroundings, Maintained a safe environment, Hourly rounding (assess needs \T\ fall precautionary measures) done. 10:20 Abuse screen: Denies threats or abuse. Denies injuries from another. Nutritional nj1 screening: No deficits noted. Tuberculosis screening: No symptoms or risk factors identified. Assessment: 10:20 General: Appears in no apparent distress. comfortable, Behavior is calm, cooperative, nj1 appropriate for age. Pain: Complains of pain in abdomen Pain currently is 9 out of 10 on a pain scale. Neuro: No deficits noted. Cardiovascular: No deficits noted. Patient's skin is warm and dry. Respiratory: No deficits noted. Airway is patent Respiratory effort is even, unlabored. GI: Abdomen is round obese, Reports upper abdominal pain, Patient currently denies nausea. 11:44 Reassessment: Patient appears in no apparent distress at this time. Patient and/or nj1 family updated on plan of care and expected duration. Pain level reassessed. Patient is alert, oriented x 3, equal unlabored respirations, skin warm/dry/pink. Vital Signs: 09:39 BP 136 / 99; Pulse 110; Resp 18; Temp 98.4; Pulse Ox 96% ; Weight 158.76 kg; Height 5 iw ft. 4 in. ; Pain 9/10; 10:20 Pulse 93; Resp 18; Pulse Ox 96% ; Pain 9/10; nj1 12:11 BP 126 / 69; Pulse 92; Resp 16; Pulse Ox 98% on R/A; me1 09:39 Body Mass Index 60.08 (158.76 kg, 162.56 cm) iw 09:39 Pain Scale: Adult iw 10:20 Pain Scale: Adult nj1 ED Course: 09:36 Patient arrived in ED. ra3 09:36 Zacarias Hendricks MD is Attending Physician. rn 09:40 Triage completed. iw 09:42 Arm band placed on. iw 09:48 Julissa Lovelace, AMY is Primary Nurse. nj1 10:10 Inserted saline lock: 22 gauge in left antecubital area, using aseptic technique. Blood ds4 collected. 10:20 Patient has correct armband on for positive identification. Bed in low position. Call il1 light in reach. 10:20 Provided Education on: call light, fall precautions. nj1 12:22 Test, Urine Sent. me1 12:22 Urinalysis w/ reflexes Sent. me1 13:00 No provider procedures requiring assistance completed. me1 13:06 IV discontinued, intact, bleeding controlled, No redness/swelling at site. Pressure me1 dressing applied. Administered Medications: : Drug: NS 0.9% IV 1000 ml IV at 1 bolus Per protocol; 1000 mL bolus Route: IV; Rate: 1 nj1 bolus; Site: left antecubital; 13:00 Follow up: IV Status: Completed infusion me1 10:22 Drug: Ondansetron IVP 4 mg IVP once; over 2 minutes Route: IVP; Site: left antecubital; nj1 12:03 Follow up: Response: No adverse reaction; Nausea is decreased me1 Medication: 13:00 VIS not applicable for this client. me1 Outcome: 12:56 Discharge ordered by . rn 13:06 Discharged to home ambulatory, mn1 13:06 Condition: stable 13:06 Discharge instructions given to patient, Instructed on discharge instructions, follow up and referral plans. medication usage, Demonstrated understanding of instructions, follow-up care, medications, Prescriptions given X 2, 13:07 Patient left the ED. me1 Signatures: Joselyn Lopez RN AMY Zacarias Hendricks MD MD rn Swanson, Donovan ds4 Julissa Lovelace RN RN nj1 Rena Jameson RN RN me1 Chelsey Adan 3
--- NOTE | 2023-09-17 12:57 | EDPHYS ---
Physician Documentation [facility] Name: Corrie Hartman Age: 27 yrs Sex: Female : 1995 Arrival Date: 09/17/2023 Time: 09:34 Bed 3 Private MD: ED Physician Zacarias Hendricks HPI: 09/17 10:26 This 27 yrs old Female presents to ER via Ambulatory with complaints of Vomiting, rn stomach pain. 10:26 The patient presents to the emergency department with nausea, vomiting, diarrhea, rn abdominal pain. Onset: The symptoms/episode began/occurred last night. Possible causes: unknown. The symptoms are aggravated by nothing. The symptoms are alleviated by nothing. Associated signs and symptoms: Pertinent positives: abdominal pain, diarrhea, nausea, vomiting, Pertinent negatives: fever, GI bleeding. Severity of symptoms: At their worst the symptoms were moderate in the emergency department the symptoms are unchanged. The patient has not experienced similar symptoms in the past. The patient has not recently seen a physician. 10:26 Patient reports nausea vomiting and diarrhea that began last night. Son started with rn diarrhea yesterday. No blood in stool. No chronic abdominal problems.. 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 - Social history:: Smoking status: Reported history of juuling and/or vaping. - Family history:: not pertinent. - Hospitalizations: : No recent hospitalization is reported. ROS: 12:55 Constitutional: Negative for fever, chills, and weight loss, Cardiovascular: Negative rn for chest pain, palpitations, and edema, Respiratory: Negative for shortness of breath, cough, wheezing, and pleuritic chest pain, Abdomen/GI: Positive for lower abdominal pain and nausea/vomiting/diarrhea MS/Extremity: Negative for injury and deformity, Neuro: Negative for headache, weakness, numbness, tingling, and seizure, Exam: 12:55 Constitutional: This is a well developed, well nourished patient who is awake, alert, rn and in no acute distress. Cardiovascular: Regular rate and rhythm. No pulse deficits. Abdomen/GI: Soft, nontender, no guarding or rebound Back: No spinal tenderness. No costovertebral tenderness. Full range of motion. Vital Signs: 09:39 BP 136 / 99; Pulse 110; Resp 18; Temp 98.4; Pulse Ox 96% ; Weight 158.76 kg; Height 5 iw ft. 4 in. ; Pain 9/10; 10:20 Pulse 93; Resp 18; Pulse Ox 96% ; Pain 9/10; nj1 12:11 BP 126 / 69; Pulse 92; Resp 16; Pulse Ox 98% on R/A; me1 09:39 Body Mass Index 60.08 (158.76 kg, 162.56 cm) iw 09:39 Pain Scale: Adult iw 10:20 Pain Scale: Adult nj1 MDM: 09:36 Patient medically screened. rn 12:55 Differential diagnosis: viral gastroenteritis, gastroenteritis, UTI. Data reviewed: rn vital signs, nurses notes, lab test result(s), and as a result, I will discharge patient. Special discussion: Based on the patient's Hx, exam, and Dx evaluation, there is no indication for emergent surgery or inpatient Tx. It is understood by the patient/guardian that if the Sx's persist or worsen they need to return immediately for re-evaluation. I discussed with the patient/guardian in detail that at this point there is no indication for admission to the hospital. It is understood, however, that if the symptoms persist or worsen the patient needs to return immediately for re-evaluation. ED course: I have personally reviewed all of the results, including but not limited to blood tests and imaging deemed necessary to safely discharge this patient at this time. All results given to and printed out for patient. I personally went over all the results with the patient and answered all questions. Patient will follow-up with PCP and or specialist as discussed. Return precautions given and understood.. 09/17 09:52 Order name: CBC with Diff; Complete Time: 10:50 rn 09/17 09:52 Order name: CMP; Complete Time: 10:50 rn 09/17 09:52 Order name: Lipase; Complete Time: 10:50 rn 09/17 09:52 Order name: Test, Urine; Complete Time: 12:55 rn 09/17 09:52 Order name: Urinalysis w/ reflexes; Complete Time: 12:55 rn 09/17 09:52 Order name: Flu; Complete Time: 11:44 rn 09/17 09:52 Order name: SARS RAPID; Complete Time: 10:50 rn 09/17 09:52 Order name: IV Saline Lock; Complete Time: 10:10 rn 09/17 09:52 Order name: Labs collected and sent; Complete Time: 10:10 rn Administered Medications: 10:22 Drug: NS 0.9% IV 1000 ml IV at 1 bolus Per protocol; 1000 mL bolus Route: IV; Rate: 1 nj1 bolus; Site: left antecubital; 13:00 Follow up: IV Status: Completed infusion me1 10:22 Drug: Ondansetron IVP 4 mg IVP once; over 2 minutes Route: IVP; Site: left antecubital; nj1 12:03 Follow up: Response: No adverse reaction; Nausea is decreased me1 Disposition Summary: 09/17/23 12:56 Discharge Ordered Notes: Location: Home rn Problem: new rn Symptoms: have improved rn Condition: Stable rn Diagnosis - Diarrhea, unspecified rn - Vomiting, unspecified rn - UTI/ Urinary tract infection, site not specified rn Followup: rn - With: Private Physician - When: As needed - Reason: Recheck today's complaints, Re-evaluation by your physician Discharge Instructions: - Discharge Summary Sheet rn - Diarrhea, Adult rn - Urinary Tract Infection, Adult rn Forms: - Medication Reconciliation Form rn - Thank You Letter rn - 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
[2023-09-17 13:15] VITALS: BP 126/69; TEMP 98.4; O2SAT 98
== END ==
LOC: ER 09:34
DX: N39.0 Urinary tract infection, site not specified (principal); R19.7 Diarrhea, unspecified; Z11.52 Encounter for screening for COVID-19
CPT/HCPCS: 85025; 81001; 36415; 81025; 83690; 80053; 87804 ×2; 87811; J2405; J7030

== ENCOUNTER → 2023-10-10 | Emergency (ER) | payer OTHER ==
[~2023-10-10] MED LIST changes: +DIAZEPAM 5 MG TABLET ONE; -NA CHLORIDE 0.9% 1,000 ML ONE; +ONDANSETRON 4 MG (ODT) TAB ONE; -ONDANSETRON 4 MG/2 ML VIAL ONE; +PROMETHAZINE 25 MG TABLET ONE
[2023-10-10 04:20] LABS: Specific Gravity > 1.030 (1.005-1.030)
--- NOTE | 2023-10-10 05:18 | EDPHYS ---
Physician Documentation [facility] Name: Corrie Hartman Age: 27 yrs Sex: Female : 1995 Arrival Date: 10/10/2023 Time: 03:32 Bed 12 Private MD: ED Physician Bryant Castro HPI: 10/09 03:47 This 27 yrs old Female presents to ER via Unassigned with complaints of Acute sp4 vertigo. . 03:55 27-year-old female presents with EMS for complaint of acute vertigo associated with sp4 vomiting. . Patient reports history of vaping. 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 Last tetanus immunization: > 10 years ago Flu vaccine is not up to date. - Family history:: not pertinent. - Social history:: Smoking status: Reported history of juuling and/or vaping. Patient/guardian denies using alcohol, street drugs. ROS: 03:55 Constitutional: Negative for fever, chills, and weight loss, sp4 03:55 All other systems are negative, Exam: 03:55 Constitutional: This is a well developed, well nourished patient who is awake, alert, sp4 and in no acute distress. Head/Face: Normocephalic, atraumatic. Eyes: Pupils equal round and reactive to light, extra-ocular motions intact. Lids and lashes normal. Conjunctiva and sclera are not injected. Cornea within normal limits. Periorbital areas with no swelling, redness, or edema. ENT: Nares patent. No nasal discharge, no septal abnormalities noted. Tympanic membranes are normal and external auditory canals are clear. Oropharynx with no redness, swelling, or masses, exudates, or evidence of obstruction, uvula midline. Mucous membranes moist. Neck: Trachea midline, no thyromegaly or masses palpated, and no cervical lymphadenopathy. Supple, full range of motion without nuchal rigidity, or vertebral point tenderness. Chest/axilla: Normal chest wall appearance and motion. Nontender with no deformity. No lesions are appreciated. Cardiovascular: Regular rate and rhythm with a normal S1 and S2. No gallops, murmurs, or rubs. Normal PMI, no JVD. No pulse deficits. Respiratory: Lungs have equal breath sounds bilaterally, clear to auscultation and percussion. No rales, rhonchi or wheezes noted. No increased work of breathing, no retractions or nasal flaring. Abdomen/GI: Soft, with normal bowel sounds. No distension or tympany. No guarding or rebound. No evidence of tenderness throughout. Back: No spinal tenderness. No costovertebral tenderness. Skin: Warm, dry with normal turgor. Normal color with no rashes, no lesions, and no evidence of cellulitis. MS/ Extremity: Pulses equal, no cyanosis. Neurovascular intact. Full, normal range of motion. Neuro: Awake and alert, GCS 15, oriented to person, place, time, and situation. Cranial nerves II-XII grossly intact. Motor strength 5/5 in all extremities. Sensory grossly intact. Psych: Awake, alert, with orientation to person, place and time. Behavior, mood, and affect are within normal limits Vital Signs: 03:44 BP 120 / 65; Pulse 89; Resp 16; Temp 97.9; Pulse Ox 96% on R/A; Pain 0/10; pf1 03:44 Weight 158.7 kg; Height 5 ft. 4 in. ; pf1 04:30 BP 110 / 79; Pulse 80; Resp 16; Pulse Ox 100% on R/A; pf1 05:25 BP 113 / 72; Pulse 82; Resp 16; Temp 98.2; Pulse Ox 99% on R/A; Pain 0/10; pf1 03:44 Body Mass Index 60.06 (158.70 kg, 162.56 cm) pf1 03:44 Pain Scale: Adult pf1 05:25 Pain Scale: Adult pf1 MDM: 03:47 Patient medically screened. sp4 03:56 Data reviewed: vital signs, nurses notes, EMS record, lab test result(s). sp4 05:19 Differential Diagnosis Central Vertigo, Positional vertigo, peripheral vertigo . sp4 Consideration of Admission/Observation Escalation of care including admission/observation considered. ED course: test negative. Patient improved, stable for discharge home. . 10/09 03:48 Order name: Test, Urine; Complete Time: 05:10 sp4 Administered Medications: 04:40 Drug: Diazepam PO 5 mg PO once Route: PO; pf1 05:20 Follow up: Response: No adverse reaction; Marked relief of symptoms pf1 04:40 Drug: Promethazine PO 25 mg PO once Route: PO; pf1 05:20 Follow up: Response: No adverse reaction; Marked relief of symptoms; Nausea is decreasedpf1 04:40 Drug: Ondansetron PO 4 mg PO once Route: PO; pf1 05:20 Follow up: Response: No adverse reaction; Marked relief of symptoms; Nausea is decreasedpf1 Disposition Summary: 10/10/23 05:17 Discharge Ordered Notes: Location: Home sp4 Problem: new sp4 Symptoms: have improved sp4 Condition: Stable sp4 Diagnosis - Other peripheral vertigo sp4 - Acute peripheral positional vertigo sp4 Followup: sp4 - With: Private Physician - When: 7 - 10 days - Reason: Recheck today's complaints Discharge Instructions: - Discharge Summary Sheet sp4 - Benign Positional Vertigo sp4 Forms: - Patient Portal Instructions sp4 Prescriptions: - Valium 5 mg Oral tablet - take 1 tablet ORAL route every 8 hours As needed PRN anxiety; 20 tablet; sp4 Refills: 0, Product Selection Permitted - ondansetron 8 mg Oral Tablet,disintegrating - take 1 tablet ORAL route every 8 hours PRN nausea; 30 tablet; Refills: 0, sp4 Product Selection Permitted Signatures: Dispatcher [employer] Salina Nguyễn RN RN pf1 Bryant Castro MD MD sp4
--- NOTE | 2023-10-10 05:28 | ER ---
Nurse's Notes [facility] Name: Corrie Hartman Age: 27 yrs Sex: Female : 1995 Arrival Date: 10/10/2023 Time: 03:32 Bed 12 Private MD: Diagnosis: Other peripheral vertigo;Acute peripheral positional vertigo Presentation: 10/09 03:44 Chief complaint: Patient states: nausea,vomiting with dizziness,onset 2100. pf1 03:44 Coronavirus screen: Vaccine status: Patient reports being unvaccinated. Client denies pf1 travel out of the [place] in the last 14 days. Client presents with at least one sign or symptom that may indicate coronavirus-19. Standard/surgical mask placed on the client. Ebola Screen: Patient negative for fever greater than or equal to 101.5 degrees Fahrenheit, and additional compatible Ebola Virus Disease symptoms. Initial Sepsis Screen: Does the patient meet any 2 criteria? No. Patient's initial sepsis screen is negative. Does the patient have a suspected source of infection? No. Patient's initial sepsis screen is negative. Risk Assessment: Do you want to hurt yourself or someone else? Patient reports no desire to harm self or others. Onset of symptoms was October 09, 2023 at 21:00. 03:44 Method Of Arrival: EMS: [facility] pf1 03:44 Acuity: MARKO 3 pf1 03:44 Onset of symptoms was October 09, 2023. pf1 Triage Assessment: 03:44 General: Appears in no apparent distress. comfortable, obese, well groomed, well pf1 developed, Behavior is calm, cooperative, appropriate for age, quiet. 03:44 Pain: Denies pain. EENT: No deficits noted. Neuro: Reports dizziness, since 2099 pf1 tonight. GI: Abdomen is round non-distended, Reports nausea, vomiting. 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 Last tetanus immunization: > 10 years ago Flu vaccine is not up to date. - Family history:: not pertinent. - Social history:: Smoking status: Reported history of juuling and/or vaping. Patient/guardian denies using alcohol, street drugs. Screenin/14 03:44 [facility] ED Fall Risk Assessment (Adult) History of falling in the last 3 months, pf1 including since admission No falls in past 3 months (0 pts) Confusion or Disorientation No (0 pts) Intoxicated or Sedated No (0 pts) Impaired Gait Mobility Assist Device Used No (0 pt) Altered Elimination No (0 pt) Score/Fall Risk Level 0 - 2 = Low Risk Oriented to surroundings, Maintained a safe environment, Educated pt \T\ family on fall prevention, incl call for assistance when getting out of bed, Assessed \T\ reinforced patient's understanding of fall precautions, Provided non-skid footwear, Hourly rounding (assess needs \T\ fall precautionary measures) done, Used ambulatory aids as needed (educated on \T\ assisted with), Used gait belt as appropriate. 03:44 Abuse screen: Denies threats or abuse. Nutritional screening: No deficits noted. pf1 Tuberculosis screening: No symptoms or risk factors identified. Assessment: 10/09 03:44 General: Appears in no apparent distress. comfortable, obese, well groomed, well pf1 developed, Behavior is calm, cooperative, appropriate for age, quiet. 03:44 Pain: Denies pain. Neuro: Reports dizziness, since 2100 tonight. Cardiovascular: pf1 Capillary refill < 3 seconds Patient's skin is warm and dry. Respiratory: No deficits noted. Airway is patent Respiratory effort is even, unlabored, Respiratory pattern is regular, symmetrical, Breath sounds are clear bilaterally. GI: Abdomen is round non-distended, Bowel sounds present X 4 quads. Reports nausea, vomiting. : No deficits noted. No signs and/or symptoms were reported regarding the genitourinary system. EENT: No deficits noted. No signs and/or symptoms were reported regarding the EENT system. Derm: No deficits noted. No signs and/or symptoms reported regarding the dermatologic system. Musculoskeletal: No deficits noted. No signs and/or symptoms reported regarding the musculoskeletal system. 04:30 Reassessment: Patient appears in no apparent distress at this time. Patient and/or pf1 family updated on plan of care and expected duration. Pain level reassessed. Patient is alert, oriented x 3, equal unlabored respirations, skin warm/dry/pink. Patient states feeling better. Patient states symptoms have improved. Vital Signs: 03:44 BP 120 / 65; Pulse 89; Resp 16; Temp 97.9; Pulse Ox 96% on R/A; Pain 0/10; pf1 03:44 Weight 158.7 kg; Height 5 ft. 4 in. ; pf1 04:30 BP 110 / 79; Pulse 80; Resp 16; Pulse Ox 100% on R/A; pf1 05:25 BP 113 / 72; Pulse 82; Resp 16; Temp 98.2; Pulse Ox 99% on R/A; Pain 0/10; pf1 03:44 Body Mass Index 60.06 (158.70 kg, 162.56 cm) pf1 03:44 Pain Scale: Adult pf1 05:25 Pain Scale: Adult pf1 ED Course: 03:44 Patient arrived in ED. ty 03:44 Patient has correct armband on for positive identification. Placed in gown. Bed in low pf1 position. Call light in reach. Side rails up X 1. 03:44 Arm band placed on right wrist. pf1 03:44 Door closed. Lights dimmed. Warm blanket given. pf1 03:46 Bryant Castro MD is Attending Physician. sp4 05:00 No provider procedures requiring assistance completed. pf1 05:00 Patient did not have IV access during this emergency room visit. pf1 05:27 Provided Education on: prescriptions. pf1 07:48 Triage completed. pf1 Administered Medications: 04:40 Drug: Diazepam PO 5 mg PO once Route: PO; pf1 05:20 Follow up: Response: No adverse reaction; Marked relief of symptoms pf1 04:40 Drug: Promethazine PO 25 mg PO once Route: PO; pf1 05:20 Follow up: Response: No adverse reaction; Marked relief of symptoms; Nausea is decreasedpf1 04:40 Drug: Ondansetron PO 4 mg PO once Route: PO; pf1 05:20 Follow up: Response: No adverse reaction; Marked relief of symptoms; Nausea is decreasedpf1 Medication: 05:00 VIS not applicable for this client. pf1 Outcome: 05:17 Discharge ordered by . sp4 05:26 Discharged to home ambulatory, with family, pf1 05:26 Condition: improved 05:26 Discharge instructions given to patient, Instructed on discharge instructions, follow up and referral plans. Demonstrated understanding of instructions, follow-up care, medications, Prescriptions given X 2, 05:27 Patient left the ED. pf1 Signatures: Salina Saucedo RN RN pf1 Bryant Castro MD MD sp4 Mayo Vargas
== END ==
LOC: ER 03:32
DX: H81.399 Other peripheral vertigo, unspecified ear (principal); H81.10 Benign paroxysmal vertigo, unspecified ear
CPT/HCPCS: 81025; 99284; Q0169; Q0162

== ENCOUNTER 2023-11-30 19:43 | Emergency (ER) | payer OTHER ==
[2023-11-30] MEDS ORDERED: LORAZEPAM 1 MG TABLET ONE (19:58)
--- NOTE | 2023-11-30 20:02 | ER ---
Nurse's Notes [facility] Name: Corrie Hartman Age: 28 yrs Sex: Female : 1995 Arrival Date: 11/30/2023 Time: 19:43 Bed Waiting Private MD: Diagnosis: Patient's unintentional underdosing of medication regimen for other reason-Medication refill Presentation: 11/29 19:51 Chief complaint: Patient states: I loss my clonazepam 2 days ago, and havnet taken any bm8 since then. I feel dizzy blurry vision, just feel like crap. I think I am withdrawing from it. Coronavirus screen: At this time, the client does not indicate any symptoms associated with coronavirus-19. Ebola Screen: Patient negative for fever greater than or equal to 101.5 degrees Fahrenheit, and additional compatible Ebola Virus Disease symptoms Patient denies exposure to infectious person. Patient denies travel to an Ebola-affected area in the 21 days before illness onset. No symptoms or risks identified at this time. Initial Sepsis Screen: Does the patient meet any 2 criteria? No. Patient's initial sepsis screen is negative. Does the patient have a suspected source of infection? No. Patient's initial sepsis screen is negative. Risk Assessment: Do you want to hurt yourself or someone else? Patient reports no desire to harm self or others. Onset of symptoms was November 28, 2023. 19:51 Method Of Arrival: Ambulatory bm8 19:51 Acuity: MARKO 4 bm8 Triage Assessment: 19:54 General: Appears in no apparent distress. uncomfortable, Behavior is calm, cooperative, bm8 appropriate for age. Pain: Denies pain. EENT: No deficits noted. No signs and/or symptoms were reported regarding the EENT system. Neuro: No deficits noted. Level of Consciousness is awake, alert, obeys commands, Oriented to person, place, time, situation, Appropriate for age. Cardiovascular: No deficits noted. Denies chest pain, Capillary refill < 3 seconds Patient's skin is warm and dry. Respiratory: No deficits noted. Airway is patent Trachea midline Respiratory effort is even, unlabored, Respiratory pattern is regular, symmetrical. GI: No deficits noted. No signs and/or symptoms were reported involving the gastrointestinal system. : No deficits noted. No signs and/or symptoms were reported regarding the genitourinary system. Derm: No deficits noted. No signs and/or symptoms reported regarding the dermatologic system. Musculoskeletal: No deficits noted. No signs and/or symptoms reported regarding the musculoskeletal system. 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 - Infectious Disease History:: Denies. - Social history:: Smoking status: Reported history of juuling and/or vaping. - Family history:: not pertinent. - Hospitalizations: : No recent hospitalization is reported. Screenin:56 [facility] ED Fall Risk Assessment (Adult) History of falling in the last 3 months, bm8 including since admission No falls in past 3 months (0 pts) Confusion or Disorientation No (0 pts) Intoxicated or Sedated No (0 pts) Impaired Gait No (0 pts) Mobility Assist Device Used No (0 pt) Altered Elimination No (0 pt) Score/Fall Risk Level 0 - 2 = Low Risk Oriented to surroundings, Maintained a safe environment, Educated pt \T\ family on fall prevention, incl call for assistance when getting out of bed. Abuse screen: Denies threats or abuse. Denies injuries from another. Nutritional screening: No deficits noted. Tuberculosis screening: No symptoms or risk factors identified. Assessment: 19:56 Reassessment: see triage note. bm8 Vital Signs: 19:51 BP 145 / 100; Pulse 99; Resp 18; Temp 98; Pulse Ox 100% on R/A; Weight 154.6 kg; Height bm8 5 ft. 4 in. ; Pain 0/10; 19:51 Body Mass Index 58.50 (154.60 kg, 162.56 cm) bm8 19:51 Pain Scale: Adult bm8 Nelly Coma Score: 19:56 Eye Response: spontaneous(4). Motor Response: obeys commands(6). Verbal Response: bm8 oriented(5). Total: 15. ED Course: 19:44 Patient arrived in ED. rg4 19:47 Zacarias Hendricks MD is Attending Physician. rn 19:54 Triage completed. bm8 19:54 Arm band placed on right wrist. Patient placed in waiting room. bm8 19:56 Patient has correct armband on for positive identification. Adult w/ patient. Pulse ox bm8 on. NIBP on. Verbal reassurance given. 19:56 No provider procedures requiring assistance completed. Patient did not have IV access bm8 during this emergency room visit. 20:06 Provided Education on: post er care. bm8 20:07 Calvin Gomez, RN is Primary Nurse. bm8 11/30 09:51 [facility] called to inform the physician that pt had 30 clonazepam filled on november. prescription was cancelled by dr Hirsch. Administered Medications: 11/29 20:05 Drug: LORazepam PO 1 mg PO once Route: PO; bm8 20:05 Follow up: Response: Medication administered at discharge. bm8 Medication: 19:56 VIS not applicable for this client. bm8 Outcome: 20:02 Discharge ordered by . rn 20:06 Discharged to home ambulatory, bm8 20:06 Condition: stable 20:06 Discharge instructions given to patient, family, Instructed on discharge instructions, follow up and referral plans. safety practices, Demonstrated understanding of instructions, follow-up care, medications, Prescriptions given X 1, 20:07 Patient left the ED. bm8 Signatures: Carolina Simental Roman, MD MD rn Garcia, Rubi rg4 Calvin Gomez RN RN bm8
--- NOTE | 2023-11-30 20:02 | EDPHYS ---
Physician Documentation [facility] Name: Corrie Hartman Age: 28 yrs Sex: Female : 1995 Arrival Date: 11/30/2023 Time: 19:43 Bed Waiting Private MD: ED Physician Zacarias Hendricks HPI: 11/29 19:56 This 28 yrs old Female presents to ER via Ambulatory with complaints of Withdrawal. rn 19:56 The patient presents to the emergency department requesting refill(s) for: Klonopin. rn The patient has experienced similar episodes in the past. The patient has not recently seen a physician. Patient reports ran out of clonazepam 2 days ago. Since then has been feeling palpitations, lightheaded, not feeling well, feels like he is withdrawing. She was prescribed clonazepam by her psychiatrist. Takes 1 tablet twice a day and prescribed 60 a month ago. Denies overdosing. Denies suicidal ideations. Just feels anxious and has severe panic attacks per patient. Patient comes in for refill of medication.. 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 - Infectious Disease History:: Denies. - Social history:: Smoking status: Reported history of juuling and/or vaping. - Family history:: not pertinent. - Hospitalizations: : No recent hospitalization is reported. ROS: 19:56 Constitutional: Negative for fever, chills, and weight loss, Cardiovascular: Positive rn for palpitations Respiratory: Negative for shortness of breath, cough, wheezing, and pleuritic chest pain, Abdomen/GI: Positive for nausea, negative for abdominal pain MS/Extremity: Negative for injury and deformity, Skin: Negative for injury, rash, and discoloration, Neuro: Positive for generalized weakness Psych: Positive for anxiety, negative for suicidal ideation or hallucination Exam: 19:56 Constitutional: This is a well developed, well nourished patient who is awake, alert, rn and in no acute distress. Cardiovascular: Regular rate and rhythm. No pulse deficits. Respiratory: No increased work of breathing, no retractions or nasal flaring. MS/ Extremity: Pulses equal, no cyanosis. Neuro: Awake and alert, GCS 15, oriented to person, place, time, and situation. Vital Signs: 19:51 BP 145 / 100; Pulse 99; Resp 18; Temp 98; Pulse Ox 100% on R/A; Weight 154.6 kg; Height bm8 5 ft. 4 in. ; Pain 0/10; 19:51 Body Mass Index 58.50 (154.60 kg, 162.56 cm) bm8 19:51 Pain Scale: Adult bm8 Nelly Coma Score: 19:56 Eye Response: spontaneous(4). Motor Response: obeys commands(6). Verbal Response: bm8 oriented(5). Total: 15. MDM: 19:47 Patient medically screened. rn 19:56 Data reviewed: vital signs, nurses notes, old medical records, and as a result, I will procedure rn patient. Counseling: I had a detailed discussion with the patient and/or guardian regarding the historical points, exam findings, and any diagnostic results supporting the discharge/admit diagnosis, the need for outpatient follow up, to return to the emergency department if symptoms worsen or persist or if there are any questions or concerns that arise at home. Special discussion: I discussed with the patient/guardian in detail that at this point there is no indication for admission to the hospital. It is understood, however, that if the symptoms persist or worsen the patient needs to return immediately for re-evaluation. ED course: Patient is going to follow-up with her psychiatrist. Will prescribe a few tablets.. Administered Medications: 20:05 Drug: LORazepam PO 1 mg PO once Route: PO; bm8 20:05 Follow up: Response: Medication administered at discharge. bm8 Disposition Summary: 11/30/23 20:02 Discharge Ordered Notes: Location: Home rn Problem: new rn Symptoms: have improved rn Condition: Stable rn Diagnosis - Patient's unintentional underdosing of medication regimen for other reason - controlled atmospheric furnace brazer refill Followup: rn - With: Private Physician - When: As needed - Reason: Recheck today's complaints, Re-evaluation by your physician Discharge Instructions: - Discharge Summary Sheet rn - Medicine Refill at the Emergency Department rn - Basics of Medicine Management rn Forms: - Medication Reconciliation Form rn - Antibiotic l d rn - Prescription Opioid Use rn - Patient Portal Instructions rn - Leadership Thank You Letter rn Prescriptions: - clonazepam 1 mg Oral tablet - take 1 tablet ORAL route every 12 hours As needed; 8 tablet; Refills: 0, rn Product Selection Permitted Signatures: Zacarias Hendricks MD MD rn McDonald, Brad, RN RN bm8
[2023-11-30 20:27] VITALS: BP 145/100; TEMP 98; O2SAT 100
== END 2023-11-30 20:07 | disposition home or self-care (01) ==
LOC: ER 19:43
DX: F13.939 Sedative, hypnotic or anxiolytic use, unspecified with withdrawal, unspecified (principal); Z76.0 Encounter for issue of repeat prescription; Z91.138 Patient's unintentional underdosing of medication regimen for other reason; F31.9 Bipolar disorder, unspecified
CPT/HCPCS: 99283

== ENCOUNTER 2023-12-01 11:05 | Emergency (ER) | payer OTHER ==
--- NOTE | 2023-12-01 11:48 | ER ---
Nurse's Notes [facility] Name: Corrie Hartman Age: 28 yrs Sex: Female : 1995 Arrival Date: 12/01/2023 Time: 11:05 Bed 13 Private MD: Diagnosis: Drug abuse counseling and surveillance of drug abuser Presentation: 11/30 11:15 Chief complaint: Pt's states "she lost her clonazepam prescription at [place] [address] and the pharmacy won't fill the new prescription because it was recently filled". Pt's states "her doctor said to come to the ER every day if we have to to get the medicine". 11:16 Coronavirus screen: At this time, the client does not indicate any symptoms associated aa5 with coronavirus-19. Ebola Screen: Patient denies travel to an Ebola-affected area in the 21 days before illness onset. Onset of symptoms was November 2023. 11:16 Acuity: MARKO 5 aa 11:16 Method Of Arrival: Ambulatory [facility] 11:16 Initial Sepsis Screen: Does the patient meet any 2 criteria? HR > 90 bpm. Does the aa5 patient have a suspected source of infection? No. Patient's initial sepsis screen is negative. Risk Assessment: Do you want to hurt yourself or someone else? Patient reports no desire to harm self or others. Historical: - Allergies: 11:17 No Known Allergies; aa5 - PMHx: 11:17 Anxiety; Bipolar disorder; depressive disorder; panic attack; PTSD; Seizure; aa5 - PSHx: 11:17 section; aa5 - Immunization history:: Adult Immunizations unknown. - Infectious Disease History:: Denies. - Social history:: Smoking status: Reported history of juuling and/or vaping. Screenin:42 [facility] ED Fall Risk Assessment (Adult) History of falling in the last 3 months, kc6 including since admission No falls in past 3 months (0 pts) Confusion or Disorientation No (0 pts) Intoxicated or Sedated No (0 pts) Impaired Gait No (0 pts) Mobility Assist Device Used No (0 pt) Altered Elimination No (0 pt) Score/Fall Risk Level 0 - 2 = Low Risk. Abuse screen: Denies threats or abuse. Denies injuries from another. Nutritional screening: No deficits noted. Tuberculosis screening: No symptoms or risk factors identified. Assessment: 11:44 General: Appears in no apparent distress. comfortable, well groomed, well developed, kc6 Behavior is calm, cooperative, appropriate for age. Pain: Denies pain. Neuro: Level of Consciousness is awake, alert, obeys commands, Oriented to person, place, time, situation, Appropriate for age. Cardiovascular: Capillary refill < 3 seconds. Respiratory: Airway is patent Trachea midline Respiratory effort is even, unlabored, Respiratory pattern is regular, symmetrical. GI: No signs and/or symptoms were reported involving the gastrointestinal system. : No signs and/or symptoms were reported regarding the genitourinary system. EENT: No signs and/or symptoms were reported regarding the EENT system. Derm: No signs and/or symptoms reported regarding the dermatologic system. Skin is intact, is healthy with good turgor, Skin is pink, warm \\T\\ dry. Musculoskeletal: No signs and/or symptoms reported regarding the musculoskeletal system. Circulation, motion, and sensation intact. Capillary refill < 3 seconds, Range of motion: intact in all extremities. 12:07 Reassessment: PT AND FAMILY NO LONGER IN THE ROOM. PT LEFT BEFORE SIGNING D/C kc6 PAPERWORK. DR. PEREZ NOTIFIED. Vital Signs: 11:16 BP 129 / 78; Pulse 83; Resp 16 S; Temp 98(TE); Pulse Ox 100% on R/A; Weight 154.22 kg aa5 (R); Height 5 ft. 4 in. (R); 11:16 Body Mass Index 58.36 (154.22 kg, 162.56 cm) aa5 ED Course: 11:10 Patient arrived in ED. mr 11:15 Arm band placed on. aa5 11:17 Triage completed. aa5 11:20 Denisha Quiroz, AMY is Primary Nurse. kc6 11:26 Leidy Perez MD is Attending Physician. gb1 11:43 Patient has correct armband on for positive identification. Bed in low position. Call kc6 light in reach. Side rails up X 1. Adult w/ patient. Client placed on continuous cardiac and pulse oximetry monitoring. NIBP monitoring applied. Pillow given. 11:46 Nathaniel Perez MD is Referral Physician. gb1 12:08 No provider procedures requiring assistance completed. Patient did not have IV access kc6 during this emergency room visit. Administered Medications: No medications were administered Medication: 12:08 VIS not applicable for this client. kc6 Outcome: 11:48 Discharge ordered by MD. dean1 12:08 Discharged to home ambulatory, with significant other, kc6 12:08 Condition: good 12:08 Discharge instructions given to patient, Instructed on discharge instructions, follow up and referral plans. Demonstrated understanding of instructions, follow-up care, 12:08 Patient left the ED. kc6 Signatures: Ginny Mcdowell, Darryl Reg mr Light, Rhona, RN RN aa5 Denisha Quiroz RN RN kc6 Leidy Perez MD MD gb1 Corrections: (The following items were deleted from the chart) 11:17 11:15 Chief complaint: Pt's states "she lost her clonazepam prescription at [address] and the pharmacy won't fill the new prescription because it was recently filled" [facility]
--- NOTE | 2023-12-01 12:09 | EDPHYS ---
Physician Documentation [facility] Name: Corrie Hartman Age: 28 yrs Sex: Female : 1995 Arrival Date: 12/01/2023 Time: 11:05 Bed 13 Private MD: ED Physician Leidy Perez HPI: 11/30 11:50 This 28 yrs old Female presents to ER via Ambulatory with complaints of gb1 Medication Refill. 11:50 28-year-old female who is frequently prescribed clonazepam for her anxiety gb1 and panic attack disorder. She sees Dr. Nathaniel Moon primarily for psychiatric care.. The patient states that she filled #60 Klonopin on November 29, 2023. She states that she lost that prescription and she thinks she left it in the grocery store cart. She returned to the emergency department on yesterday and was prescribed #8 Klonopin to "get her through to her next prescription". Today the patient's filling prescribed pharmacy called the emergency department and asked Dr. Hirsch for a clearance to fill this medication. He denied the request and patient called her psychiatrist who told her to come to the emergency department again today for evaluation and another prescription.. Historical: - Allergies: 11:17 No Known Allergies; aa5 - PMHx: 11:17 Anxiety; Bipolar disorder; depressive disorder; panic attack; PTSD; Seizure; aa5 - PSHx: 11:17 section; aa5 - Immunization history:: Adult Immunizations unknown. - Infectious Disease History:: Denies. - Social history:: Smoking status: Reported history of juuling and/or vaping. Exam: 11:50 Constitutional: This is a well developed, well nourished patient who is awake, alert, gb1 and in no acute distress. Head/Face: Normocephalic, atraumatic. Eyes: Pupils equal round and reactive to light, extra-ocular motions intact. Lids and lashes normal. Conjunctiva and sclera are non-icteric and not injected. Cornea within normal limits. Periorbital areas with no swelling, redness, or edema. ENT: Nares patent. No nasal discharge, no septal abnormalities noted. Tympanic membranes are normal and external auditory canals are clear. Oropharynx with no redness, swelling, or masses, exudates, or evidence of obstruction, uvula midline. Mucous membranes moist. Neck: Trachea midline, no thyromegaly or masses palpated, and no cervical lymphadenopathy. Supple, full range of motion without nuchal rigidity, or vertebral point tenderness. No Meningismus. Chest/axilla: Normal chest wall appearance and motion. Nontender with no deformity. No lesions are appreciated. Cardiovascular: Regular rate and rhythm with a normal S1 and S2. No gallops, murmurs, or rubs. Normal PMI, no JVD. No pulse deficits. Respiratory: Lungs have equal breath sounds bilaterally, clear to auscultation and percussion. No rales, rhonchi or wheezes noted. No increased work of breathing, no retractions or nasal flaring. Abdomen/GI: Soft, non-tender, with normal bowel sounds. No distension or tympany. No guarding or rebound. No evidence of tenderness throughout. Back: No spinal tenderness. No costovertebral tenderness. Full range of motion. Skin: Warm, dry with normal turgor. Normal color with no rashes, no lesions, and no evidence of cellulitis. MS/ Extremity: Pulses equal, no cyanosis. Neurovascular intact. Full, normal range of motion. Neuro: Awake and alert, GCS 15, oriented to person, place, time, and situation. Cranial nerves II-XII grossly intact. Motor strength 5/5 in all extremities. Sensory grossly intact. Cerebellar exam normal. Normal gait. Psych: Awake, alert, with orientation to person, place and time. Patient is tearful at the bedside. Vital Signs: 11:16 BP 129 / 78; Pulse 83; Resp 16 S; Temp 98(TE); Pulse Ox 100% on R/A; Weight 154.22 kg aa5 (R); Height 5 ft. 4 in. (R); 11:16 Body Mass Index 58.36 (154.22 kg, 162.56 cm) aa5 MDM: 11:26 Patient medically screened. [facility] 11:50 Data reviewed: nurses notes, I have discussed the patient's presentation/case with the [facility] attending Emergency Department Physician;. 11:54 ED course: 28-year-old female with multiple psychiatric conditions here for refill of gb1 Klonopin that was initially prescribed, filled and picked up at the patient on November 28 number 60 tablets. Patient returned to emergency room last night and she was given a prescription for #8 Klonopin, for which the pharmacist called for clearance since the patient had recently picked up #60 just a day ago. The patient's and pharmacist request was denied today. Patient presented to me in the emergency department requesting a full month number 60 tablets of her Klonopin. I visited the patient with the charge nurse Katarina at the bedside with me as well. I discussed with the patient that her [employer] aware score was over 300 and there was a concern for benzodiazepine misuse. I also reiterated to her that I would not be refilling her requested medication for Klonopin No. 60 today. I will touch base with her prescribing psychiatrist as well and I discharged her to his care.. Administered Medications: No medications were administered Disposition Summary: 12/01/23 11:48 Discharge Ordered Notes: Location: Home gb1 Condition: Stable gb1 Diagnosis - Drug abuse counseling and surveillance of drug abuser gb1 Followup: gb1 - With: Nathaniel Perez MD - When: - Reason: Recheck today's complaints Discharge Instructions: - Discharge Summary Sheet bd - Prescription Drug Misuse Information gb1 Forms: - SBAR form bd - Medication Reconciliation Form gb1 - Antibiotic Education gb1 - Prescription Opioid Use gb1 - Patient Portal Instructions gb1 - Leadership Thank You Letter gb1 Signatures: Rhona Light, RN RN aa5 Leidy Perez MD MD gb1
[2023-12-01 12:36] VITALS: BP 129/78; TEMP 98; O2SAT 100
== END 2023-12-01 12:08 | disposition home or self-care (01) ==
LOC: ER 11:05
DX: Z71.51 Drug abuse counseling and surveillance of drug abuser (principal)
CPT/HCPCS: 99283

== ENCOUNTER 2023-12-25 04:15 | Emergency (ER) | payer OTHER ==
[2023-12-25] MEDS ORDERED: LORazepam 2 MG/ML VIAL ONE (04:47)
[2023-12-25] MEDS ORDERED: KETOROLAC 30 MG/ML INJ ONE (04:47)
[2023-12-25] MEDS ORDERED: NA CHLORIDE 0.9% 1,000 ML ONE (04:48)
[2023-12-25] MEDS ORDERED: METOCLOPRAMIDE 10 MG/2mL INJ ONE (04:48)
--- NOTE | 2023-12-25 06:36 | ER ---
Nurse's Notes [facility] Name: Corrie Hartman Age: 28 yrs Sex: Female : 1995 Arrival Date: 12/25/2023 Time: 04:15 Bed 8 Private MD: Diagnosis: Acute intoxication, acute anxiety secondary to drug use Presentation: 12/24 04:26 Chief complaint: EMS states: TOOK GUMMY SHROOMS FROM THE VAPE SHOP AND NO SHE DOESN'T jj7 FEEL GOOD. DRY MOUTH AND SHAKING IN HER LEGS. Coronavirus screen: At this time, the client does not indicate any symptoms associated with coronavirus-19. Ebola Screen: No symptoms or risks identified at this time. Initial Sepsis Screen: Does the patient meet any 2 criteria? HR > 90 bpm. Yes Does the patient have a suspected source of infection? No. Patient's initial sepsis screen is negative. Risk Assessment: Do you want to hurt yourself or someone else? Patient reports no desire to harm self or others. Onset of symptoms was December 25, 2023. 04:26 Method Of Arrival: EMS: [facility] j7 04:26 Acuity: MARKO 3 jj7 Triage Assessment: 04:28 General: Appears in no apparent distress. uncomfortable, Behavior is calm, cooperative, jj7 appropriate for age. Pain: Denies pain. EENT: Reports DRY MOUTH. Neuro: No deficits noted. Musculoskeletal: Reports SHAKING IN LEGS. RCP: 04:28 LMP 12/10/2023, unknown jj7 Historical: - Allergies: 04:28 No Known Allergies; jj7 - PMHx: 04:28 Anxiety; Bipolar disorder; depressive disorder; panic attack; PTSD; Seizure; jj7 - PSHx: 04:28 section; jj7 - Immunization history:: Adult Immunizations not up to date, Client reports receiving the 2nd dose of the Covid vaccine, Flu vaccine is not up to date. - Infectious Disease History:: Denies. - Social history:: Smoking status: Reported history of juuling and/or vaping. Patient/guardian denies using alcohol, street drugs, IV drugs. - Family history:: not pertinent. Screenin:[facility] ED Fall Risk Assessment (Adult) History of falling in the last 3 months, jj7 including since admission No falls in past 3 months (0 pts) Confusion or Disorientation No (0 pts) Intoxicated or Sedated No (0 pts) Impaired Gait No (0 pts) Mobility Assist Device Used No (0 pt) Altered Elimination No (0 pt) Score/Fall Risk Level 0 - 2 = Low Risk Oriented to surroundings, Maintained a safe environment, Educated pt \T\ family on fall prevention, incl call for assistance when getting out of bed. Abuse screen: Denies injuries from another. Nutritional screening: No deficits noted. Tuberculosis screening: No symptoms or risk factors identified. Assessment: 04:30 Reassessment: SEE TRIAGE ASSESSMENT. jj7 05:30 Reassessment: Patient appears in no apparent distress at this time. No changes from [facility] previously documented assessment. Patient and/or family updated on plan of care and expected duration. Pain level reassessed. Patient is alert, oriented x 3, equal unlabored respirations, skin warm/dry/pink. 06:14 Reassessment: Patient appears in no apparent distress at this time. No changes from [facility] previously documented assessment. Patient and/or family updated on plan of care and expected duration. Pain level reassessed. Patient is alert, oriented x 3, equal unlabored respirations, skin warm/dry/pink. Vital Signs: 04:26 BP 136 / 80; Pulse 108; Resp 16; Temp 98.2; Pulse Ox 100% ; Weight 147.87 kg; Height 5 jj7 ft. 4 in. ; 05:00 BP 118 / 82; Pulse 102; Resp 20 S; Pulse Ox 99% on R/A; jw7 06:00 BP 110 / 68; Pulse 101; Resp 20 S; Pulse Ox 98% on 2 lpm NC; jw7 06:50 BP 117 / 67; Pulse 104; Resp 17; Temp 98.3; Pulse Ox 98% ; jj7 04:26 Body Mass Index 55.96 (147.87 kg, 162.56 cm) j7 [place] Coma Score: 06:33 Eye Response: spontaneous(4). Motor Response: obeys commands(6). Verbal Response: sp4 oriented(5). Total: 15. ED Course: 04:17 Patient arrived in ED. vk 04:23 Bryant Castro MD is Attending Physician. sp4 04:28 Triage completed. jj7 04:28 Arm band placed on right wrist. Patient placed in an exam room, on a stretcher, on jj7 cardiac sonographer, on pulse oximetry. 04:30 Patient has correct armband on for positive identification. Bed in low position. Call jj7 light in reach. Side rails up X2. Provided Education on: USE OF CALL MONTEIRO. Warm blanket given. 04:30 No provider procedures requiring assistance completed. jj7 05:07 Missed attempt(s): 20 gauge in right antecubital area. Bleeding controlled, band aid jj7 applied, catheter tip intact. 05:15 Initial lab(s) drawn, by ED staff, sent to lab. Inserted saline lock: 20 gauge in left jj7 antecubital area, using aseptic technique. Blood collected. 05:19 Test, Serum Sent. jj7 06:50 IV discontinued, intact, bleeding controlled, No redness/swelling at site. Pressure jj7 dressing applied. Administered Medications: 05:18 Drug: Ketorolac IVP 30 mg IVP once Route: IVP; Site: left antecubital; jj7 06:39 Follow up: Response: Marked relief of symptoms; Pain is decreased jj7 05:18 Drug: metoCLOPramide IVP 10 mg IVP once; over 1 to 2 minutes Route: IVP; Site: left [facility] antecubital; 06:39 Follow up: Response: Marked relief of symptoms jj7 05:18 Drug: NS 0.9% IV 1000 ml IV at 1 bolus Per protocol; 1000 mL bolus Route: IV; Rate: 1 jj7 bolus; Site: left antecubital; 06:50 Follow up: IV Status: Completed infusion; IV Intake: 400ml jj7 05:19 Drug: Ativan IVP 2 mg IVP once Route: IVP; Site: left antecubital; jj7 06:39 Follow up: Response: Marked relief of symptoms jj7 05:19 Drug: NS 0.9% IV 1000 ml IV at 1 bolus Per protocol; 1000 mL bolus Route: IV; Rate: 1 jj7 bolus; Site: left antecubital; 06:39 Follow up: IV Status: Completed infusion jj7 Medication: 04:30 VIS not applicable for this client. jj7 Intake: 06:50 IV: 400ml; Total: 400ml. jj7 Outcome: 06:36 Discharge ordered by MD. donis 06:50 Discharged to home via wheelchair, jj7 06:50 Condition: improved 06:50 Discharge instructions given to patient, Instructed on discharge instructions, Demonstrated understanding of instructions, 07:00 Patient left the ED. jj7 Signatures: Jaz Hearn RN RN jw7 Ha Vieira RN RN jj7 Bryant Castro MD MD sp4 Ashley Culver
--- NOTE | 2023-12-25 06:36 | EDPHYS ---
Physician Documentation [facility] Name: Corrie Hartman Age: 28 yrs Sex: Female : 1995 Arrival Date: 12/25/2023 Time: 04:15 Bed 8 Private MD: ED Physician Bryant Castro HPI: 12/24 04:23 This 28 yrs old Female presents to ER via Unassigned with complaints of Gen sp4 complaint . 06:33 28-year-old female arrives with EMS for acute intoxication secondary to gummy that she sp4 purchased from the vape shop. Patient states this was a mushroom containing gummy which caused patient to get headache and also dry mouth. Anxious appearing on arrival.. [employer]: 04:28 LMP 12/10/2023, unknown jj7 Historical: - Allergies: 04:28 No Known Allergies; jj7 - PMHx: 04:28 Anxiety; Bipolar disorder; depressive disorder; panic attack; PTSD; Seizure; jj7 - PSHx: 04:28 section; jj7 - Immunization history:: Adult Immunizations not up to date, Client reports receiving the 2nd dose of the Covid vaccine, Flu vaccine is not up to date. - Infectious Disease History:: Denies. - Social history:: Smoking status: Reported history of juuling and/or vaping. Patient/guardian denies using alcohol, street drugs, IV drugs. - Family history:: not pertinent. ROS: 06:33 Constitutional: Negative for fever, chills, and weight loss, positive anxiety positive sp4 headache, positive dry mouth 06:33 All other systems are negative, Exam: 06:33 Constitutional: This is a well developed, well nourished patient who is awake, alert, sp4 morbidly obese female anxious appearing on arrival. Tachycardic Head/Face: Normocephalic, atraumatic. Eyes: Pupils equal round and reactive to light, extra-ocular motions intact. Lids and lashes normal. Conjunctiva and sclera are not injected. Cornea within normal limits. Periorbital areas with no swelling, redness, or edema. ENT: Nares patent. No nasal discharge, no septal abnormalities noted. Tympanic membranes are normal and external auditory canals are clear. Oropharynx with no redness, swelling, or masses, exudates, or evidence of obstruction, uvula midline. Mucous membranes moist. Neck: Trachea midline, no thyromegaly or masses palpated, and no cervical lymphadenopathy. Supple, full range of motion without nuchal rigidity, or vertebral point tenderness. Chest/axilla: Normal chest wall appearance and motion. Nontender with no deformity. No lesions are appreciated. Cardiovascular: Regular tachycardia , with a normal S1 and S2. No gallops, murmurs, or rubs. Normal PMI, no JVD. No pulse deficits. Respiratory: Lungs have equal breath sounds bilaterally, clear to auscultation and percussion. No rales, rhonchi or wheezes noted. No increased work of breathing, no retractions or nasal flaring. Abdomen/GI: Soft, with normal bowel sounds. No distension or tympany. No guarding or rebound. No evidence of tenderness throughout. Back: No spinal tenderness. No costovertebral tenderness. Female : Normal external genitalia. Skin: Warm, dry with normal turgor. Normal color with no rashes, no lesions, and no evidence of cellulitis. MS/ Extremity: Pulses equal, no cyanosis. Neurovascular intact. Full, normal range of motion. Neuro: Awake and alert, GCS 15, oriented to person, place, time, and situation. Cranial nerves II-XII grossly intact. Motor strength 5/5 in all extremities. Sensory grossly intact. Psych: Awake, alert, with orientation to person, place and time. Behavior, mood, and affect are within normal limits Vital Signs: 04:26 BP 136 / 80; Pulse 108; Resp 16; Temp 98.2; Pulse Ox 100% ; Weight 147.87 kg; Height 5 jj7 ft. 4 in. ; 05:00 BP 118 / 82; Pulse 102; Resp 20 S; Pulse Ox 99% on R/A; jw7 06:00 BP 110 / 68; Pulse 101; Resp 20 S; Pulse Ox 98% on 2 lpm NC; jw7 06:50 BP 117 / 67; Pulse 104; Resp 17; Temp 98.3; Pulse Ox 98% ; jj7 04:26 Body Mass Index 55.96 (147.87 kg, 162.56 cm) [facility] Coma Score: 06:33 Eye Response: spontaneous(4). Motor Response: obeys commands(6). Verbal Response: sp4 oriented(5). Total: 15. MDM: 04:43 Patient medically screened. sp4 06:38 Differential Diagnosis altered mental status, sepsis, flu. Data reviewed: vital signs, sp4 nurses notes, EMS record, lab test result(s), UPT: negative. 12/24 04:38 Order name: Test, Serum; Complete Time: 06:30 sp4 Administered Medications: 05:18 Drug: Ketorolac IVP 30 mg IVP once Route: IVP; Site: left antecubital; jj7 06:39 Follow up: Response: Marked relief of symptoms; Pain is decreased jj7 05:18 Drug: metoCLOPramide IVP 10 mg IVP once; over 1 to 2 minutes Route: IVP; Site: left [facility] antecubital; 06:39 Follow up: Response: Marked relief of symptoms jj7 05:18 Drug: NS 0.9% IV 1000 ml IV at 1 bolus Per protocol; 1000 mL bolus Route: IV; Rate: 1 jj7 bolus; Site: left antecubital; 06:50 Follow up: IV Status: Completed infusion; IV Intake: 400ml jj7 05:19 Drug: Ativan IVP 2 mg IVP once Route: IVP; Site: left antecubital; jj7 06:39 Follow up: Response: Marked relief of symptoms jj7 05:19 Drug: NS 0.9% IV 1000 ml IV at 1 bolus Per protocol; 1000 mL bolus Route: IV; Rate: 1 jj7 bolus; Site: left antecubital; 06:39 Follow up: IV Status: Completed infusion jj7 Disposition Summary: 12/25/23 06:36 Discharge Ordered Notes: We advise you abstain from recreational drug use Location: Home sp4 Problem: new sp4 Symptoms: have improved sp4 Condition: Stable sp4 Diagnosis - Acute intoxication, acute anxiety secondary to drug use sp4 Followup: sp4 - With: Private Physician - When: 7 - 10 days - Reason: Recheck today's complaints Discharge Instructions: - Discharge Summary Sheet sp4 - Illegal Drug Use Information, Adult sp4 Forms: - Patient Portal Instructions sp4 Signatures: Dispatcher [employer] Ha Brooke RN RN jj7 Potepalov, Brynat, MD MD sp4
[2023-12-25 07:19] VITALS: BP 117/67; TEMP 98.3; O2SAT 98
== END 2023-12-25 07:00 | disposition home or self-care (01) ==
LOC: ER 04:15
DX: T50.995A Adverse effect of other drugs, medicaments and biological substances, initial encounter (principal); F19.980 Other psychoactive substance use, unspecified with psychoactive substance-induced anxiety disorder; R51.9 Headache, unspecified; F31.9 Bipolar disorder, unspecified
CPT/HCPCS: 96361; 36415; 84703; 96375; 96374; 99284; J2765; J7030

== ENCOUNTER 2024-03-09 19:04 | Emergency (ER) | payer OTHER ==
[2024-03-09] MEDS ORDERED: KETOROLAC 30 MG/ML INJ ONE (20:00)
[2024-03-09] MEDS ORDERED: NA CHLORIDE 0.9% 0 ML ONE (20:00)
[2024-03-09] MEDS ORDERED: METOCLOPRAMIDE 10 MG/2mL INJ ONE (20:01)
[2024-03-09] MEDS ORDERED: DIPHENHYDRAMINE 50 MG/ML VIAL ONE (20:01)
--- NOTE | 2024-03-09 20:18 | ER ---
Nurse's Notes [facility] Name: Corrie Hartman Age: 28 yrs Sex: Female : 1995 Arrival Date: 03/09/2024 Time: 19:04 Bed 13 Private MD: Diagnosis: Dizziness and giddiness Presentation: 03/09 19:26 Chief complaint: Patient states: Dizziness and headache X2 days. Pt states that she cm10 feels like the room is spinning. pt reports that she "blacked out" today while walking her dog. Coronavirus screen: Client denies travel out of the [place] in the last 14 days. At this time, the client does not indicate any symptoms associated with coronavirus-19. Ebola Screen: Patient denies travel to an Ebola-affected area in the 21 days before illness onset. No symptoms or risks identified at this time. Initial Sepsis Screen: Does the patient meet any 2 criteria? No. Patient's initial sepsis screen is negative. Does the patient have a suspected source of infection? No. Patient's initial sepsis screen is negative. Risk Assessment: Do you want to hurt yourself or someone else? Patient reports no desire to harm self or others. Onset of symptoms was March 09, 2024. 19:26 Method Of Arrival: Ambulatory cm10 19:26 Acuity: MARKO 3 cm10 Triage Assessment: 19:27 General: Appears in no apparent distress. comfortable, Behavior is calm, cooperative. cm10 Neuro: No deficits noted. Level of Consciousness is awake, alert, obeys commands, Oriented to person, place, time, situation, Appropriate for age Reports dizziness, headache. 19:28 Respiratory: No deficits noted. Airway is patent Respiratory effort is even, unlabored, cm10 Respiratory pattern is regular, symmetrical. 20:48 Pain: Complains of pain in head Pain level that patient reports is acceptable is 5 out kd4 of 10 on a pain scale. 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 - Infectious Disease History:: Denies. - Social history:: Smoking status: Reported history of juuling and/or vaping. Screenin:47 [facility] ED Fall Risk Assessment (Adult) History of falling in the last 3 months, kd4 including since admission No falls in past 3 months (0 pts) Confusion or Disorientation No (0 pts) Intoxicated or Sedated No (0 pts) Impaired Gait No (0 pts) Mobility Assist Device Used No (0 pt) Altered Elimination No (0 pt) Score/Fall Risk Level 0 - 2 = Low Risk Oriented to surroundings. Abuse screen: Denies threats or abuse. Nutritional screening: No deficits noted. Tuberculosis screening: No symptoms or risk factors identified. Assessment: 20:43 General: Patient decided to leave ama, refused all order and states she wants to leave. kd4 DIONICIO Daniels notified. she discharged patient. patient ambulatory, a/o x 4, steady gait.. Vital Signs: 19:26 BP 127 / 62; Pulse 72; Resp 16; Temp 97(TE); Pulse Ox 96% on R/A; Weight 134.2 kg; cm10 Height 5 ft. 4 in. ; Pain 10/10; 20:44 BP 104 / 61; Pulse 62; Resp 18; Temp 98.1; Pulse Ox 99% on R/A; Pain 5/10; kd4 19:26 Body Mass Index 50.78 (134.20 kg, 162.56 cm) cm10 19:26 Pain Scale: Adult cm10 20:44 Pain Scale: Adult kd4 ED Course: 19:07 Patient arrived in ED. gm2 19:27 Triage completed. cm10 19:27 Arm band placed on Patient placed in an exam room, on a stretcher. cm10 19:29 Rosi Daniels PA-C is PHCP. sb4 19:29 Raul Cristina DO is Attending Physician. sb4 19:56 Lam Chavez, AMY is Primary Nurse. kd4 20:47 No provider procedures requiring assistance completed. Patient did not have IV access kd4 during this emergency room visit. 20:48 Patient has correct armband on for positive identification. Provided Education on: kd4 discharge and refusal of care. Administered Medications: 20:45 Not Given (Patient Refused): [id number] mg IVP once; over 1 to 2 minutes kd4 20:45 Not Given (Patient Refused): [id number] mg IVP once kd4 20:46 Not Given (Patient Refused): ns 0.9% 1000 ml IV at 1 bolus Per protocol; 1000 mL bolus kd4 20:46 Not Given (Patient Refused): [id number] mg IVP once kd4 Medication: 20:49 VIS not applicable for this client. kd4 Outcome: 20:17 Discharge ordered by . sb4 20:47 Discharged to home ambulatory, kd4 20:47 Condition: good 20:47 Discharge instructions given to patient, 20:49 Patient left the ED. kd4 Signatures: Raul Cristina, DO PÉREZ ms3 Rosi Daniels PAIgorC PA-C sb4 Miranda Palmer RN RN cm10 Agustina Campuzano gm2 Lam Chavez RN RN kd4
--- NOTE | 2024-03-09 20:18 | EDPHYS ---
Physician Documentation [facility] Name: Corrie Hartman Age: 28 yrs Sex: Female : 1995 Arrival Date: 03/09/2024 Time: 19:04 Bed 13 Private MD: ED Physician Raul Cristina HPI: 03/09 19:39 This 28 yrs old Female presents to ER via Ambulatory with complaints of Dizziness. sb4 19:39 The patient presents with sense of spinning. Onset: The symptoms/episode began/occurred sb4 yesterday. Modifying factors: The symptoms are alleviated by closing eyes, holding head still, lying down, the symptoms are aggravated by standing up, changing position. Associated signs and symptoms: Pertinent negatives:. 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 - Infectious Disease History:: Denies. - Social history:: Smoking status: Reported history of juuling and/or vaping. ROS: 19:51 Constitutional: Negative for fever, chills, and weight loss, sb4 19:51 Neuro: Positive for dizziness, headache, near syncope, 19:51 All other systems are negative, Exam: 19:51 Constitutional: This is a well developed, well nourished patient who is awake, alert, sb4 and in no acute distress. Head/Face: Normocephalic, atraumatic. Eyes: Extra-ocular motions intact. Periorbital areas with no swelling, redness, or edema. ENT: Mucous membranes moist. Cardiovascular: Regular rate and rhythm with a normal S1 and S2. Respiratory: Lungs have equal breath sounds bilaterally, clear to auscultation and percussion. No rales, rhonchi or wheezes noted. No increased work of breathing, no retractions or nasal flaring. Abdomen/GI: Soft, non-tender, no distension. Skin: Warm, dry with normal turgor. Normal color with no rashes, no lesions, and no evidence of cellulitis. MS/ Extremity: Pulses equal, no cyanosis. Neurovascular intact. Full, normal range of motion. Vital Signs: 19:26 BP 127 / 62; Pulse 72; Resp 16; Temp 97(TE); Pulse Ox 96% on R/A; Weight 134.2 kg; cm10 Height 5 ft. 4 in. ; Pain 10/10; 20:44 BP 104 / 61; Pulse 62; Resp 18; Temp 98.1; Pulse Ox 99% on R/A; Pain 5/10; kd4 19:26 Body Mass Index 50.78 (134.20 kg, 162.56 cm) cm10 19:26 Pain Scale: Adult cm10 20:44 Pain Scale: Adult kd4 MDM: 19:29 Patient medically screened. sb4 20:17 Data reviewed: vital signs, nurses notes, and as a result, I will discharge patient. sb4 Counseling: I had a detailed discussion with the patient and/or guardian regarding the historical points, exam findings, and any diagnostic results supporting the discharge/admit diagnosis, to return to the emergency department if symptoms worsen or persist or if there are any questions or concerns that arise at home. 20:42 ED course: patient no longer wants to stay for treatment, she is requesting to be sb4 discharged. Administered Medications: 20:45 Not Given (Patient Refused): [id number] mg IVP once; over 1 to 2 minutes kd4 20:45 Not Given (Patient Refused): [id number] mg IVP once kd4 20:46 Not Given (Patient Refused): ns 0.9% 1000 ml IV at 1 bolus Per protocol; 1000 mL bolus kd4 20:46 Not Given (Patient Refused): mg IVP once kd4 Disposition: 19:42 I was immediately available on-site in the Emergency Department for consultation in the ms3 care of the patient. Disposition Summary: 03/09/24 20:17 Discharge Ordered Notes: Location: Home sb4 Problem: new sb4 Symptoms: are unchanged sb4 Condition: Stable sb4 Diagnosis - Dizziness and giddiness sb4 Followup: sb4 - With: Emergency Department - When: As needed - Reason: Trouble breathing, Worsening of condition Discharge Instructions: - Discharge Summary Sheet sb4 - Dizziness, [id number] sb4 Forms: - Patient Portal Instructions sb4 - Leadership Thank You Letter sb4 Signatures: Dispatcher [employer] EDRaul Gutierrez DO DO ms3 Rosi Daniels PA-C PAIgorC sb4 Miranda Palmer, RN RN cm10 Lam Chavez, RN RN kd4 Corrections: (The following items were deleted from the chart) 19:39 19:39 BASIC METABOLIC PANEL+C.LAB.BRZ ordered. EDMS EDMS 19:39 19:39 CBC+H.LAB.BRZ ordered. EDMS EDMS 19:39 19:39 MAGNESIUM+C.LAB.BRZ ordered. EDMS EDMS 19:39 19:39 Test, Urine+UC.LAB.BRZ ordered. EDMS EDMS 19:39 19:39 Troponin High Sensitivity+C.LAB.BRZ ordered. EDMS EDMS 19:39 19:39 URINE DRUG SCREEN+UC.LAB.BRZ ordered. EDMS EDMS 19:39 19:39 Urinalysis+U.LAB.BRZ ordered. EDMS EDMS 19:39 19:39 Head Brain Wo Cont+CT.RAD.BRZ ordered. EDMS EDMS 20:46 19:38 IV Saline Lock ordered. sb4 kd4 20:46 19:38 Labs collected and sent ordered. sb4 kd4 20:46 19:38 Oxygen Per Protocol ordered. sb4 kd4 20:46 19:38 O2 Sat Monitoring ordered. sb4 kd4
[2024-03-09 21:00] VITALS: BP 104/61; TEMP 98.1; O2SAT 99
== END 2024-03-09 20:49 | disposition home or self-care (01) ==
LOC: ER 19:04
DX: R42 Dizziness and giddiness (principal); R51.9 Headache, unspecified; R55 Syncope and collapse; Z53.29 Procedure and treatment not carried out because of patient's decision for other reasons
CPT/HCPCS: J1200; J2765; J7030

== ENCOUNTER 2024-04-06 18:59 | Emergency (ER) | payer OTHER ==
[2024-04-06] MEDS ORDERED: FAMOTIDINE 20 MG/2 ML VIAL IV ONE (20:09)
[2024-04-06] MEDS ORDERED: ONDANSETRON 4 MG/2 ML VIAL ONE (20:09)
[2024-04-06] MEDS ORDERED: KETOROLAC 30 MG/ML INJ ONE (20:09)
[2024-04-06] MEDS ORDERED: NA CHLORIDE 0.9% 1,000 ML ONE (20:09)
[2024-04-06 20:27] LABS: Absolute Lymphocytes (CBC) 1.2 K/uL (0.7-4.9); Absolute Monocytes 0.2 K/uL (0.1-1.3); Absolute Neutrophil 4.7 K/uL (1.8-8.0); Basophils % 0.5 % (0-1.3); Eosinophils % 0.6 % (0-4.4); Hematocrit 34.1 % (36.0-45.0); Hemoglobin 11.3 g/dL (12.0-15.0); Lymphocytes % 19.1 % (15.3-44.8); MCH 28.5 pg (27.0-35.0); MCV 86.5 fL (80-100); MPV 7.7 fL (7.6-11.3); Monocytes % 3.9 % (3.3-12.3); Neutrophils % 75.9 % (41.7-73.7); Platelets 246 thou/uL (152-406); RBC Red Blood Cell Count 3.95 M/uL (3.86-4.86); Red Cell Distribution Width 16.2 % (12.1-15.2)
--- NOTE | 2024-04-06 20:41 | RAD REPORT ---
EXAM DESCRIPTION: US - Abdomen Exam Limited - 04/06/2024 8:35 pm CLINICAL HISTORY: ABD PAIN COMPARISON: No comparisons FINDINGS: The gallbladder demonstrates multiple gallstones and sludge. No pericholecystic fluid or g allbladder wall thickening. The common bile duct is normal measuring 6 mm. The liver demonstrates no findings of intrahepatic biliary dilatation. IMPRESSION: Cholelithiasis.
[2024-04-06 20:45] LABS: Albumin 3.2 g/dL (3.4-5.0); Albumin/Globulin Ratio 0.8 (1.1-1.8); Anion Gap 6.7 mEq/L (5.0-15.0); Bilirubin Total 0.5 mg/dL (0.2-1.0); Globulin 3.8 g/dL (2.3-3.5); Potassium 3.7 mEq/L (3.5-5.1)
[2024-04-06] MEDS ORDERED: DICYCLOMINE HCL 10 MG CAP ONE (21:30)
[2024-04-06 21:55] LABS: Urine Bacteria <20 /HPF (<20); Urine Bilirubin NEGATIVE (Negative); Urine Blood Negative (Negative); Urine Clarity Extremely Turbid (Clear); Urine Color Yellow (Yellow); Urine Culture Reflex Order NOT NEEDED; Urine Glucose NEGATIVE (Negative); Urine Ketones NEGATIVE (Negative); Urine Microscopic Reflex YN ORDER UMIC; Urine Mucus 4+ /HPF (None Seen); Urine Nitrite NEGATIVE (Negative); Urine Protein TRACE (Negative); Urine RBC <5 /HPF (None Seen); Urine Urobilinogen 3+ (Normal); Urine WBC <5 /HPF (<5); Urine pH 6.5 (5.0-7.0)
--- NOTE | 2024-04-06 22:44 | RAD REPORT ---
EXAM DESCRIPTION: CTAbdomen Pelvis W Contrast - 04/06/2024 10:35 pm CLINICAL HISTORY: Abdominal pain. ABD PAIN COMPARISON: Abdomen Exam Limited dated 04/06/2024 TECHNIQUE: Venous phase CT imaging of the abdomen and pelvis was performed with 100 ml non-ionic IV contrast. All CT scans are performed using dose optimization technique as appropriate and may include automated exposure control or mA/KV adjustment according to patient size. FINDINGS: The lung bases are clear.Cholelithiasis. The liver, spleen, pancreas, adrenal glands and kidneys are within normal limits. No bowel obstruction, free air, free fluid or abscess. Moderate retained stool in the colon. The appe ndix is normal. No evidence of significant lymphadenopathy. No suspicious bony findings. IMPRESSION: No acute intra-abdominal or pelvic finding. Cholelithiasis.
--- NOTE | 2024-04-06 22:59 | EDPHYS ---
Physician Documentation [facility] Name: Corrie Hartman Age: 28 yrs Sex: Female : 1995 Arrival Date: 04/06/2024 Time: 18:59 Bed 17 Private MD: ED Physician Pal Smith HPI: 04/06 23:03 This 28 yrs old Female presents to ER via Ambulatory with complaints of Abdominal Pain, kb Back Pain. 23:03 Pt is a 28 year old female who presents for upper abd pain that radiates to back that kb began earlier today. Denies n/v/d, fever. . 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 - Infectious Disease History:: Denies. - Social history:: Smoking status: Reported history of juuling and/or vaping. ROS: 23:02 Constitutional: As per HPI kb Exam: 23:02 Constitutional: This is a well developed, well nourished patient who is awake, alert, kb and in no acute distress. Head/Face: Normocephalic, atraumatic. ENT: Moist Mucous membranes Cardiovascular: Regular rate Respiratory: Respirations even and unlabored. No increased work of breathing. Talking in full sentences Skin: Warm, dry with normal turgor. Normal color. MS/ Extremity: Pulses equal, no cyanosis. Neurovascular intact. Full, normal range of motion. Neuro: Awake and alert, GCS 15, oriented to person, place, time, and situation. Moves all extremities. Normal gait. 23:02 Abdomen/GI: Inspection: obese Bowel sounds: normal, Palpation: soft, in all quadrants, mild abdominal tenderness, in the right upper quadrant, Vital Signs: 19:41 BP 106 / 64; Pulse 78; Resp 16; Temp 97.3; Pulse Ox 100% on R/A; Weight 132.9 kg; cm10 Height 5 ft. 4 in. ; Pain 9/10; 21:00 BP 101 / 66; Pulse 62; Resp 18; Pulse Ox 98% ; cp4 23:16 BP 110 / 62; Pulse 67; Resp 18; Temp 97.3; Pulse Ox 98% ; cp4 19:41 Body Mass Index 50.29 (132.90 kg, 162.56 cm) cm10 19:41 Pain Scale: Adult cm10 MDM: 19:07 Patient medically screened. kb 23:02 Differential diagnosis: cholecystitis, Cholelithiasis, gastritis, non-specific abd kb pain, pancreatitis. Data reviewed: vital signs, nurses notes. Counseling: I had a detailed discussion with the patient and/or guardian regarding the historical points, exam findings, and any diagnostic results supporting the discharge/admit diagnosis, lab results, radiology results, the need for outpatient follow up, a general surgeon, a biological science aide, to return to the emergency department if symptoms worsen or persist or if there are any questions or concerns that arise at home. 04/06 19:41 Order name: CBC with Diff; Complete Time: 20:30 kb 04/06 19:41 Order name: CMP; Complete Time: 20:47 kb 04/06 19:41 Order name: Lipase; Complete Time: 20:47 kb 04/06 19:41 Order name: Test, Urine; Complete Time: 21:57 kb 04/06 19:41 Order name: Urinalysis w/ reflexes; Complete Time: 21:57 kb 04/06 19:41 Order name: Abdomen Limited US; Complete Time: 20:44 kb 04/06 21:29 Order name: CT Abd/Pelvis - IV Contrast Only; Complete Time: 22:50 kb 04/06 19:41 Order name: IV Saline Lock; Complete Time: 20:22 kb 04/06 19:41 Order name: Labs collected and sent; Complete Time: 20:22 kb Administered Medications: 20:22 Drug: NS 0.9% IV 1000 ml IV at 1 bolus Per protocol; 1000 mL bolus Route: IV; Rate: 1 cp4 bolus; Site: left antecubital; 23:18 Follow up: IV Status: Completed infusion cp4 20:22 Drug: Famotidine IVP 20 mg IVP once; dilute with 10 mL 0.9% NaCl; give over 2 minutes cp4 Route: IVP; Site: left antecubital; 20:40 Follow up: Response: No adverse reaction cp4 20:22 Drug: TORadol - Ketorolac IVP 15 mg IVP once Route: IVP; Site: left antecubital; cp4 20:40 Follow up: Response: No adverse reaction; Pain is decreased cp4 20:22 Drug: Ondansetron IVP 4 mg IVP once; over 2 minutes Route: IVP; Site: left antecubital; cp4 20:40 Follow up: Response: No adverse reaction; Nausea is decreased cp4 21:48 Drug: Dicyclomine PO 20 mg PO once Route: PO; cp4 22:10 Follow up: Response: No adverse reaction; Pain is decreased cp4 Disposition Summary: 04/06/24 22:58 Discharge Ordered Notes: Location: Home kb Condition: Stable kb Diagnosis - Other cholelithiasis without obstruction kb Followup: kb - With: Emergency Department - When: As needed - Reason: Worsening of condition Followup: kb - With: Private Physician - When: 2 - 3 days - Reason: Recheck today's complaints, Continuance of care, Re-evaluation by your physician Discharge Instructions: - Discharge Summary Sheet kb - Cholelithiasis, [id number] kb Forms: - Medication Reconciliation Form kb - Antibiotic Education kb - Prescription Opioid Use kb - Patient Portal Instructions kb - Leadership Thank You Letter kb Prescriptions: - Zofran 4 mg Oral tablet - take 1 tablet ORAL route every 6 hours As needed; 12 tablet; Refills: 0, kb Product Selection Permitted - dicyclomine 20 mg Oral tablet - take 1 tablet ORAL route 4 times per day As needed; 20 tablet; Refills: 0, kb Product Selection Permitted Addendum: 04/10/2024 15:49 Co-signature as Attending Physician, Pal Smith MD I agree with the assessment and c cornell plan of care. Signatures: Dispatcher [employer] Sonya Nance, ELYSSA-C ANNEALING TORCH OPERATOR-Pal Chavarria MD MD cha Martinez, Clarissa, RN RN cm10 Andria Rodriguez cp4
--- NOTE | 2024-04-06 22:59 | ER ---
Nurse's Notes [facility] Name: Corrie Hartman Age: 28 yrs Sex: Female : 1995 Arrival Date: 04/06/2024 Time: 18:59 Bed 17 Private MD: Diagnosis: Other cholelithiasis without obstruction Presentation: 04/06 19:41 Chief complaint: Patient states: RUQ abdominal pain onset today. Pt reports having cm10 nausea and back pain as well. Coronavirus screen: Client denies travel out of the [place] in the last 14 days. At this time, the client does not indicate any symptoms associated with coronavirus-19. Ebola Screen: Patient denies travel to an Ebola-affected area in the 21 days before illness onset. No symptoms or risks identified at this time. Initial Sepsis Screen: Does the patient meet any 2 criteria? No. Patient's initial sepsis screen is negative. Does the patient have a suspected source of infection? No. Patient's initial sepsis screen is negative. Risk Assessment: Do you want to hurt yourself or someone else? Patient reports no desire to harm self or others. Onset of symptoms was April 06, 2024. 19:41 Method Of Arrival: Ambulatory cm10 19:41 Acuity: MARKO 3 cm10 Triage Assessment: 19:42 General: Appears in no apparent distress. uncomfortable, Behavior is calm, cooperative. cm10 Neuro: No deficits noted. Level of Consciousness is awake, alert, obeys commands, Oriented to person, place, time, situation, Appropriate for age. Respiratory: No deficits noted. Airway is patent Respiratory effort is even, unlabored, Respiratory pattern is regular, symmetrical. 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 - Infectious Disease History:: Denies. - Social history:: Smoking status: Reported history of juuling and/or vaping. Screenin:23 [facility] ED Fall Risk Assessment (Adult) History of falling in the last 3 months, cp4 including since admission No falls in past 3 months (0 pts) Confusion or Disorientation No (0 pts) Intoxicated or Sedated No (0 pts) Impaired Gait No (0 pts) Mobility Assist Device Used No (0 pt) Altered Elimination No (0 pt) Score/Fall Risk Level 0 - 2 = Low Risk Oriented to surroundings, Maintained a safe environment, Assessed \T\ reinforced patient's understanding of fall precautions, Hourly rounding (assess needs \T\ fall precautionary measures) done. Abuse screen: Denies threats or abuse. Nutritional screening: No deficits noted. Tuberculosis screening: No symptoms or risk factors identified. Assessment: 20:15 Reassessment: Patient states she is unable to urinate at this time. Fluids started. cp4 20:23 General: Appears in no apparent distress. uncomfortable, Behavior is calm, cooperative, cp4 appropriate for age. Pain: Complains of pain in abdomen Pain radiates to back Pain currently is 9 out of 10 on a pain scale. Neuro: Level of Consciousness is awake, alert, obeys commands, Oriented to person, place, time, situation. Cardiovascular: Patient's skin is warm and dry. Respiratory: Airway is patent Respiratory effort is even, unlabored. GI: Bowel sounds present X 4 quads. Abd is soft and non tender X 4 quads. : No signs and/or symptoms were reported regarding the genitourinary system. EENT: No signs and/or symptoms were reported regarding the EENT system. Derm: No signs and/or symptoms reported regarding the dermatologic system. Musculoskeletal: No signs and/or symptoms reported regarding the musculoskeletal system. Vital Signs: 19:41 BP 106 / 64; Pulse 78; Resp 16; Temp 97.3; Pulse Ox 100% on R/A; Weight 132.9 kg; cm10 Height 5 ft. 4 in. ; Pain 9/10; 21:00 BP 101 / 66; Pulse 62; Resp 18; Pulse Ox 98% ; cp4 23:16 BP 110 / 62; Pulse 67; Resp 18; Temp 97.3; Pulse Ox 98% ; cp4 19:41 Body Mass Index 50.29 (132.90 kg, 162.56 cm) cm10 19:41 Pain Scale: Adult cm10 ED Course: 19:04 Patient arrived in ED. mr 19:06 Sonya Davies FNP-C [facility]. kb 19:06 Pal Smith MD is Attending Physician. kb 19:42 Triage completed. cm10 19:42 Arm band placed on Patient placed in waiting room. cm10 19:55 Andria Rodriguez is Primary Nurse. cp4 20:12 Missed attempt(s): 22 gauge in right antecubital area. bc6 20:22 CBC with Diff Sent. cp4 20:22 CMP Sent. cp4 20:22 Lipase Sent. cp4 20:22 Test, Urine Sent. cp4 20:22 Urinalysis w/ reflexes Sent. cp4 20:22 No provider procedures requiring assistance completed. Inserted saline lock: 20 gauge cp4 in left antecubital area, using aseptic technique. Blood collected. Flushed with 10 mL NS. 20:23 Bed in low position. Call light in reach. Side rails up X 1. cp4 20:37 Abdomen Limited US In Process Unspecified. EDMS 22:36 CT Abd/Pelvis - IV Contrast Only In Process Unspecified. EDMS 23:17 Provided Education on: cholelithiasis. cp4 23:17 intact, bleeding controlled, No redness/swelling at site. Pressure dressing applied. cp4 Administered Medications: 20:22 Drug: NS 0.9% IV 1000 ml IV at 1 bolus Per protocol; 1000 mL bolus Route: IV; Rate: 1 cp4 bolus; Site: left antecubital; 23:18 Follow up: IV Status: Completed infusion cp4 20:22 Drug: Famotidine IVP 20 mg IVP once; dilute with 10 mL 0.9% NaCl; give over 2 minutes cp4 Route: IVP; Site: left antecubital; 20:40 Follow up: Response: No adverse reaction cp4 20:22 Drug: TORadol - Ketorolac IVP 15 mg IVP once Route: IVP; Site: left antecubital; cp4 20:40 Follow up: Response: No adverse reaction; Pain is decreased cp4 20:22 Drug: Ondansetron IVP 4 mg IVP once; over 2 minutes Route: IVP; Site: left antecubital; cp4 20:40 Follow up: Response: No adverse reaction; Nausea is decreased cp4 21:48 Drug: Dicyclomine PO 20 mg PO once Route: PO; cp4 22:10 Follow up: Response: No adverse reaction; Pain is decreased cp4 Medication: 20:23 VIS not applicable for this client. cp4 Outcome: 22:58 Discharge ordered by MD. aviles 23:17 Discharged to home ambulatory, cp4 23:17 Condition: stable 23:17 Discharge instructions given to patient, Instructed on discharge instructions, follow up and referral plans. medication usage, Demonstrated understanding of instructions, follow-up care, medications, Prescriptions given X 2, 23:18 Patient left the ED. cp4 Signatures: Dispatcher [employer] EDMS Sonya Davies, CARDIAC/VASCULAR SONOGRAPHER-C CARDIAC/VASCULAR SONOGRAPHER-CkGinny James, Darryl Reg mr Brandi Bolanos bc6 Miranda Palmer, AMY RN cm10 Andria Rodriguez cp4
[2024-04-06 23:46] VITALS: TEMP 97.3
[2024-04-06 23:47] VITALS: O2SAT 98
[2024-04-06 23:49] VITALS: BP 110/62
== END 2024-04-06 23:18 | disposition home or self-care (01) ==
LOC: ER 18:59
DX: K80.80 Other cholelithiasis without obstruction (principal)
CPT/HCPCS: 96361; 85025; 81001; 36415; 81025; 83690; 80053; 74177; 76705; 96375; 96374; 99284; J2405; J7030

== ENCOUNTER 2024-05-05 18:27 | Emergency (ER) | payer OTHER ==
[2024-05-05] MEDS ORDERED: NA CHLORIDE 0.9% 500 ML ONE (18:54)
[2024-05-05] MEDS ORDERED: METOCLOPRAMIDE 10 MG/2mL INJ ONE (18:54)
[2024-05-05] MEDS ORDERED: DIPHENHYDRAMINE 50 MG/ML VIAL ONE (18:54)
[2024-05-05] MEDS ORDERED: MORPHINE 4 MG/ML SYR ONE (18:54)
[2024-05-05 19:20] LABS: Specific Gravity 1.028 (1.005-1.030)
[2024-05-05 19:22] LABS: Specific Gravity 1.028 (1.005-1.030); Sqamous Epithelial <5 /HPF (None Seen); Urine Bacteria None Seen /HPF (<20); Urine Bilirubin NEGATIVE (Negative); Urine Blood Negative (Negative); Urine Clarity Clear (Clear); Urine Color Light-Yellow (Yellow); Urine Culture Reflex Order NOT NEEDED; Urine Glucose NEGATIVE (Negative); Urine Ketones NEGATIVE (Negative); Urine Micro Reflex YN NO BILL MICROSCOPIC; Urine Mucus Slight /HPF (None Seen); Urine Nitrite NEGATIVE (Negative); Urine Protein NEGATIVE (Negative); Urine RBC <5 /HPF (None Seen); Urine Urobilinogen Normal (Normal); Urine WBC <5 /HPF (<5); Urine Yeast (Budding) Trace /HPF (None Seen); Urine pH 5.5 (5.0-7.0)
[2024-05-05 19:32] LABS: Absolute Eosinophils 0.1 K/uL (0-0.5); Absolute Lymphocytes (CBC) 1.8 K/uL (0.7-4.9); Absolute Monocytes 0.3 K/uL (0.1-1.3); Absolute Neutrophil 3.1 K/uL (1.8-8.0); Basophils % 0.4 % (0-1.3); Eosinophils % 1.9 % (0-4.4); Hematocrit 36.9 % (36.0-45.0); Hemoglobin 12.5 g/dL (12.0-15.0); Lymphocytes % 33.9 % (15.3-44.8); MCH 29.5 pg (27.0-35.0); MCHC 33.8 g/dL (32.0-36.0); MCV 87.1 fL (80-100); MPV 6.9 fL (7.6-11.3); Monocytes % 5.4 % (3.3-12.3); Neutrophils % 58.4 % (41.7-73.7); Nucleated Red Blood Cells % 0.1 % (0-0); Platelets 275 thou/uL (152-406); RBC Red Blood Cell Count 4.24 M/uL (3.86-4.86); Red Cell Distribution Width 14.1 % (12.1-15.2)
[2024-05-05 19:56] LABS: Albumin 3.2 g/dL (3.4-5.0); Albumin/Globulin Ratio 0.8 (1.1-1.8); Anion Gap 10.7 mEq/L (5.0-15.0); Bilirubin Total 0.4 mg/dL (0.2-1.0); Globulin 4.1 g/dL (2.3-3.5); Potassium 3.7 mEq/L (3.5-5.1); Protein, Total 7.3 g/dL (6.4-8.2)
--- NOTE | 2024-05-05 20:10 | RAD REPORT ---
EXAMINATION: Abdomen Pelvis Wo Contrast CLINICAL INDICATION: Female, 28 years old. ABD PAIN TECHNIQUE: CT abdomen and pelvis was performed, without IV contrast, as per department protocol. Axia l, sagittal and coronal reconstructions were obtained. One or more of the following dose reduction techniques were used: Automated exposure control, adjustment of the mA and kV according to the patien t size, and iterative reconstruction. Unless otherwise specified, incidental findings do not require dedicated imaging follow-up. COMPARISON: 04/06/2024 FINDINGS: The lack of intravenous contrast limits the sensitivity of this exam for evaluation of solid visceral organs, vascular structures, and retroperitoneum. LOWER CHEST: The visualized lung bases are clear. LIVER: Normal in size and contour. No focal lesion. BILIARY SYSTEM: Small dependent gallstones. SPLEEN: Normal size. No focal lesion. PANCREAS: No mass, ductal dilation, or nancy-pancreatic fluid. ADRENALS: Normal; no mass. KIDNEYS AND URETERS: Normal size and contour. No hydronephrosis. URINARY BLADDER: Decompressed limiting evaluation. GASTROINTESTINAL TRACT: No evidence of bowel obstruction, significant free fluid, free air or abscess . APPENDIX: Normal appendix. LYMPH NODES: No lymphadenopathy. MUSCULOSKELETAL: No acute or suspicious osseous abnormality. ADDITIONAL FINDINGS: None. IMPRESSION: No acute abnormalities in the abdomen or pelvis, with evaluation limited by lack of IV contrast. Stab le cholelithiasis
--- NOTE | 2024-05-05 20:17 | EDPHYS ---
Physician Documentation [facility] Name: Corrie Hartman Age: 28 yrs Sex: Female : 1995 Arrival Date: 05/05/2024 Time: 18:27 Bed 18 Private MD: ED Physician Tigre Hirsch HPI: 05/05 18:38 This 28 yrs old Female presents to ER via Unassigned with complaints of ec2 Abdominal Pain, Back Pain. 18:38 Patient arrives today for evaluation of upper abdominal pain. Reports upper abdominal ec2 pain, denies urinary complaints. Patient reports no fevers or chills. Reports history of gallstones. History of . 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 - Infectious Disease History:: Denies. - Social history:: Smoking status: Reported history of juuling and/or vaping. Patient denies any tobacco usage or history of. ROS: 18:38 Constitutional: as per hpi ec2 Exam: 18:38 Constitutional: GEN: NAD Head: atraumatic Eyes: EOMI Ears: External ears are ec2 normal. CV: regular rate LUNGS: no respiratory distress ABD: non-distended, soft, tender in the epigastrum SKIN: no evidence of rashes MSK: no evidence of trauma Vital Signs: 18:37 BP 157 / 92; Pulse 88; Resp 20; Temp 97.9(O); Pulse Ox 96% ; Weight 131.54 kg; Height 5 ll1 ft. 4 in. ; Pain 10/10; 19:33 BP 122 / 74; Pulse 81; Resp 17; Temp 98; Pulse Ox 100% ; Pain 5/10; bm8 20:29 BP 120 / 86; Pulse 81; Resp 17; Temp 98; Pulse Ox 100% ; Pain 0/10; bm8 18:37 Body Mass Index 49.78 (131.54 kg, 162.56 cm) ll1 18:37 Pain Scale: Adult ll1 19:33 Pain Scale: Adult bm8 20:29 Pain Scale: Adult bm8 Lamy Coma Score: 19:33 Eye Response: spontaneous(4). Motor Response: obeys commands(6). Verbal Response: bm8 oriented(5). Total: 15. 20:29 Eye Response: spontaneous(4). Motor Response: obeys commands(6). Verbal Response: bm8 oriented(5). Total: 15. MDM: 18:29 Patient medically screened. kb 18:38 Data reviewed: vital signs. ED course: Patient arrives today for evaluation of upper ec2 abdominal pain. Examination remarkable for well-appearing nontoxic individuals otherwise in no acute distress with a reassuring abdominal examination. Will obtain lab work, CT imaging as well as urine studies. Differential diagnosis includes , gastritis, pancreatitis, gallbladder pathology.. 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 10 18:36 Order name: CBC with Diff; Complete Time: 19:44 ec2 05/05 18:36 Order name: CMP; Complete Time: 20:01 ec2 05/05 18:36 Order name: UAM; Complete Time: 19:23 ec2 05/05 18:36 Order name: Test, Urine; Complete Time: 19:23 ec2 05/05 18:36 Order name: Lipase; Complete Time: 20:01 ec2 05/05 18:36 Order name: CT Abd/Pelvis - Without Contrast; Complete Time: 20:13 ec2 Administered Medications: 19:05 Drug: morphine IVP or IV 4 mg IVP once over 4 mins Route: IVP; Infused Over: 4 mins; cm10 Site: left antecubital; 20:30 Follow up: Response: No adverse reaction bm8 19:05 Drug: metoCLOPramide IVP 10 mg IVP once; over 1 to 2 minutes Route: IVP; Site: left cm10 antecubital; 20:30 Follow up: Response: No adverse reaction bm8 19:05 Drug: diphenhydrAMINE IVP 25 mg IVP once Route: IVP; Site: left antecubital; cm10 20:30 Follow up: Response: No adverse reaction bm8 19:05 Drug: NS 0.9% IV 500 ml IV at bolus once Route: IV; Rate: bolus; Site: left antecubital;cm10 20:30 Follow up: Response: No adverse reaction; IV Status: Completed infusion; IV Intake: bm8 500ml Disposition Summary: 05/05/24 20:17 Discharge Ordered Notes: Location: Home kb Condition: Stable kb Diagnosis - Upper abdominal pain, unspecified kb Followup: kb - With: Emergency Department - When: As needed - Reason: Worsening of condition Followup: kb - With: Private Physician - When: 2 - 3 days - Reason: Recheck today's complaints, Continuance of care, Re-evaluation by your physician Discharge Instructions: - Discharge Summary Sheet kb - Abdominal Pain, Adult, Diio-fv-Auaz kb Forms: - Medication Reconciliation Form kb - Antibiotic Education kb - Prescription Opioid Use kb - Patient Portal Instructions kb - Leadership Thank You Letter kb Prescriptions: - Zofran 4 mg Oral tablet - take 1 tablet ORAL route every 6 hours As needed; 12 tablet; Refills: 0, kb Product Selection Permitted - dicyclomine 20 mg Oral tablet - take 1 tablet ORAL route 4 times per day As needed; 20 tablet; Refills: 0, kb Product Selection Permitted Addendum: 05/07/2024 07:45 I was immediately available for consultation during this patient's visit. I did not e c2 personally see the patient or discuss the patient with the ROBERTA. . Signatures: Dispatcher [employer] Sonya Nance FNP-C FNP-Jackie Castellanos, RN RN ll1 Miranda Palmer, RN RN cm10 Tigre Hirsch MD MD ec2 Calvin Gomez, RN RN bm8
--- NOTE | 2024-05-05 20:17 | ER ---
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 Coronavirus screen: Client denies travel out of the [place] in the last 14 days. At this time, the client does not indicate any symptoms associated with coronavirus-19. Ebola Screen: Patient denies travel to an Ebola-affected area in the 21 days before illness onset. Initial Sepsis Screen: Does the patient meet any 2 criteria? No. Patient's initial sepsis screen is negative. Does the patient have a suspected source of infection? No. Patient's initial sepsis screen is negative. Risk Assessment: Do you want to hurt yourself or someone else? Patient reports no desire to harm self or others. Onset of symptoms was May 05, 2024. 18:37 Method Of Arrival: Ambulatory ll1 18:37 Acuity: MARKO 3 ll1 Triage Assessment: 18:38 General: Appears distressed, uncomfortable, Behavior is cooperative, appropriate for ll1 age, crying. Pain: Complains of pain in abdomen Pain radiates to back Pain currently is 10 out of 10 on a pain scale. Quality of pain is described as aching. GI: Reports upper abdominal pain, nausea. 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 - Infectious Disease History:: Denies. - Social history:: Smoking status: Reported history of juuling and/or vaping. Patient denies any tobacco usage or history of. Screenin:33 [facility] ED Fall Risk Assessment (Adult) History of falling in the last 3 months, bm8 including since admission No falls in past 3 months (0 pts) Confusion or Disorientation No (0 pts) Intoxicated or Sedated No (0 pts) Impaired Gait No (0 pts) Mobility Assist Device Used No (0 pt) Altered Elimination No (0 pt) Score/Fall Risk Level 0 - 2 = Low Risk Oriented to surroundings, Maintained a safe environment, Educated pt \T\ family on fall prevention, incl call for assistance when getting out of bed, Assessed \T\ reinforced patient's understanding of fall precautions, Hourly rounding (assess needs \T\ fall precautionary measures) done, Used ambulatory aids as needed (educated on \T\ assisted with), Used gait belt as appropriate. Abuse screen: Denies threats or abuse. Nutritional screening: No deficits noted. Tuberculosis screening: No symptoms or risk factors identified. Assessment: 19:20 Reassessment: pt to ct. bm8 19:33 Reassessment: Patient appears in no apparent distress at this time. Patient and/or bm8 family updated on plan of care and expected duration. Pain level reassessed. Patient is alert, oriented x 3, equal unlabored respirations, skin warm/dry/pink. pt back from CT Patient states symptoms have improved. General: Appears in no apparent distress. comfortable, Behavior is calm, cooperative, appropriate for age. Pain: Complains of pain in back and abdomen Pain currently is 5 out of 10 on a pain scale. Neuro: Level of Consciousness is awake, alert, obeys commands, Oriented to person, place, time, situation, Appropriate for age. Cardiovascular: Denies chest pain, Capillary refill < 3 seconds in bilateral fingers toes Patient's skin is warm and dry. Respiratory: No deficits noted. Airway is patent Trachea midline Respiratory effort is even, unlabored, Respiratory pattern is regular, symmetrical. GI: Abdomen is round non-distended, obese, Bowel sounds present X 4 quads. Abdomen is tender to palpation in right upper quadrant and left upper quadrant Reports upper abdominal pain, Pain is 5 out of 10 on a pain scale. : No signs and/or symptoms were reported regarding the genitourinary system. EENT: No signs and/or symptoms were reported regarding the EENT system. Derm: No signs and/or symptoms reported regarding the dermatologic system. Musculoskeletal: No signs and/or symptoms reported regarding the musculoskeletal system. 19:33 Reassessment: fluids infusing at prescribed rate in 22g lac. bm8 20:29 Reassessment: Patient appears in no apparent distress at this time. Patient and/or bm8 family updated on plan of care and expected duration. Pain level reassessed. Patient is alert, oriented x 3, equal unlabored respirations, skin warm/dry/pink. Patient denies pain at this time. Patient states feeling better. Patient states symptoms have improved. Vital Signs: 18:37 BP 157 / 92; Pulse 88; Resp 20; Temp 97.9(O); Pulse Ox 96% ; Weight 131.54 kg; Height 5 ll1 ft. 4 in. ; Pain 10/10; 19:33 BP 122 / 74; Pulse 81; Resp 17; Temp 98; Pulse Ox 100% ; Pain 5/10; bm8 20:29 BP 120 / 86; Pulse 81; Resp 17; Temp 98; Pulse Ox 100% ; Pain 0/10; bm8 18:37 Body Mass Index 49.78 (131.54 kg, 162.56 cm) ll1 18:37 Pain Scale: Adult ll1 19:33 Pain Scale: Adult bm8 20:29 Pain Scale: Adult bm8 Nelly Coma Score: 19:33 Eye Response: spontaneous(4). Motor Response: obeys commands(6). Verbal Response: bm8 oriented(5). Total: 15. 20:29 Eye Response: spontaneous(4). Motor Response: obeys commands(6). Verbal Response: bm8 oriented(5). Total: 15. ED Course: 18:28 Patient arrived in ED. mr 18:29 Samson Sonya, [facility] kb 18:29 Tigre Hirsch MD is Attending Physician. kb 18:29 Arm band placed on. ll1 18:32 Patient placed in an exam room, on a stretcher. ll1 18:38 Triage completed. ll1 19:01 Test, Urine Sent. mb9 19:01 UAM Sent. mb9 19:01 CMP Sent. mb9 19:02 CBC with Diff Sent. mb9 19:02 Lipase Sent. mb9 19:02 Missed attempt(s): 20 gauge in right antecubital area. Bleeding controlled, band aid mb9 applied, catheter tip intact. 19:02 Initial lab(s) drawn, by me, sent to lab. Urine collected: clean catch specimen, clear. mb9 19:06 Report given to Anjel. cm10 19:06 Inserted saline lock: 22 gauge in left antecubital area, using aseptic technique. cm10 Flushed with 10 mL NS. 19:18 Calvin Gomez, RN is Primary Nurse. bm8 19:31 CT Abd/Pelvis - Without Contrast In Process Unspecified. EDMS 19:33 Patient has correct armband on for positive identification. Bed in low position. Call bm8 light in reach. Side rails up X2. Adult w/ patient. Client placed on continuous cardiac and pulse oximetry monitoring. NIBP monitoring applied. Pulse ox on. NIBP on. Door closed. Noise minimized. Lights dimmed. Warm blanket given. Pillow given. Verbal reassurance given. Head of bed elevated. 19:33 No provider procedures requiring assistance completed. IV is patent, with fluids bm8 infusing freely, with good blood return. 19:55 Sonya Davies FNP-C is [facility]. kb 20:29 Provided Education on: post er care. bm8 20:29 IV discontinued, intact, bleeding controlled, No redness/swelling at site. Pressure bm8 dressing applied. Administered Medications: 19:05 Drug: morphine IVP or IV 4 mg IVP once over 4 mins Route: IVP; Infused Over: 4 mins; cm10 Site: left antecubital; 20:30 Follow up: Response: No adverse reaction bm8 19:05 Drug: metoCLOPramide IVP 10 mg IVP once; over 1 to 2 minutes Route: IVP; Site: left cm10 antecubital; 20:30 Follow up: Response: No adverse reaction bm8 19:05 Drug: diphenhydrAMINE IVP 25 mg IVP once Route: IVP; Site: left antecubital; cm10 20:30 Follow up: Response: No adverse reaction bm8 19:05 Drug: NS 0.9% IV 500 ml IV at bolus once Route: IV; Rate: bolus; Site: left antecubital;cm10 20:30 Follow up: Response: No adverse reaction; IV Status: Completed infusion; IV Intake: bm8 500ml Medication: 19:33 VIS not applicable for this client. bm8 Intake: 20:30 IV: 500ml; Total: 500ml. bm8 Outcome: 20:17 Discharge ordered by . kb 20:29 Discharged to home ambulatory, with family, bm8 20:29 Condition: stable 20:29 Discharge instructions given to patient, family, Instructed on discharge instructions, follow up and referral plans. no drinking with medication, no driving heavy equipment, medication usage, safety practices, Demonstrated understanding of instructions, follow-up care, medications, Prescriptions given X 2, 20:31 Patient left the ED. bm8 Signatures: Dispatcher [employer] EDTN Sonya Davies, ELYSSA-C SALESPERSON HANDBAGS-CkGinny James, Reg Reg mr Jackie Harding, RN RN ll1 Ginny Pandey, RN RN mb9 Miranda Palmer, RN RN cm10 Calvin Gomez, RN RN bm8
[2024-05-05 23:32] VITALS: TEMP 98; O2SAT 100
[2024-05-05 23:34] VITALS: BP 120/86
== END 2024-05-05 20:31 | disposition home or self-care (01) ==
LOC: ER 18:27
DX: R10.13 Epigastric pain (principal); F31.9 Bipolar disorder, unspecified
CPT/HCPCS: 85025; 81001; 36415; 81025; 83690; 80053; 74176; J2765; J1200; J7040

== ENCOUNTER 2024-05-24 12:02 | Emergency (ER) | payer OTHER ==
--- NOTE | 2024-05-24 13:23 | EDPHYS ---
Physician Documentation [facility] Name: Corrie Hartman Age: 28 yrs Sex: Female : 1995 Arrival Date: 05/24/2024 Time: 12:02 Bed [id number] Private MD: ED Physician Raul Cristina HPI: 05/24 13:23 This 28 yrs old Female presents to ER via Ambulatory with complaints of hernia surgery ms3 05/10/24, Nausea/Vomiting. 13:23 28-year-old female with past medical history of anxiety, bipolar disorder, depression, ms3 gallstones, hernia, panic attacks, PTSD presents to the emergency department for nausea, vomiting status post hiatal hernia surgery in [place] on May 10. Patient states she has had nausea vomiting for 2 to 3 days. Patient rates her discomfort a 7/10. She denies any alleviating or inciting factors.. Historical: - Allergies: 12:35 No Known Allergies; cm10 - PMHx: 12:35 Anxiety; Bipolar disorder; depressive disorder; GALLSTONES; Hernia; panic attack; PTSD; cm10 Seizure; - PSHx: 12:35 Hernia Repair; section; cm10 - Immunization history:: Adult Immunizations unknown. - Infectious Disease History:: Denies. - Social history:: Smoking status: Reported history of juuling and/or vaping. ROS: 13:23 Constitutional: Negative for fever, and chills. Cardiovascular: Negative for chest ms3 pain, and palpitations. Respiratory: Negative for shortness of breath, cough, wheezing, and pleuritic chest pain, 13:23 MS/Extremity: Negative for injury and deformity, Skin: Negative for injury, rash, and discoloration, 13:23 Abdomen/GI: Positive for nausea and vomiting, Exam: 13:23 Constitutional: This is a well developed, well nourished patient who is awake, alert, ms3 and in no acute distress. Chest/axilla: Normal chest wall appearance and motion. Nontender with no deformity. Cardiovascular: Regular rate and rhythm with a normal S1 and S2. No gallops, murmurs, or rubs. Normal PMI, no JVD. No pulse deficits. Respiratory: Lungs have equal breath sounds bilaterally, clear to auscultation and percussion. No rales, rhonchi or wheezes noted. No increased work of breathing, no retractions or nasal flaring. 13:23 Abdomen/GI: Bowel sounds: normal, Palpation: mild abdominal tenderness, in the epigastric area, Vital Signs: 12:33 BP 124 / 72; Pulse 94; Resp 16; Temp 98.6(O); Pulse Ox 98% on R/A; Weight 132.9 kg (M); cm10 Height 5 ft. 4 in. ; Pain 7/10; 13:20 BP 98 / 57; Pulse 84; Resp 18; Pulse Ox 96% ; db 12:33 Body Mass Index 50.29 (132.90 kg, 162.56 cm) cm10 12:33 Pain Scale: Adult cm10 MDM: 13:07 Medical Screening Exam initiated ms3 13:23 Differential diagnosis: Nonspecific abd pain, Obstruction versus dehydration. Data ms3 reviewed: vital signs, nurses notes. Counseling: I had a detailed discussion with the patient and/or guardian regarding the historical points, exam findings, and any diagnostic results supporting the discharge/admit diagnosis, the need for outpatient follow up. Refusal of service: The patient/guardian displays adequate decision making capability and despite a detailed discussion of alternatives, benefits, risks, and consequences refuses: CT Scan, all lab tests, Medications. ED course: Notified by nursing staff patient wishing to go home. Discussed with patient we are unable to make diagnosis without additional testing to involve labs and CT scan. Discussed necessity of labs and imaging with patient and her boyfriend and patient states she wishes to leave. Discussed with patient she could have or disability secondary to inability to diagnose without additional testing. Patient's boyfriend attempted to get patient to remain in the emergency department for further testing and patient declines. Discussed with patient she may return at any time to continue her care.. Administered Medications: 13:54 Not Given (Patient Refused): ondansetron 4 mg IVP once; over 2 minutes iw 13:54 Not Given (Patient Refused): ns 0.9% 1000 ml IV at 1 bolus Per protocol; to be given as iw a bolus over 60 minutes Disposition Summary: 05/24/24 13:22 Discharge Ordered Notes: Location: Home ms3 Condition: Stable ms3 Diagnosis - Abdominal pain, unspecified ms3 - Vomiting ms3 Followup: ms3 - With: Private Physician - When: 2 - 3 days - Reason: Recheck today's complaints Discharge Instructions: - Discharge Summary Sheet ms3 - Abdominal Pain, Adult ms3 - Vomiting, Adult ms3 Forms: - Medication Reconciliation Form ms3 - Antibiotic Education ms3 - Prescription Opioid Use ms3 - Patient Portal Instructions ms3 - Leadership Thank You Letter ms3 Signatures: Dispatcher [employer] EDMS Raul Cristina DO DO ms3 Miranda Palmer RN RN cm10 Joselyn Lopez RN Corrections: (The following items were deleted from the chart) 13:07 13:07 CBC+H.LAB.BRZ ordered. EDMS EDMS 13:07 13:07 COMPREHENSIVE METABOLIC PANEL+C.LAB.BRZ ordered. EDMS EDMS 13:07 13:07 LIPASE+C.LAB.BRZ ordered. EDMS EDMS 13:07 13:07 Abdomen Pelvis W Con+CT.RAD.BRZ ordered. EDMS EDMS
--- NOTE | 2024-05-24 13:23 | ER ---
Nurse's Notes [facility] Name: Corrie Hartman Age: 28 yrs Sex: Female : 1995 Arrival Date: 05/24/2024 Time: 12:02 Bed [id number] Private MD: Diagnosis: Abdominal pain, unspecified;Vomiting Presentation: 05/24 12:33 Chief complaint: Patient states: HAD HERNIA SURGERY 05/10 AND WAS PLACED ON A LIQUID cm10 DIET. PT STATES THAT SHE HAS NOT BEEN ABLE TO KEEP ANYTHING DOWN FOR THE LAST 3-4 DAYS. Coronavirus screen: Client denies travel out of the [place] in the last 14 days. Ebola Screen: Patient denies travel to an Ebola-affected area in the 21 days before illness onset. No symptoms or risks identified at this time. Initial Sepsis Screen: Does the patient meet any 2 criteria? HR > 90 bpm. Does the patient have a suspected source of infection? No. Patient's initial sepsis screen is negative. Risk Assessment: Do you want to hurt yourself or someone else? Patient reports no desire to harm self or others. Onset of symptoms was May 20, 2024. 12:33 Method Of Arrival: Ambulatory cm10 12:33 Acuity: MARKO 3 cm10 Triage Assessment: 12:35 General: Appears in no apparent distress. uncomfortable, Behavior is calm, cooperative. cm10 Neuro: No deficits noted. Level of Consciousness is awake, alert, obeys commands, Oriented to person, place, time, situation, Appropriate for age. Respiratory: No deficits noted. Airway is patent Respiratory effort is even, unlabored, Respiratory pattern is regular, symmetrical. Historical: - Allergies: 12:35 No Known Allergies; cm10 - PMHx: 12:35 Anxiety; Bipolar disorder; depressive disorder; GALLSTONES; Hernia; panic attack; PTSD; cm10 Seizure; - PSHx: 12:35 Hernia Repair; section; cm10 - Immunization history:: Adult Immunizations unknown. - Infectious Disease History:: Denies. - Social history:: Smoking status: Reported history of juuling and/or vaping. Screenin:20 [facility] ED Fall Risk Assessment (Adult) History of falling in the last 3 months, db including since admission No falls in past 3 months (0 pts) Confusion or Disorientation No (0 pts) Intoxicated or Sedated No (0 pts) Impaired Gait No (0 pts) Mobility Assist Device Used No (0 pt) Altered Elimination No (0 pt) Score/Fall Risk Level 0 - 2 = Low Risk Oriented to surroundings, Maintained a safe environment. Abuse screen: Denies threats or abuse. Denies injuries from another. Nutritional screening: No deficits noted. Tuberculosis screening: No symptoms or risk factors identified. Assessment: 13:20 Reassessment: Patient appears in no apparent distress at this time. Patient is alert, db oriented x 3, equal unlabored respirations, skin warm/dry/pink. General: Appears in no apparent distress. comfortable. Neuro: Level of Consciousness is awake, alert, obeys commands, Oriented to person, place, time, situation. 13:21 Visitor restriction implemented due to in-person visitations may lead to the db transmission of an infectious agent. Restricted visitation is valid for not more than 5 days unless renewed by the attending provider. Reassessment: PATIENT REPORTS IS LEAVING AMA. Vital Signs: 12:33 BP 124 / 72; Pulse 94; Resp 16; Temp 98.6(O); Pulse Ox 98% on R/A; Weight 132.9 kg (M); cm10 Height 5 ft. 4 in. ; Pain 7/10; 13:20 BP 98 / 57; Pulse 84; Resp 18; Pulse Ox 96% ; db 12:33 Body Mass Index 50.29 (132.90 kg, 162.56 cm) cm10 12:33 Pain Scale: Adult cm10 ED Course: 12:05 Patient arrived in ED. im 12:11 Raul Cristina DO is Attending Physician. ms3 12:35 Triage completed. cm10 12:35 Arm band placed on Patient placed in an exam room, on a stretcher. cm10 13:14 Susie Tidwell, RN is Primary Nurse. db 13:20 Patient has correct armband on for positive identification. Bed in low position. Call db light in reach. Side rails up X 1. Provided Education on: AMA AND DISCHARGE. Pulse ox on. NIBP on. Warm blanket given. Pillow given. 13:20 No provider procedures requiring assistance completed. Patient did not have IV access db during this emergency room visit. Administered Medications: 13:54 Not Given (Patient Refused): ondansetron 4 mg IVP once; over 2 minutes iw 13:54 Not Given (Patient Refused): ns 0.9% 1000 ml IV at 1 bolus Per protocol; to be given as iw a bolus over 60 minutes Medication: 13:20 VIS not applicable for this client. db Outcome: 13:20 Discharge instructions given to patient, Instructed on follow up and referral plans. db LEAVING AGAINST MEDICAL ADVICE AND TO FOLLOWUP IF SYMPTOMS PERSIST 13:22 Discharge ordered by . ms3 13:53 Discharged to home ambulatory, with family, iw 13:53 Condition: unchanged :54 Patient left the ED. iw Signatures: Joselyn Lopez, RN RN iw Raul Cristina DO DO ms3 Susie Tidwell, RN RN db Ju Bob Clarissa, RN RN cm10
[2024-05-24 14:05] VITALS: BP 124/72; TEMP 98.6; O2SAT 98
== END 2024-05-24 13:54 | disposition home or self-care (01) ==
LOC: ER 12:02
DX: R10.13 Epigastric pain (principal); R11.2 Nausea with vomiting, unspecified; Z98.890 Other specified postprocedural states
CPT/HCPCS: 99283

== ENCOUNTER 2024-08-18 18:35 | Emergency (ER) | payer OTHER ==
[2024-08-18 19:58] LABS: Absolute Eosinophils 0.1 K/uL (0-0.5); Absolute Lymphocytes (CBC) 1.6 K/uL (0.7-4.9); Absolute Monocytes 0.3 K/uL (0.1-1.3); Absolute Neutrophil 3.5 K/uL (1.8-8.0); Basophils % 0.5 % (0-1.3); Hematocrit 32.9 % (36.0-45.0); Hemoglobin 11.3 g/dL (12.0-15.0); Lymphocytes % 29.1 % (15.3-44.8); MCH 28.9 pg (27.0-35.0); MCHC 34.2 g/dL (32.0-36.0); MCV 84.3 fL (80-100); MPV 7.4 fL (7.6-11.3); Monocytes % 4.8 % (3.3-12.3); Neutrophils % 63.6 % (41.7-73.7); Platelets 260 thou/uL (152-406); Red Cell Distribution Width 14.6 % (12.1-15.2)
[2024-08-18 20:13] LABS: Specific Gravity 1.005 (1.005-1.030); Urine Bacteria <20 /HPF (<20); Urine Bilirubin NEGATIVE (Negative); Urine Blood Negative (Negative); Urine Clarity Extremely Turbid (Clear); Urine Color Colorless (Yellow); Urine Crystals Unidentified Few /HPF (None Seen); Urine Culture Reflex Order REFLEXED; Urine Glucose NEGATIVE (Negative); Urine Ketones NEGATIVE (Negative); Urine Micro Reflex YN NO BILL MICROSCOPIC; Urine Mucus Slight /HPF (None Seen); Urine Nitrite NEGATIVE (Negative); Urine Protein NEGATIVE (Negative); Urine RBC <5 /HPF (None Seen); Urine Urobilinogen Normal (Normal); Urine WBC 20-50 /HPF (<5)
[2024-08-18 20:17] LABS: Anion Gap 10.3 mEq/L (5.0-15.0); Potassium 3.3 mEq/L (3.5-5.1)
--- NOTE | 2024-08-18 20:23 | RAD REPORT ---
EXAMINATION: Transvaginal OB COMPARISON: None. HISTORY: ABD CRAMPING, TECHNIQUE: Real-time ultrasound was performed through the pelvis. A transvaginal scan was performed t o better visualize the intrauterine contents and adnexa. FINDINGS: Uterus is normal size. Endometrium is thickened to 11 mm. There is no gestational sac seen. Both ovar ies are unremarkable with normal blood flow. IMPRESSION: Thickened endometrial stripe to 11 mm. No IUP is seen. This can still represent early IUP. Advise ser ial hCG measurements and follow-up sonography in 10-12 days.
[2024-08-18] MEDS ORDERED: ACETAMINOPHEN 500 MG TAB ONE (20:28)
--- NOTE | 2024-08-18 20:50 | EDPHYS ---
Physician Documentation [facility] Name: Corrie Hartman Age: 28 yrs Sex: Female : 1995 Arrival Date: 08/18/2024 Time: 18:35 Bed 7 Private MD: ED Physician Bryant Castro HPI: 08/18 19:23 This 28 yrs old Female presents to ER via Ambulatory with complaints of ec2 Vaginal cramping:. 19:23 Patient arrives today for evaluation of vaginal cramping. Reports at home positive ec2 test. Also reports has been having some increased urination. No vomiting, no diarrhea, no abdominal pain, no vaginal bleeding.. ENTERPRISE INTEGRATION ARCHITECT: 20:55 4, Full Term 3, Verified bm8 Historical: - Allergies: 18:52 No Known Allergies; ld1 - PMHx: 18:52 Anxiety; Bipolar disorder; depressive disorder; GALLSTONES; Hernia; panic attack; PTSD; ld1 Seizure; - PSHx: 18:52 section; hernia repair; ld1 - Immunization history:: Adult Immunizations up to date. - Infectious Disease History:: Denies. - Social history:: Smoking status: Patient denies any tobacco usage or history of. - Family history:: not pertinent. ROS: 19:23 Constitutional: as per hpi ec2 20:45 All other systems are negative, sp4 Exam: 19:23 Constitutional: GEN: NAD Head: atraumatic Eyes: EOMI Ears: External ears are ec2 normal. CV: regular rate LUNGS: no respiratory distress ABD: non-distended, soft, nontender, not guarding and not rigid SKIN: no evidence of rashes MSK: no evidence of trauma 20:45 Constitutional: This is a well developed, well nourished patient who is awake, alert, sp4 and in no acute distress. Head/Face: Normocephalic, atraumatic. Eyes: Pupils equal round and reactive to light, extra-ocular motions intact. Lids and lashes normal. Conjunctiva and sclera are not injected. Cornea within normal limits. Periorbital areas with no swelling, redness, or edema. ENT: Nares patent. No nasal discharge, no septal abnormalities noted. Tympanic membranes are normal and external auditory canals are clear. Oropharynx with no redness, swelling, or masses, exudates, or evidence of obstruction, uvula midline. Mucous membranes moist. Neck: Trachea midline, no thyromegaly or masses palpated, and no cervical lymphadenopathy. Supple, full range of motion without nuchal rigidity, or vertebral point tenderness. Chest/axilla: Normal chest wall appearance and motion. Nontender with no deformity. No lesions are appreciated. Cardiovascular: Regular rate and rhythm with a normal S1 and S2. No gallops, murmurs, or rubs. Normal PMI, no JVD. No pulse deficits. Respiratory: Lungs have equal breath sounds bilaterally, clear to auscultation and percussion. No rales, rhonchi or wheezes noted. No increased work of breathing, no retractions or nasal flaring. Abdomen/GI: Soft, with normal bowel sounds. No distension or tympany. No guarding or rebound. No evidence of tenderness throughout. Back: No spinal tenderness. No costovertebral tenderness. Skin: Warm, dry with normal turgor. Normal color with no rashes, no lesions, and no evidence of cellulitis. MS/ Extremity: Pulses equal, no cyanosis. Neurovascular intact. Full, normal range of motion. Neuro: Awake and alert, GCS 15, oriented to person, place, time, and situation. Cranial nerves II-XII grossly intact. Motor strength 5/5 in all extremities. Sensory grossly intact. Psych: Awake, alert, with orientation to person, place and time. Behavior, mood, and affect are within normal limits Vital Signs: 18:51 Weight 117.93 kg; Height 5 ft. 4 in. ; Pain 9/10; ld1 18:51 Pulse 77; Resp 18; Temp 97.8(TE); Pulse Ox 98% on R/A; ld1 18:54 BP 116 / 88; ld1 19:31 BP 107 / 84; Pulse 78; Resp 20; Temp 98.5; Pulse Ox 100% on R/A; ay 20:50 BP 129 / 79; Pulse 80; Resp 17; Temp 98.6; Pulse Ox 99% ; Pain 0/10; bm8 18:51 Body Mass Index 44.63 (117.93 kg, 162.56 cm) ld1 18:51 Pain Scale: Adult ld1 20:50 Pain Scale: Adult bm8 [place]elly Coma Score: 19:31 Eye Response: spontaneous(4). Motor Response: obeys commands(6). Verbal Response: ay oriented(5). Total: 15. 20:45 Eye Response: spontaneous(4). Motor Response: obeys commands(6). Verbal Response: sp4 oriented(5). Total: 15. 20:50 Eye Response: spontaneous(4). Motor Response: obeys commands(6). Verbal Response: bm8 oriented(5). Total: 15. MDM: 18:41 Medical Screening Exam initiated ec2 19:23 Data reviewed: vital signs, nurses notes. ED course: Patient arrives today for ec2 evaluation of of abdominal cramping in the setting of positive at-home test. Examination is unrevealing. Will obtain lab work and ultrasonography as well as UA.. 20:45 Differential Diagnosis Miscarriage . ED course: EXAMINATION: Transvaginal OB sp4 COMPARISON: None. HISTORY: ABD CRAMPING, TECHNIQUE: Real-time ultrasound was performed through the pelvis. A transvaginal scan was performed to better visualize the intrauterine contents and adnexa. FINDINGS: Uterus is normal size. Endometrium is thickened to 11 mm. There is no gestational sac seen. Both ovaries are unremarkable with normal blood flow. IMPRESSION: Thickened endometrial stripe to 11 mm. No IUP is seen. This can still represent early IUP. Advise serial hCG measurements and follow-up sonography in 10-12 days. . 08/18 18:56 Order name: HCG-Quantitative; Complete Time: 20:27 ec2 08/18 18:56 Order name: CBC with Diff; Complete Time: 20:03 ec2 08/18 18:56 Order name: BMP; Complete Time: 20:27 ec2 08/18 18:57 Order name: UAM; Complete Time: 20:27 ec2 08/18 20:47 Order name: Urine Culture EDMS 08/18 18:42 Order name: Transvaginal OB US; Complete Time: 20:27 ec2 Administered Medications: 20:30 Drug: Acetaminophen PO 1000 mg PO once Route: PO; bm8 20:54 Follow up: Response: No adverse reaction bm8 Disposition Summary: 08/18/24 20:50 Discharge Ordered Problem: new sp4 Symptoms: have improved sp4 Condition: Stable sp4 Diagnosis - First trimester , vaginal pain, acute urinary tract infection sp4 Followup: sp4 - With: Private Physician - When: 2 - 3 days - Reason: Recheck today's complaints Discharge Instructions: - Discharge Summary Sheet sp4 - First Trimester of , [id number] sp4 Forms: - Patient Portal Instructions sp4 Prescriptions: - Macrobid 100 mg Oral Capsule - take 1 capsule ORAL route every 12 hours for 10 days; 20 capsule; Refills: 0, sp4 Product Selection Permitted Signatures: Dispatcher [employer] Juli Sauceda, RN RN ld1 Bryant Castro MD MD sp4 Tigre Hirsch MD MD ec2 Calvin Gomez, RN RN bm8
--- NOTE | 2024-08-18 20:50 | ER ---
Nurse's Notes [facility] Name: Corrie Hartman Age: 28 yrs Sex: Female : 1995 Arrival Date: 08/18/2024 Time: 18:35 Bed 7 Private MD: Diagnosis: First trimester , vaginal pain, acute urinary tract infection Presentation: 08/18 18:51 Chief complaint: Patient states: Lower abdominal pain - test at home positive ld1 today. Denies vaginal bleeding. Coronavirus screen: At this time, the client does not indicate any symptoms associated with coronavirus-19. Ebola Screen: No symptoms or risks identified at this time. Initial Sepsis Screen: Does the patient meet any 2 criteria? No. Patient's initial sepsis screen is negative. Does the patient have a suspected source of infection? No. Patient's initial sepsis screen is negative. 18:51 Method Of Arrival: Ambulatory ld1 18:52 Risk Assessment: Do you want to hurt yourself or someone else? Patient reports no ld1 desire to harm self or others. Onset of symptoms was August 18, 2024. 18:52 Acuity: MARKO 4 ld1 Triage Assessment: 18:52 General: Appears in no apparent distress. uncomfortable, Behavior is calm, cooperative, ld1 appropriate for age. Pain: Complains of pain in abdomen Pain does not radiate. Pain currently is 8 out of 10 on a pain scale. Quality of pain is described as throbbing, Pain began suddenly. EENT: No signs and/or symptoms were reported regarding the EENT system. Neuro: Level of Consciousness is awake, alert, obeys commands, Oriented to person, place, time, situation. Cardiovascular: Capillary refill < 3 seconds Patient's skin is warm and dry. Respiratory: Airway is patent Respiratory effort is even, unlabored. GI: Abdomen is round non-distended. : No signs and/or symptoms were reported regarding the genitourinary system. Derm: No signs and/or symptoms reported regarding the dermatologic system. Musculoskeletal: No signs and/or symptoms reported regarding the musculoskeletal system. BREASTER: 20:55 4, Full Term 3, Verified bm8 Historical: - Allergies: 18:52 No Known Allergies; ld1 - PMHx: 18:52 Anxiety; Bipolar disorder; depressive disorder; GALLSTONES; Hernia; panic attack; PTSD; ld1 Seizure; - PSHx: 18:52 section; hernia repair; ld1 - Immunization history:: Adult Immunizations up to date. - Infectious Disease History:: Denies. - Social history:: Smoking status: Patient denies any tobacco usage or history of. - Family history:: not pertinent. Screenin:31 [facility] ED Fall Risk Assessment (Adult) History of falling in the last 3 months, ay including since admission No falls in past 3 months (0 pts) Confusion or Disorientation No (0 pts) Intoxicated or Sedated No (0 pts) Impaired Gait No (0 pts) Mobility Assist Device Used No (0 pt) Altered Elimination Yes (1 pt) Score/Fall Risk Level 0 - 2 = Low Risk. [facility] ED Fall Risk Assessment (Adult) Score/Fall Risk Level 0 - 2 = Low Risk Oriented to surroundings, Maintained a safe environment, Educated pt \T\ family on fall prevention, incl call for assistance when getting out of bed. Abuse screen: Denies injuries from another. Nutritional screening: No deficits noted. Tuberculosis screening: No symptoms or risk factors identified. Assessment: 19:31 General: Appears in no apparent distress. comfortable, Behavior is calm, cooperative. ay Pain: Complains of pain in groin. Neuro: Level of Consciousness is awake, alert, obeys commands, Oriented to person, place, time, situation, Speech is normal. Cardiovascular: Denies chest pain, nausea, vomiting, Capillary refill < 3 seconds. Respiratory: Airway is patent Respiratory effort is even, unlabored, Respiratory pattern is regular, symmetrical. GI: Abdomen is obese. : Reports burning with urination, since 3 days cramping. EENT: No signs and/or symptoms were reported regarding the EENT system. Derm: No signs and/or symptoms reported regarding the dermatologic system. Musculoskeletal: No signs and/or symptoms reported regarding the musculoskeletal system. 20:50 Reassessment: Patient appears in no apparent distress at this time. Patient and/or bm8 family updated on plan of care and expected duration. Pain level reassessed. Patient is alert, oriented x 3, equal unlabored respirations, skin warm/dry/pink. Patient states feeling better. : Reports burning with urination, cramping, supra pubic pain. Vital Signs: 18:51 Weight 117.93 kg; Height 5 ft. 4 in. ; Pain 9/10; ld1 18:51 Pulse 77; Resp 18; Temp 97.8(TE); Pulse Ox 98% on R/A; ld1 18:54 BP 116 / 88; ld1 19:31 BP 107 / 84; Pulse 78; Resp 20; Temp 98.5; Pulse Ox 100% on R/A; ay 20:50 BP 129 / 79; Pulse 80; Resp 17; Temp 98.6; Pulse Ox 99% ; Pain 0/10; bm8 18:51 Body Mass Index 44.63 (117.93 kg, 162.56 cm) ld1 18:51 Pain Scale: Adult ld1 20:50 Pain Scale: Adult bm8 [place] Coma Score: 19:31 Eye Response: spontaneous(4). Motor Response: obeys commands(6). Verbal Response: ay oriented(5). Total: 15. 20:45 Eye Response: spontaneous(4). Motor Response: obeys commands(6). Verbal Response: sp4 oriented(5). Total: 15. 20:50 Eye Response: spontaneous(4). Motor Response: obeys commands(6). Verbal Response: bm8 oriented(5). Total: 15. ED Course: 18:39 Patient arrived in ED. ra3 18:41 Tigre Hirsch MD is Attending Physician. ec2 18:52 Triage completed. ld1 18:52 Arm band placed on right wrist. ld1 19:31 Bettina Rodgers, RN is Primary Nurse. ay 19:31 Patient has correct armband on for positive identification. Bed in low position. Call ay light in reach. Side rails up X2. Adult w/ patient. 19:37 Client placed on continuous cardiac and pulse oximetry monitoring. NIBP monitoring bm8 applied. Pulse ox on. NIBP on. Door closed. Noise minimized. Warm blanket given. Pillow given. Verbal reassurance given. Head of bed elevated. 19:37 No provider procedures requiring assistance completed. Initial lab(s) drawn, by ED bm8 staff, sent to lab. Urine collected: clean catch specimen, cloudy. Patient maintains SpO2 saturation greater than 95% on room air. 20:04 Inserted saline lock: 22 gauge in left antecubital area, using aseptic technique. Blood vk collected. Flushed with 10 mL NS. 20:09 Attending Physician role handed off by Tigre Hirsch MD sp4 20:09 Bryant Castro MD is Attending Physician. sp4 20:15 Transvaginal OB US In Process Unspecified. EDMS 20:50 Provided Education on: post er care, follow up with OBGYN. bm8 20:50 IV discontinued, intact, bleeding controlled, No redness/swelling at site. Pressure bm8 dressing applied. Administered Medications: 20:30 Drug: Acetaminophen PO 1000 mg PO once Route: PO; bm8 20:54 Follow up: Response: No adverse reaction bm8 Medication: 19:37 VIS not applicable for this client. bm8 Outcome: 20:50 Discharge ordered by . sp4 20:50 Discharged to home ambulatory, bm8 20:50 Condition: stable 20:50 Discharge instructions given to patient, family, Instructed on discharge instructions, follow up and referral plans. medication usage, safe sex practices, safety practices, Demonstrated understanding of instructions, follow-up care, medications, Prescriptions given X 1, 20:55 Prescriptions given X bm8 21:00 Patient left the ED. bm8 Addendum: 08/22/2024 07:31 Addendum: Culture Results: Positive urine culture. No further action required. Bacteria e b sensitive to prescribed antibiotic. Signatures: Dispatcher [employer] [facility] Jazmyne Lockwood Lauren, RN RN ld1 Bryant Castro MD MD sp4 Tigre Hirsch MD MD ec2 Chelsey Adan ra3 Ashley Culver Brad RN RN bm8 Bettina Rodgers RN RN ay Corrections: (The following items were deleted from the chart) 08/18 18:52 18:51 Chief complaint: Patient states: Lower abdominal pain - test at home ld1 positive today. ld1
[2024-08-19 01:52] VITALS: BP 129/79; TEMP 98.6; O2SAT 99
== END 2024-08-18 21:00 | disposition home or self-care (01) ==
LOC: ER 18:35
DX: O23.41 Unspecified infection of urinary tract in pregnancy, first trimester (principal); Z3A.00 Weeks of gestation of pregnancy not specified
CPT/HCPCS: 36415; 76817; 80048; 81001; 84702; 85025; 87077; 87086; 87088; 87186; 99284

== ENCOUNTER 2024-08-20 12:42 | Emergency (ER) | payer OTHER ==
--- NOTE | 2024-08-20 14:46 | ER ---
Nurse's Notes [facility] Name: Corrie Hartman Age: 28 yrs Sex: Female : 1995 Arrival Date: 08/20/2024 Time: 12:42 Bed DX5 Private MD: Diagnosis: related conditions, unspecified, first trimester Presentation: 08/20 12:59 Chief complaint: Seen in ED 2 days ago for abdominal pain and UTI, approx 4 weeks hb , here for HCG level checked. Coronavirus screen: At this time, the client does not indicate any symptoms associated with coronavirus-19. Ebola Screen: No symptoms or risks identified at this time. Initial Sepsis Screen: Does the patient meet any 2 criteria? No. Patient's initial sepsis screen is negative. Does the patient have a suspected source of infection? No. Patient's initial sepsis screen is negative. Risk Assessment: Do you want to hurt yourself or someone else? Patient reports no desire to harm self or others. Onset of symptoms was August 18, 2024. 12:59 Method Of Arrival: Ambulatory hb 12:59 Acuity: MARKO 4 hb Triage Assessment: 14:49 General: Appears in no apparent distress. Behavior is calm, cooperative, appropriate ap3 for age. Pain: Denies pain. Neuro: Level of Consciousness is awake, alert, obeys commands, Oriented to person, place, time, situation, Appropriate for age. 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 - Infectious Disease History:: Denies. - Social history:: Smoking status: unknown. Screenin:49 [facility] ED Fall Risk Assessment (Adult) History of falling in the last 3 months, ap3 including since admission No falls in past 3 months (0 pts) Confusion or Disorientation No (0 pts) Intoxicated or Sedated No (0 pts) Impaired Gait No (0 pts) Mobility Assist Device Used No (0 pt) Altered Elimination No (0 pt) Score/Fall Risk Level 0 - 2 = Low Risk Oriented to surroundings, Maintained a safe environment, Educated pt \T\ family on fall prevention, incl call for assistance when getting out of bed, Assessed \T\ reinforced patient's understanding of fall precautions, Hourly rounding (assess needs \T\ fall precautionary measures) done, Used ambulatory aids as needed (educated on \T\ assisted with), Used gait belt as appropriate. Abuse screen: Denies threats or abuse. Nutritional screening: No deficits noted. Tuberculosis screening: No symptoms or risk factors identified. Vital Signs: 12:59 BP 115 / 82; Pulse 100; Resp 16; Temp 97.3; Pulse Ox 100% on R/A; Weight 117.93 kg; hb Height 5 ft. 4 in. ; Pain 0/10; 12:59 Body Mass Index 44.63 (117.93 kg, 162.56 cm) hb 12:59 Pain Scale: Adult hb ED Course: 12:44 Patient arrived in ED. al6 12:44 Jose Zavala MD is Attending Physician. rt 13:01 Triage completed. hb 13:03 Arm band placed on. hb 13:40 HCG-Quantitative Sent. tm3 14:49 Patient has correct armband on for positive identification. Adult w/ patient. ap3 14:49 No provider procedures requiring assistance completed. Patient did not have IV access ap3 during this emergency room visit. Administered Medications: No medications were administered Medication: 14:49 VIS not applicable for this client. ap3 Outcome: 14:46 Discharge ordered by MD. rt 14:49 Discharged to home ambulatory, with family, ap3 14:49 Condition: good 14:49 Discharge instructions given to patient, Instructed on discharge instructions, follow up and referral plans. Demonstrated understanding of instructions, follow-up care, 14:50 Patient left the ED. ap3 Signatures: Sunil Romero tm3 Correi Perkins RN RN hb Rekha Kirby RN RN ap3 Jose Zavala MD MD rt Hui Wagner al6 Corrections: (The following items were deleted from the chart) 13:03 12:59 Chief complaint: Seen in ED 2 days ago for UTI, here for HCG level recheck. hb hb 13:03 12:59 Chief complaint: Approx 4 weeks , , seen in ED 2 days ago for hb abdominal pain, here for HCG level recheck. hb
--- NOTE | 2024-08-20 14:46 | EDPHYS ---
Physician Documentation [facility] Name: Corrie Hartman Age: 28 yrs Sex: Female : 1995 Arrival Date: 08/20/2024 Time: 12:42 Bed DX5 Private MD: ED Physician Jose Zavala HPI: 08/20 14:46 This 28 yrs old Female presents to ER via Ambulatory with complaints of hcg level check.rt 14:46 Patient presents to the ED for repeat beta-hCG. Patient was seen in the ED a few days rt ago, diagnosed with UTI, is currently taking her antibiotics, has improving symptoms. Only reports fatigue at this time. Denies any vaginal bleeding. Denies other acute complaint, symptoms are mild in severity, no other aggravating or alleviating factors.. 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 - Infectious Disease History:: Denies. - Social history:: Smoking status: unknown. ROS: 14:46 Cardiovascular: Negative for chest pain, palpitations, and edema, Respiratory: Negative rt for shortness of breath, cough, wheezing, and pleuritic chest pain, Abdomen/GI: Negative for abdominal pain, nausea, vomiting, diarrhea, and constipation, : Negative for injury, bleeding, discharge, and swelling, MS/Extremity: Negative for injury and deformity, Skin: Negative for injury, rash, and discoloration, 14:46 Constitutional: Positive for fatigue, Negative for fever, Exam: 14:46 Constitutional: This is a well developed, well nourished patient who is awake, alert, rt and in no acute distress. Head/Face: Normocephalic, atraumatic. Chest/axilla: Normal chest wall appearance and motion. Nontender with no deformity. No lesions are appreciated. Cardiovascular: Regular rate and rhythm with a normal S1 and S2. No gallops, murmurs, or rubs. Normal PMI, no JVD. No pulse deficits. Respiratory: Lungs have equal breath sounds bilaterally, clear to auscultation and percussion. No rales, rhonchi or wheezes noted. No increased work of breathing, no retractions or nasal flaring. Abdomen/GI: Soft, non-tender, with normal bowel sounds. No distension or tympany. No guarding or rebound. No evidence of tenderness throughout. Skin: Warm, dry with normal turgor. Normal color with no rashes, no lesions, and no evidence of cellulitis. MS/ Extremity: Pulses equal, no cyanosis. Neurovascular intact. Full, normal range of motion. Neuro: Awake and alert, GCS 15, oriented to person, place, time, and situation. Cranial nerves II-XII grossly intact. Motor strength 5/5 in all extremities. Sensory grossly intact. Cerebellar exam normal. Normal gait. Vital Signs: 12:59 BP 115 / 82; Pulse 100; Resp 16; Temp 97.3; Pulse Ox 100% on R/A; Weight 117.93 kg; hb Height 5 ft. 4 in. ; Pain 0/10; 12:59 Body Mass Index 44.63 (117.93 kg, 162.56 cm) hb 12:59 Pain Scale: Adult hb MDM: 13:06 Medical Screening Exam initiated rt 14:46 Differential Diagnosis First trimester . Data reviewed: vital signs, nurses rt notes, lab test result(s). Counseling: I had a detailed discussion with the patient and/or guardian regarding the historical points, exam findings, and any diagnostic results supporting the discharge/admit diagnosis, lab results, the need for outpatient follow up, to return to the emergency department if symptoms worsen or persist or if there are any questions or concerns that arise at home. ED course: Uptrending beta-hCG is reassuring. Patient continues to deny any vaginal bleeding. I have a low suspicion for impending, threatened miscarriage, ectopic . Patient was informed that she is below the discriminatory zone, that she should continue to follow-up with RN SEXUAL ASSAULT as an outpatient for confirmatory ultrasound. Patient instructed to return to the ED sooner if she develops any vaginal bleeding.. 08/20 12:46 Order name: HCG-Quantitative; Complete Time: 14:13 rt Administered Medications: No medications were administered Disposition Summary: 08/20/24 14:46 Discharge Ordered Notes: Location: Home rt Problem: new rt Symptoms: are unchanged rt Condition: Stable rt Diagnosis - related conditions, unspecified, first trimester rt Followup: rt - With: Private Physician - When: 5 - 6 days - Reason: Discharge Instructions: - Discharge Summary Sheet rt - First Trimester of rt Forms: - Medication Reconciliation Form rt - Antibiotic Education rt - Prescription Opioid Use rt - Patient Portal Instructions rt - Leadership Thank You Letter rt Signatures: Dispatcher [employer] Corrie Tony RN RN Rekha Kirby RN RN ap3 Jose Zavala MD MD rt
[2024-08-20 16:32] VITALS: BP 115/82; TEMP 97.3; O2SAT 100
== END 2024-08-20 14:50 | disposition home or self-care (01) ==
LOC: ER 12:42
DX: O26.891 Other specified pregnancy related conditions, first trimester (principal); Z3A.00 Weeks of gestation of pregnancy not specified
CPT/HCPCS: 36415; 84702; 99283